=== PATIENT | female | born 1970 | race Caucasian/White ===

== ENCOUNTER 2020-02-27 13:07 | Outpatient (REF) | payer BC, SELFPAY | END 2020-02-27 13:08 | disposition home or self-care (01) | LOC: HO.HMGCLDS 13:07 | PROVIDERS: PCP Internal Medicine; Visit Provider Internal Medicine | DX: Z20.828 Contact with and (suspected) exposure to other viral communicable diseases (principal) | CPT/HCPCS: C9803; U0003 ==

== ENCOUNTER 2020-04-22 13:40 | Outpatient (REF) | payer BC, SELFPAY ==
--- NOTE | 2020-04-22 13:44 | MM_ITS ---
EXAMINATION: MM SCREENING DIGITAL BREAST TOMOSYNTHESIS, BILATERAL CLINICAL INFORMATION: Screening. Asymptomatic. The lifetime risk of breast cancer based on the Tyrer-Cuzick Model is 8%. COMPARISON: Mammography: 12/20/2018, 12/15/2018, 01/13/2017, 08/22/2015; targeted ultrasound left breast 12/20/2018 TECHNIQUE: Digital breast tomosynthesis is performed in both the craniocaudal and mediolateral oblique views along with computer-aided detection (CAD). Synthesized 2D images are generated from the tomosynthesis. FINDINGS: There are scattered areas of fibroglandular density (ACR BI-RADS breast composition Category b). Parenchymal pattern is similar to prior studies. There are scattered asymmetries similar to prior exams. There is no significant mass or architectural abnormality. No abnormal calcifications. The axilla are unremarkable. The skin contours are smooth. MM/MM tomosynthesis screening BI IMPRESSION: No significant changes from prior studies. ASSESSMENT: BI-RADS 1: Negative RECOMMENDATION: Routine annual mammography screening. This patient's information was entered into a reminder system with a target due date for their next mammogram.
== END 2020-04-22 13:41 | disposition home or self-care (01) ==
LOC: HO.MAMMO 13:40
PROVIDERS: PCP Internal Medicine; Visit Provider Internal Medicine
DX: Z12.31 Encounter for screening mammogram for malignant neoplasm of breast (principal)
CPT/HCPCS: 77063; 77067

== ENCOUNTER → 2020-06-18 08:41 | Outpatient (BNVA) | payer BC, SELFPAY | PROVIDERS: PCP Internal Medicine; Visit Provider Nurse Practitioner Gerontology | DX: E11.9 Type 2 diabetes mellitus without complications (principal); E66.9 Obesity, unspecified; I10 Essential (primary) hypertension; E78.00 Pure hypercholesterolemia, unspecified | CPT/HCPCS: 82947 ==

== ENCOUNTER 2021-12-13 08:58 | Outpatient (REF) | payer OTHER, SELFPAY ==
[2021-12-13 11:15] LABS: MANUAL DIFF FLAG NO
[2021-12-13 11:25] LABS: Basophils Absolute Auto 0.1 X10*3/uL (0.0-0.2); Basophils Percent Auto 0.8 % (0-2); Eosinophils Absolute Auto 0.1 X10*3/uL (0.0-0.4); Hematocrit 41.1 % (37.0-47.0); Hemoglobin 13.9 g/dl (12.0-16.0); Imm Gran Abs Auto 0.02 X10*3/uL (0.00-0.03); Imm Gran Pct Auto 0.3 % (0.0-0.4); Lymphocytes Absolute Auto 2.2 X10*3/uL (1.2-4.9); Mean Corpuscular HGB Conc 33.8 g/dl (31.0-35.0); Mean Corpuscular Volume 85.6 fL (80.0-98.0); Mean Platelet Volume 11.2 fL (9.4-12.3); Monocytes Absolute Auto 0.5 X10*3/uL (0.1-1.2); Monocytes Percent Auto 8.3 % (2-11); Neutrophils Absolute Auto 3.2 x10*3/uL (2.0-8.3); Neutrophils Percent Auto 52.6 % (45-73); Platelet Count 273 X10*3/uL (160-400); Red Cell Distribution Width 11.9 % (11.0-16.0)
[2021-12-13 11:35] LABS: Alanine Aminotransferase 19 U/L (0-31); Albumin Level 4.2 g/dL (3.5-5.0); Alkaline Phosphatase 64 U/L (39-117); Anion Gap 14 (12-20); Aspartate Amino Transferase 16 U/L (5-31); Bilirubin Total 0.4 mg/dL (0.0-1.0); Blood Urea Nitrogen 12 mg/dL (9-16); Calcium 9.3 mg/dL (8.4-10.2); Carbon Dioxide 27 mmol/L (22-29); Chloride 105 mmol/L (96-108); Cholesterol 205 mg/dL; Estimated Glomerular Filt Rate > 60; Glucose Random 103 mg/dL (60-115); HDL Cholesterol 50 mg/dL; LDL Cholesterol Calculated 138 mg/dl; Potassium 4.1 mmol/L (3.3-5.1); Sodium 142 mmol/L (135-145); Total Protein 7.1 g/dL (6.5-8.0); Triglycerides 88 mg/dL
[2021-12-13 11:48] LABS: Creatinine Urine 159.92 mg/dL; Microalbum/Creatinine Ratio Ur 9.3 ug/mg cr
[2021-12-13 12:01] LABS: Vitamin D 25-OH Total 37.7 ng/mL (>30)
[2021-12-13 12:08] LABS: Folate 16.6 ng/mL (> or = 4.0); Vitamin B12 1711 pg/mL (200-900)
== END 2021-12-13 08:59 | disposition home or self-care (01) ==
LOC: HO.HMGCLDS 08:58
PROVIDERS: PCP Internal Medicine; Visit Provider Internal Medicine
DX: K21.9 Gastro-esophageal reflux disease without esophagitis (principal); E78.00 Pure hypercholesterolemia, unspecified; E11.65 Type 2 diabetes mellitus with hyperglycemia
CPT/HCPCS: 36415; 80053; 80061; 82043; 82306; 82607; 82746; 84439; 84443; 85025

== ENCOUNTER 2022-10-13 14:44 | Outpatient (REF) | payer OTHER, SELFPAY ==
[2022-10-15 17:08] LABS: TS Negative Control Passed; TS Panel A 1; TS Panel B 0; TS Positive Control Passed; TSpotTB Negative (Negative)
== END 2022-10-13 14:45 | disposition home or self-care (01) ==
LOC: HO.LAB 14:44
PROVIDERS: PCP Internal Medicine; Visit Provider Internal Medicine
DX: Z11.1 Encounter for screening for respiratory tuberculosis (principal); I73.9 Peripheral vascular disease, unspecified
CPT/HCPCS: 36415; 86481

== ENCOUNTER 2022-11-18 14:09 | Outpatient (AMB) | payer OTHER, SELFPAY ==
[2022-11-18 14:14] VITALS: BP 126/82; PULSE 70; O2SAT 99; BMI 28.6
--- NOTE | 2022-11-18 14:14 | MHC.PC.OV ---
Vital Signs 11/18/22 14:14 Height 5 ft 6 in Weight 177 lb 6 oz BMI 28.6 BP 126/82 Blood Pressure Location Lt brachial Position Sitting Pulse 70 Pulse Source Pulse Oximeter Pulse Oximetry (%) 99 Oxygen Delivery Method Room Air Intake Visit Reasons: Ongoing back pain Intake Note: Pt is here for ongoing back pain since Wednesday. 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 Accompanied by: Self / Same As Patient Allergies morphine [MORPHINE] Allergy (Severe, Verified 11/18/22 14:32) REDNESS, RASH, ITCHING, rash Medication List - Last Reconciled 11/18/22 by Satnam Frost PA-C alprazolam 0.25 mg PO BEDTIME 90 days blood sugar diagnostic (FreeStyle Lite Strips) 1 strip miscellaneous DAILY 90 days compress.stocking,knee,reg,med As directed 20-30 mm HG hydrochlorothiazide 12.5 mg PO DAILY lisinopril 5 mg PO DAILY naproxen 500 mg PO BID omeprazole 20 mg PO DAILY sennosides-docusate sodium 8.6-50 mg (Senna Plus) 2 tab-caps (2 x 8.6-50 mg) PO BEDTIME sertraline 25 mg PO DAILY simvastatin 10 mg PO BEDTIME 30 days sitagliptin phosphate 100 mg PO DAILY zolpidem 5 mg PO BEDTIME 90 days Tobacco use date assessed: 07/08/22 Dental Screening Dental Screen Date: 11/18/22 Did you have a dental visit in the last 12 months?: Yes Did you have a dental problem in the last 6 months where you did not have access to dental care?: No Was dental information given to patient?: Patient has dentist HPI Ongoing back pain HPI Details Patient is a 52 year female here today for a problem visit. This is the 1st time I am meeting this 52-year-old female with a past medical history significant for type 2 diabetes, GERD, insomnia, hypertension hyperlipidemia. She reports a 1 week history of upper mid bilateral back pain. Has used muscle relaxers without much relief. Has seen her urgent care and did not get x-ray, was told her she was muscular. She does work at [employer] and physically demanding job where she has to turn her torso on a continual basis. [facility] Medical History (Updated 11/18/22 @ 14:34 by Satnam Frost PA-C) Bilateral hand pain COVID-19 virus infection Diabetes mellitus type 2, controlled, without complications GERD (gastroesophageal reflux disease) History of renal calculi Hypercholesterolemia Hypertension Insomnia Obesity (BMI 30-39.9) Right hip pain Tobacco abuse Type 2 diabetes mellitus with hyperglycemia Surgical History Diverticulitis History of kidney surgery History of tubal ligation Hx of abdominal surgery Family History Father Hypertension Mother Colon cancer Diabetes Sister Diabetes Family/Other Mental health disorder Social History Household Members: Spouse and Children Housing: House Alcohol intake: former Patient Tobacco Use Status: Former Tobacco user Tobacco use type: Cigarette Years Smoked: 2004 but vaping e-Cigarette/Vaping Use: Currently Using Second Hand Smoke Exposure: No service: No Current occupational status: employed Current occupational exposures/hazards: No Cognitive needs: No Hearing needs: No Vision needs: Yes Questionnaire Thrive Questionnaire Date Thrive assessed: 07/08/22 VICTORIA-7 AMB Questionnaire VICTORIA-7 Date VICTORIA - 7 assessed: 07/08/22 Source: Developed by Drs. Shorty Chin, Carmen Ramon, Zachary Schuster and colleagues, with an educational greg from [employer]. Physical exam (Primary Care) Vital Signs: Last Vital Signs Pulse 70 11/18/22 14:14 BP 126/82 11/18/22 14:14 Pulse Ox 99 11/18/22 14:14 Oxygen Delivery Method Room Air 11/18/22 14:14 BMI result Body Mass Index 28.6 Tobacco/Smoking Status: Tobacco use Status Tobacco use date assessed 07/08/22 11/18/22 14:19 Patient Tobacco Use Status Former Tobacco user 11/18/22 14:19 Tobacco use type Cigarette 11/18/22 14:19 e-Cigarette/Vaping Use Currently Using 11/18/22 14:19 Thrive Assessment: Date of Thrive Assessment Date Thrive assessed 07/08/22 11/18/22 14:19 Back/Spine/Pelvis Back/spine/pelvis image: 1. PAIN REPORTED IN THE AREA OUTLINED UPON MOVEMENT OF THE TORSO Assessment and Plan Assessment & Plan (1) Thoracic radiculitis: Code(s): M54.14 - Radiculopathy, thoracic region Plan: Patient's signs and symptoms most consistent with a Thoracics paraspinous muscular strain. She does work long hours doing physical work at [employer]. She has been using muscle relaxer though feels no improvement in her pain. Will supply patient with a 7 day prednisone taper and will send for thoracic spine x-rays and x-ray of the kidneys urinary bladder due to history of nephrolithiasis Orders: Orders PT Evaluation and Treatment 11/18/22 M54.14 - Radiculopathy, thoracic region XR KUB 11/18/22 Z87.442 - Personal history of urinary calculi XR thoracic spine 3V 11/18/22 M54.14 - Radiculopathy, thoracic region UA CC w/rflx Micro + Cult 11/18/22 R30.0 - Dysuria, Z87.442 - Personal history of urinary calculi Medications: New prednisone 10 mg PO DAILY 7 days 15 tabs 0RF M54.14 - Radiculopathy, thoracic region Coding Level of Care Code Est Pt Level 3 (89850) Diagnoses Thoracic radiculitis M54.14
== END 2022-11-18 14:55 | disposition home or self-care (01) ==
PROVIDERS: PCP Internal Medicine; Visit Provider Physician Assistant
DX: M54.14 Radiculopathy, thoracic region (principal)
CPT/HCPCS: 99213

== ENCOUNTER 2022-11-18 15:13 | Outpatient (REF) | payer OTHER, SELFPAY ==
--- NOTE | ~2022-11-18 | XR_ITS ---
EXAMINATION: XR ABDOMEN KUB CLINICAL INDICATION: Personal history of urinary calculi. COMPARISON: None available. TECHNIQUE: AP view of the abdomen. FINDINGS: The bowel gas pattern is normal. Fecal material obscures the left kidney. No definite radiopaque calculi are evident. Change sutures are noted in the pelvis as are phleboliths. XR/XR KUB IMPRESSION: No definite radiopaque calculi, though fecal material obscures the left kidney.
--- NOTE | ~2022-11-18 | XR_ITS ---
EXAMINATION: XR THORACIC SPINE CLINICAL INFORMATION: Radiculopathy. COMPARISON: None available. TECHNIQUE: 3 views of the thoracic spine were obtained. FINDINGS: There is no fracture or bone destruction seen and the vertebral alignment is normal. There is no disc space narrowing. There is no abnormality of the paraspinal soft tissues. Mild to moderate spondylotic changes are evident in the upper and mid thoracic spine. XR/XR thoracic spine 3V IMPRESSION: 1. Mild hypertrophic and spondylotic changes in the mid and upper thoracic spine.
[2022-11-18 16:02] LABS: Appearance Urine Clear; Color Urine Yellow; Glucose Urine UA Negative (Negative); Leukocyte Esterase Urine Negative (Negative); Nitrite Urine Negative (Negative); Specific Gravity - Urine <= 1.005 (1.005-1.025); Urine Blood Negative (Negative); Urine Ketones Negative (Negative); Urine Protein Negative (Neg-Trace)
== END 2022-11-18 15:14 | disposition home or self-care (01) ==
LOC: HO.LAB 15:13
PROVIDERS: PCP Internal Medicine; Visit Provider Physician Assistant
DX: M54.14 Radiculopathy, thoracic region (principal); R30.0 Dysuria; Z87.442 Personal history of urinary calculi
CPT/HCPCS: 72072; 74018; 81003

== ENCOUNTER 2022-12-14 17:25 | Outpatient (AMB) | payer OTHER, SELFPAY ==
[2022-12-14 17:28] VITALS: BP 110/76; PULSE 66; O2SAT 99; BMI 29.4
--- NOTE | 2022-12-14 17:28 | A.OFFPC_ITS ---
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 Accompanied by: Self / Same As Patient Allergies morphine [MORPHINE] Allergy (Severe, Verified 12/14/22 17:29) REDNESS, RASH, ITCHING, rash Medication List - Last Reconciled 12/14/22 by Jamal Oliva MD alprazolam 0.25 mg PO BEDTIME 90 days blood sugar diagnostic (FreeStyle Lite Strips) 1 strip miscellaneous DAILY 90 days compress.stocking,knee,reg,med As directed 20-30 mm HG hydrochlorothiazide 12.5 mg PO DAILY lisinopril 5 mg PO DAILY naproxen 500 mg PO BID omeprazole 20 mg PO DAILY sennosides-docusate sodium 8.6-50 mg (Senna Plus) 2 tab-caps (2 x 8.6-50 mg) PO BEDTIME simvastatin 10 mg PO BEDTIME 30 days zolpidem 5 mg PO BEDTIME 90 days Tobacco use date assessed: 07/08/22 Dental Screening Dental Screen Date: 12/14/22 Did you have a dental visit in the last 12 months?: Yes Did you have a dental problem in the last 6 months where you did not have access to dental care?: No Was dental information given to patient?: Patient has dentist HPI PHYSICAL HPI Details 52-year-old overweight female with contr olled diabetes mellitus hypertension hypercholesterolemia and generalized anxiety disorder last seen in June 2022 patient is here for physical exam. Mammogram is up-to-date, colonoscopy is up-to-date also August [address] Mohan(results patient end-to-end colocolonic anastomosis moderate stenosis, dilated) Pap smear last done in February 2019. Review of the notes patient was seen in October 2022 for ongoing back pain patient was sent for physical therapy. Patient comes in for physical exam. problem still with constipation [facility] Medical History (Updated 12/14/22 @ 17:34 by Jamal Oliva MD) Right hip pain Bilateral hand pain Diabetes mellitus type 2, controlled, without complications COVID-19 virus infection Type 2 diabetes mellitus with hyperglycemia History of renal calculi GERD (gastroesophageal reflux disease) Insomnia Obesity (BMI 30-39.9) Hypertension Hypercholesterolemia Tobacco abuse Surgical History Hx of abdominal surgery History of kidney surgery History of tubal ligation Diverticulitis Family History (Updated 12/14/22 @ 17:44 by Jamal Oliva MD) Father Hypertension Mother Colon cancer Diabetes Sister Diabetes Lymphoma Family/Other Mental health disorder Social History (Updated 12/14/22 @ 17:45 by Jamal Oliva MD) Household Members: Spouse and Children Housing: House Alcohol intake: current Patient Tobacco Use Status: Former Tobacco user Tobacco use type: Cigarette Years Smoked: 2004 but vaping e-Cigarette/Vaping Use: Currently Using Second Hand Smoke Exposure: No service: No Current occupational status: employed Current occupational exposures/hazards: No Cognitive needs: No Hearing needs: No Vision needs: Yes Questionnaire Thrive Questionnaire Date Thrive assessed: 07/08/22 VICTORIA-7 AMB Questionnaire VICTORIA-7 Date VICTORIA - 7 assessed: 07/08/22 Source: Developed by Drs. Shorty Chin, Carmen Ramon, Zachary Schuster and colleagues, with an educational greg from [employer]. Review of Systems Const Denies poor appetite and Denies weakness Eyes Denies no additional complaints ENT Reports Normal hearing present, Denies dizziness, Denies nasal congestion, Denies tinnitus and Denies sore throat Card Denies chest pain, Denies syncope, Denies rapid heart rate and Denies dyspnea Resp Denies cough and Denies dyspnea GI Denies change in stool character, Reports constipation, Denies diarrhea, Denies nausea and Denies vomiting Denies urinary frequency, Denies difficulty voiding and Denies dysuria Neuro Reports Normal hearing present, Denies confusion, Denies dizziness, Denies syncope and Denies weakness Psych Denies confusion Physical exam (Primary Care) BMI result Body Mass Index 29.4 Tobacco/Smoking Status: Tobacco use Status Tobacco use date assessed 07/08/22 11/18/22 14:19 Patient Tobacco Use Status Former Tobacco user 11/18/22 14:19 Tobacco use type Cigarette 11/18/22 14:19 e-Cigarette/Vaping Use Currently Using 11/18/22 14:19 Thrive Assessment: Date of Thrive Assessment Date Thrive assessed 07/08/22 11/18/22 14:19 Const General: No confusion Orientation/consciousness: No confusion HENMT Head: Yes normocephalic Ears: external ears normal and TM's normal bilaterally Face and sinus: Yes normal facial exam Mouth: moist mucous membranes Throat: Yes tonsils normal Eyes Conjunctivae: conjunctivae normal Pupils: Equal, round and reactive pupils present and Pupil accommodation reflex normal Direct Ophthalmoscopy: normal light reflex Neck Neck: No lymphadenopathy Thyroid: Thyroid normal Chest Chest palpation & inspection: normal inspection of the chest Resp Effort & Inspection: normal respiratory effort and no audible wheezes Auscultation: clear to auscultation bilaterally, no crackles, no wheezes and lung sounds not diminished Cardio Rate: regular rate Rhythm: regular rhythm Peripheral pulses: radial pulses present and dorsalis pedis present GI Palpation (GI): no masses Auscultation: normal bowel sounds and normoactive bowel sounds Rectal Exam - Female: deferred Skin General skin exam: no rashes or lesions noted Rashes: no rashes Neuro Other: pedal pulses good and pin prick good General: No confusion Cranial nerves: Yes Equal, round and reactive pupils present and Yes Normal hearing present Cognition (Neuro): normal cognition Gait exam (Neuro): Normal gait present Motor exam (neuro): 5/5 motor strength present throughout Deep tendon reflexes (DTR's): Right brachioradialis reflex intensity grade: 2+, Left brachioradialis reflex intensity grade: 2+, Right patellar reflex intensity grade: 2+ and Left patellar reflex intensity grade: 2+ Extrem General: No edema Results AMB Hemoglobin A1c AMB Hemoglobin A1c 6.2 % Last Edit by JHONNY Ayala on 12/14/22 17:4 5 Assessment and Plan Assessment & Plan (1) Annual physical exam: Code(s): Z00.00 - Encounter for general adult medical examination without abnormal findings (2) Type 2 diabetes mellitus with hyperglycemia: Comment: [facility] Code(s): E11.65 - Type 2 diabetes mellitus with hyperglycemia Qualifiers: Diabetes mellitus group home insulin use: without group home use Qualified Code(s): E11.65 - Type 2 diabetes mellitus with hyperglycemia (3) GERD (gastroesophageal reflux disease): Code(s): K21.9 - Gastro-esophageal reflux disease without esophagitis (4) Hypertension: Code(s): I10 - Essential (primary) hypertension Qualifiers: Hypertension type: essential hypertension Qualified Code(s): I10 - Essential (primary) hypertension (5) Hypercholesterolemia: Code(s): E78.00 - Pure hypercholesterolemia, unspecified (6) Overweight (BMI 25.0-29.9): Code(s): E66.3 - Overweight (7) Generalized anxiety disorder: Comment: Declined counseling June 2019 Code(s): F41.1 - Generalized anxiety disorder (8) Vaping nicotine dependence, non-tobacco product: Code(s): F17.200 - Nicotine dependence, unspecified, uncomplicated (9) Stenosis colon: Comment: August [address] Mohan Code(s): K56.699 - Other intestinal obstruction unspecified as to partial versus complete obstruction Plan: Patient just had colonoscopy done and dilation done. Colonoscopy p.r.n. Orders: Orders Comprehensive Met. Panel Today E11.65 - Type 2 diabetes mellitus with hyperglycemia Free T4 (Free Thyroxine) Today E11.65 - Type 2 diabetes mellitus with hyperglycemia Thyroid Stimulating Hormone Today E11.65 - Type 2 diabetes mellitus with hyperglycemia Vitamin B12 and Folate Today E11.65 - Type 2 diabetes mellitus with hyperglycemia Vitamin D 25-OH Total Today E11.65 - Type 2 diabetes mellitus with hyperglycemia Lipid Panel Today E11.65 - Type 2 diabetes mellitus with hyperglycemia, E78.00 - Pure hypercholesterolemia, unspecified Creatinine Urine Today E11.65 - Type 2 diabetes mellitus with hyperglycemia Complete Blood Count Auto Diff Today E11.65 - Type 2 diabetes mellitus with hyperglycemia Microalbumin, Random (w Creat) Today E11.65 - Type 2 diabetes mellitus with hyperglycemia AMB Hemoglobin A1c Today E11.65 - Type 2 diabetes mellitus with hyperglycemia Coding Level of Care Code Est Pt Prev Care 40-64y(82000) Diagnoses Annual physical exam Z00.00 Type 2 diabetes mellitus with hyperglycemia, without long-term current use of insulin E11.65 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
== END 2022-12-14 18:07 | disposition home or self-care (01) ==
PROVIDERS: PCP Internal Medicine; Visit Provider Internal Medicine
DX: Z23 Encounter for immunization (principal); Z00.00 Encounter for general adult medical examination without abnormal findings; E11.65 Type 2 diabetes mellitus with hyperglycemia; I10 Essential (primary) hypertension; F17.210 Nicotine dependence, cigarettes, uncomplicated
CPT/HCPCS: 83036; 90471; 90677; 99396

== ENCOUNTER 2023-02-09 10:16 | Outpatient (AMB) | payer OTHER, SELFPAY ==
[2023-02-09 11:21] VITALS: BP 124/72; PULSE 55; TEMP 35.8; O2SAT 96; BMI 29.9
--- NOTE | 2023-02-09 11:21 | AM.OFFWIN_ITS ---
Intake Vital Signs 02/09/23 11:21 Height 5 ft 6 in Weight 185 lb BMI 29.9 BP 124/72 Blood Pressure Location Rt brachial Position Sitting Pulse 55 Pulse Source Pulse Oximeter Temp 96.4 F L Temp Source Temporal Artery Scan Pulse Oximetry (%) 96 Oxygen Delivery Method Room Air Intake Visit Reasons: EP LT shoulder/neck pain Intake Note: Pt is here c/o left shoulder and left side neck pain. Pt states she sometimes feel a sharp pain when she moves her arm a certain way. Pt states she has been using otc medications, getting rest and using a heating pad at home. Pt states her shoulder gets worse at night. Pt states no falls or injuries. Pt states she does have arthritis in her spine. Patient Tobacco Use Status: Former Tobacco user Allergies morphine [MORPHINE] Allergy (Severe, Verified 04/09/23 18:14) REDNESS, RASH, ITCHING, rash Medication List - Last Reconciled 04/09/23 by Jeremy Carrion MD alprazolam 0.25 mg PO BEDTIME 90 days blood sugar diagnostic (FreeStyle Lite Strips) 1 strip miscellaneous DAILY 90 days compress.stocking,knee,reg,med As directed 20-30 mm HG cyclobenzaprine 10 mg PO BEDTIME hydrochlorothiazide 12.5 mg PO DAILY lisinopril 5 mg PO DAILY naproxen 500 mg PO BID omeprazole 20 mg PO DAILY sennosides-docusate sodium 8.6-50 mg (Senna Plus) 2 tab-caps (2 x 8.6-50 mg) PO BEDTIME simvastatin 10 mg PO BEDTIME 30 days zolpidem 5 mg PO BEDTIME 90 days HPI EP LT shoulder/neck pain HPI Details As above in the intake [facility] Medical History (Updated 12/14/22 @ 17:34 by Jamal Oliva MD) Right hip pain Bilateral hand pain Diabetes mellitus type 2, controlled, without complications COVID-19 virus infection Type 2 diabetes mellitus with hyperglycemia History of renal calculi GERD (gastroesophageal reflux disease) Insomnia Obesity (BMI 30-39.9) Hypertension Hypercholesterolemia Tobacco abuse Surgical History Hx of abdominal surgery History of kidney surgery History of tubal ligation Diverticulitis Family History (Updated 12/14/22 @ 17:44 by Jamal Oliva MD) Father Hypertension Mother Colon cancer Diabetes Sister Diabetes Lymphoma Family/Other Mental health disorder Social History (Updated 12/14/22 @ 17:45 by Jamal Oliva MD) Household Members: Spouse and Children Housing: House Alcohol intake: current Patient Tobacco Use Status: Former Tobacco user Tobacco use type: Cigarette Years Smoked: 2004 but vaping e-Cigarette/Vaping Use: Currently Using Second Hand Smoke Exposure: No service: No Current occupational status: employed Current occupational exposures/hazards: No Cognitive needs: No Hearing needs: No Vision needs: Yes Physical Exam Vital Signs: Last Vital Signs Temp 96.4 F L 02/09/23 11:21 Pulse 55 02/09/23 11:21 BP 124/72 02/09/23 11:21 Pulse Ox 96 02/09/23 11:21 Oxygen Delivery Method Room Air 02/09/23 11:21 BMI result Body Mass Index 29.9 Extrem Other: Limited range of motion at the shoulder joint. Assessment & Plan Assessment & Plan (1) Sprain of shoulder: Code(s): S43.409A - Unspecified sprain of unspecified shoulder joint, initial encounter Plan: Muscle relaxants ordered. Anti inflammatories to be continued. Medications: New cyclobenzaprine 10 mg PO BEDTIME 14 tabs 0RF Coding Level of Care Code Est Pt Level 3 (06105) Diagnoses Sprain of shoulder S43.409A
== END 2023-02-09 13:45 | disposition home or self-care (01) ==
PROVIDERS: PCP Internal Medicine; Visit Provider Internal Medicine
DX: S43.409A Unspecified sprain of unspecified shoulder joint, initial encounter (principal)
CPT/HCPCS: 99213

== ENCOUNTER 2023-03-10 09:30 | Outpatient (RCR) | payer OTHER, SELFPAY ==
--- NOTE | 2023-03-10 10:59 | MHC.PT.EP ---
[facility] [place] Office [place] Office [place] Office [address] Itzel Cerrato [address] [phone] F: [phone] F: [phone] F: [phone] F: [phone] Physical Therapy Plan of Care Date of Evaluation: 03/10/23 Date of Surgery: Diagnosis: Thoracic Radiculitis Assessment: Patient is a 53 year old R handed female who presents with s/s consistent with thoracic radiculitis, neck pain. She worked for [employer] but is currently unemployed. Patient past medical history includes many lumbar surgeries for kidney condition. Current impairments include pain, posture, ROM, strength, activity tolerance and functional mobility. Functional limitations include decreased ability to lift, sleep, stand, push, pull, carry, and work. Patient is motivated with good rehab potential. Skilled PT will address impairments and functional limitations in order to achieve goals. Frequency and Duration: The patient will be seen 2x/week for 5 weeks Short Term Goals: I with HEP - 2 weeks TTP absent - 3 weeks C-spine AROM 64 b/l - 3 weeks Custodial Officer Goals: min pec tightness - 5 weeks MT/LT 4/5 - 5 weeks Max pain with ADLs 2/10 - 5 weeks Treatment Plan: Modalities to reduce pain, spasms and effusion. Manual therapy to restore motion and function. Therapeutic exercise to improve strength and flexibility. Neuromuscular re-education for posture and balance. Therapeutic activities to return to functional activities of daily living. Electronically signed by: Koffi Ramirez, PT Please sign and return to therapist. Thank you for your referral.
--- NOTE | 2023-12-30 07:17 | MHC.PT.DC ---
[facility] [place] Office [place] Office [place] Office [address] Itzel Cerrato [address] [phone] F: [phone] F: [phone] F: [phone] F: [phone] Physical Therapy Discharge Report Diagnosis: Thoracic Radiculitis Date of Surgery: Date of Evaluation: 03/10/23 Date of Discharge: 05/04/23 Treatments to Date: 1 Cancellations to Date: No Shows to Date: Discharge Status: Patient Elected to Stop Discharge Summary: Patient is a 53 year old R handed female who presents with s/s consistent with thoracic radiculitis, neck pain. She worked for [employer] but is currently unemployed. Patient past medical history includes many lumbar surgeries for kidney condition. Current impairments include pain, posture, ROM, strength, activity tolerance and functional mobility. Functional limitations include decreased ability to lift, sleep, stand, push, pull, carry, and work. Patient is motivated with good rehab potential. Skilled PT will address impairments and functional limitations in order to achieve goals. Electronically signed by: Koffi Ramirez, PT Please sign and return to therapist. Thank you for your referral.
== END 2023-12-30 07:18 | disposition home or self-care (01) ==
LOC: HO.PTCHIC 09:30
PROVIDERS: PCP Internal Medicine; Visit Provider Physician Assistant
DX: M54.14 Radiculopathy, thoracic region (principal)
CPT/HCPCS: 97110; 97162

== ENCOUNTER 2023-05-24 13:15 | Outpatient (REF) | payer BC, SELFPAY ==
[2023-05-24 15:11] LABS: Estimated Average Glucose 143 mg/dL; Hemoglobin A1c % 6.6 % (<6.0)
[2023-05-24 15:36] LABS: Alanine Aminotransferase 23 U/L (0-31); Albumin Level 4.3 g/dL (3.5-5.0); Alkaline Phosphatase 93 U/L (39-117); Aspartate Amino Transferase 21 U/L (5-31); Bilirubin Direct 0.1 mg/dL (0.0-0.5); Bilirubin Total 0.3 mg/dL (0.0-1.0); Lipase 44 U/L (8-78); Total Protein 8.2 g/dL (6.5-8.0)
[2023-05-24 16:01] LABS: Folate 11.4 ng/mL (> or = 4.0); Vitamin B12 722 pg/mL (200-900)
[2023-05-28 17:23] LABS: Vitamin D 25-OH, D2 <4 ng/mL; Vitamin D 25-OH, D3 31 ng/mL; Vitamin D 25-OH, Total 31 ng/mL (30-100)
== END 2023-05-24 13:16 | disposition home or self-care (01) ==
LOC: HO.LAB 13:15
PROVIDERS: PCP Internal Medicine; Visit Provider Nurse Practitioner Family
DX: R10.9 Unspecified abdominal pain (principal); R74.01 Elevation of levels of liver transaminase levels; R19.7 Diarrhea, unspecified; E11.9 Type 2 diabetes mellitus without complications; E55.9 Vitamin D deficiency, unspecified
CPT/HCPCS: 36415; 80076; 82306; 82607; 82746; 83036; 83690

== ENCOUNTER 2023-05-24 13:15 | Outpatient (AMB) | payer BC, OTHER, SELFPAY ==
--- NOTE | 2023-05-24 13:25 | MHC.OFFVIS ---
Intake Vital Signs 05/24/23 13:26 Height 5 ft 6 in Weight 200 lb 2.876 oz BMI 32.3 BP 106/65 Blood Pressure Location Rt brachial Position Sitting Pulse 68 Intake Visit Reasons: intestinal obstruction unspecified Intake Note: New patient presents to in office visit today for constipation. CC: Patient with Hx of diverticulosis s/p partial colectomy c/o constipation, occasional bleeding hemorrhoids, and itching hemorrhoids. He states that she has to push to pass gas and feeling her rectum is always wet . Prepper Required: No Accompanied by: Self / Same As Patient Allergies morphine [MORPHINE] Allergy (Severe, Verified 05/24/23 13:33) REDNESS, RASH, ITCHING, rash HPI intestinal obstruction unspecified HPI Details 53-year-old female with past medical history of PVD, dysphagia, constipation, anxiety, diverticulosis, diverticulitis, GERD, insomnia, hypertension, hypercholesteremia, obesity, colon stenosis is here today for initial consultation. Patient was previously seen by GI at [facility], however patient unable to be seen due to her insurance. Patient has a history of partial colectomy for frequent diverticulitis. Patient has been having trouble moving her bowels. Reports to have abdominal cramping any time she has a bowel movement. Patient had last colonoscopy last year and reports that she had to have colonic dilation due to stenosis of her colon. Patient was using dicyclomine on as needed basis. Was given script for lactulose and senna with Colace. Patient states that she only takes it on the weekends as she has to work through the day. Patient did try MiraLax in the past. Reported it was helpful. Patient denies any melena, hematochezia, unintentional weight loss or ribbon like stools. Patient would like to be referred to general surgeon to see if she will require surgical intervention. [facility] Medical History (Updated 05/24/23 @ 17:29 by MINNA Maurer-) Right hip pain Bilateral hand pain Diabetes mellitus type 2, controlled, without complications COVID-19 virus infection Type 2 diabetes mellitus with hyperglycemia History of renal calculi GERD (gastroesophageal reflux disease) Insomnia Obesity (BMI 30-39.9) Hypertension Hypercholesterolemia Tobacco abuse Surgical History (Updated 05/24/23 @ 13:40 by Mihai Parrish [facility]) H/O colonoscopy Hx of abdominal surgery History of kidney surgery History of tubal ligation Diverticulitis Family History Father Hypertension Mother Colon cancer Diabetes Sister Diabetes Lymphoma Family/Other Mental health disorder Social History Household Members: Spouse and Children Housing: House Alcohol intake: current Patient Tobacco Use Status: Former Tobacco user Tobacco use type: Cigarette Years Smoked: 2004 but vaping e-Cigarette/Vaping Use: Currently Using Second Hand Smoke Exposure: No service: No Current occupational status: employed Current occupational exposures/hazards: No Cognitive needs: No Hearing needs: No Vision needs: Yes Review of Systems Const Denies weight gain and Denies weight loss ENT Reports no additional complaints, Denies dysphagia and Denies odynophagia Card Reports no additional complaints Resp Reports no additional complaints GI Denies abdominal pain, Denies belching, Denies melena, Reports bloating, Denies change in bowel habits, Reports constipation, Denies dysphagia, Denies excessive flatus, Denies dyspepsia, Denies heartburn, Denies diarrhea, Reports loose stools, Denies nausea, Denies odynophagia, Denies vomiting and Reports other (Rectal discomfort) Reports no additional complaints Musc Reports no additional complaints Neuro Reports no additional complaints Psych Reports no additional complaints Endo Reports no additional complaints Physical Exam Vital Signs: Last Vital Signs Pulse 68 05/24/23 13:26 BP 106/65 05/24/23 13:26 BMI result Body Mass Index 32.3 Const General: healthy appearing, no acute distress and well developed Nutritional Appearance: obese Orientation/consciousness: patient oriented x3 Resp Effort & Inspection: normal respiratory effort, able to speak in complete sentences, no tracheal deviation and symmetric chest movement Auscultation: clear to auscultation bilaterally Cardio Rate: regular rate GI Inspection: Yes normal to inspection, No distended and Yes obesity Palpation (GI): Soft to palpation, not firm, nontender and No hepatosplenomegaly present Auscultation: normal bowel sounds General: Yes no CVA tenderness Back/Spine/Pelvis Back: no CVA tenderness Skin General skin exam: elasticity normal, turgor normal and dry skin Neuro General: patient oriented x3 Psych Appearance: grossly normal Mental Status: mental status grossly normal Assessment & Plan Assessment & Plan (1) Stenosis colon: Comment: August [address] Mohan Code(s): K56.699 - Other intestinal obstruction unspecified as to partial versus complete obstruction (2) Constipation: Code(s): K59.00 - Constipation, unspecified Qualifiers: Constipation type: chronic idiopathic constipation Qualified Code(s): K59.04 - Chronic idiopathic constipation (3) GERD (gastroesophageal reflux disease): Code(s): K21.9 - Gastro-esophageal reflux disease without esophagitis Qualifiers: Esophagitis presence: esophagitis presence not specified Qualified Code(s): K21.9 - Gastro-esophageal reflux disease without esophagitis (4) IBS (irritable bowel syndrome): Code(s): K58.9 - Irritable bowel syndrome without diarrhea Qualifiers: Irritable bowel syndrome type: without diarrhea Qualified Code(s): K58.9 - Irritable bowel syndrome without diarrhea Plan Patient will stop lactulose and will start taking MiraLax twice a day. Patient can continue taking 2 senna/docusate sodium combination at night time. Patient was encouraged to take this every day so she empties her bowels better. Patient reports rectal itching and rectal pain occasional blood after bowel movement when wiping. Will check lipase, liver panel. Patient will be sent to see General surgery. Patient might need to go for colonoscopy for another dilation if she continues to have constipation. Patient however is not taking medications as she should. She was advised to try to take the medication for at least couple weeks to see if she can make her bowels more on a regular schedule. I will see patient in 2 months, sooner on as needed basis. Patient is agreeable to this plan and verbalizes understanding of instructions. She was given the opportunity to ask questions and all questions answered. Thank you for allowing me to participate in her care Orders: Orders Liver Panel Today R74.01 - Elevation of levels of liver transaminase levels Lipase Today R10.9 - Unspecified abdominal pain Hemoglobin A1c Today E11.9 - Type 2 diabetes mellitus without complications Vitamin B12 and Folate Today R19.7 - Diarrhea, unspecified Vitamin D 25-OH (D2 and D3) Today E55.9 - Vitamin D deficiency, unspecified Referrals General Surgery Referral K42.9 - Umbilical hernia without obstruction or gangrene Medications: New polyethylene glycol 3350 (Miralax) 17 grams PO DAILY 510 grams 2RF polyethylene glycol 3350 (Miralax) 17 grams PO BID 510 grams 2RF hydrocortisone 2.5% (Proctosol HC) 1 appl ID BID-QID PRN 30 grams 2RF hemorrhoids K64.9 - Unspecified hemorrhoids Coding Level of Care Code New Pt Level 4 (99311) Diagnoses Stenosis colon K56.699 Chronic idiopathic constipation K59.04 Constipation type: chronic idiopathic constipation Gastroesophageal reflux disease, unspecified whether esophagitis present K21.9 Esophagitis presence: esophagitis presence not specified Irritable bowel syndrome without diarrhea K58.9 Irritable bowel syndrome type: without diarrhea Time Spent (min) 45 Comment 30 minutes spent with patient and additional 15 minutes spent reviewing her records
[2023-05-24 13:26] VITALS: BP 106/65; PULSE 68; BMI 32.3
== END 2023-05-24 14:32 | disposition home or self-care (01) ==
PROVIDERS: PCP Internal Medicine; Visit Provider Nurse Practitioner Family
DX: K56.699 Other intestinal obstruction unspecified as to partial versus complete obstruction (principal); K59.04 Chronic idiopathic constipation; K21.9 Gastro-esophageal reflux disease without esophagitis; K58.9 Irritable bowel syndrome, unspecified
CPT/HCPCS: 99204

== ENCOUNTER 2023-05-31 13:42 | Outpatient (AMB) | payer BC, SELFPAY ==
--- NOTE | 2023-05-31 13:57 | MHC.OFFVIS ---
Intake Vital Signs 05/31/23 14:08 Height 5 ft 6 in Weight 200 lb BMI 32.3 BP 133/80 Blood Pressure Location Rt brachial Position Sitting Pulse 69 Intake Visit Reasons: Colectomy Intake Note: Patient referred by MAN Flores. Patient c/o chronic constipation, cramps. Patient feels like there is intestine inflammation. Reports hx of diverticulosis surgery in [facility]. Colonoscopy: August 2022. [employer] Supervisor Required: Yes Accompanied by: Self / Same As Patient Allergies morphine [MORPHINE] Allergy (Severe, Verified 05/31/23 14:11) REDNESS, RASH, ITCHING, rash HPI HPI Comments History of Present Illness Details Patient presents for what appears to be an anastomotic stricture. In 1999 at an outside facility and [place], patient states she had a sigmoid resection for diverticular disease and also had part of her transverse colon resected. Over the last few years, she has had difficulty passing stool and had a recent colonoscopy in August at [facility] where she describes what seems to have been an anastomotic stricture which was dilated. She still has persistence of her difficulty in passing stool. Caliber small, and she is having abdominal cramping. Current plan is to obtain the recent colonoscopy in old operative records if possible. Chart was reviewed and patient evaluated [facility] Medical History Right hip pain Bilateral hand pain Diabetes mellitus type 2, controlled, without complications COVID-19 virus infection Type 2 diabetes mellitus with hyperglycemia History of renal calculi GERD (gastroesophageal reflux disease) Insomnia Obesity (BMI 30-39.9) Hypertension Hypercholesterolemia Tobacco abuse Surgical History H/O colonoscopy Hx of abdominal surgery History of kidney surgery History of tubal ligation Diverticulitis Family History Father Hypertension Mother Colon cancer Diabetes Sister Diabetes Lymphoma Family/Other Mental health disorder Social History Household Members: Spouse and Children Housing: House Alcohol intake: current Patient Tobacco Use Status: Former Tobacco user Tobacco use type: Cigarette Years Smoked: 2004 but vaping e-Cigarette/Vaping Use: Currently Using Second Hand Smoke Exposure: No service: No Current occupational status: employed Current occupational exposures/hazards: No Cognitive needs: No Hearing needs: No Vision needs: Yes Physical Exam Vital Signs: Last Vital Signs Pulse 69 05/31/23 14:08 BP 133/80 05/31/23 14:08 BMI result Body Mass Index 32.3 GI Other: Mildly corpulent abdomen. Well-healed lower midline scar. Abdomen otherwise soft and benign. Assessment & Plan Assessment & Plan (1) Stenosis colon: Comment: August [address] Mohan Code(s): K56.699 - Other intestinal obstruction unspecified as to partial versus complete obstruction Plan I discussed the case with the GI PA last week. The current plan is to obtain a barium enema to outline the anatomy and also show the stricture and what colon is remaining after her surgeries. Patient has been instructed to take a Fleet's enema the night before and the morning of her barium enema. She will see me after the study. All questions answered. Coding Level of Care Code New Pt Level 4 (48564) Diagnoses Stenosis colon K56.699
[2023-05-31 14:08] VITALS: BP 133/80; PULSE 69; BMI 32.3
== END 2023-05-31 14:28 | disposition home or self-care (01) ==
PROVIDERS: PCP Internal Medicine; Referring Provider Nurse Practitioner Family; Visit Provider Surgery
DX: K56.699 Other intestinal obstruction unspecified as to partial versus complete obstruction (principal)
CPT/HCPCS: 99204

== ENCOUNTER → 2023-05-31 13:42 | Outpatient (BNVA) | payer BC, SELFPAY | PROVIDERS: PCP Internal Medicine; Referring Provider Nurse Practitioner Family; Visit Provider Surgery ==

== ENCOUNTER 2023-06-07 10:50 | Outpatient (REF) | payer BC, SELFPAY ==
--- NOTE | ~2023-06-07 | FL_ITS ---
EXAMINATION: FL BARIUM ENEMA CLINICAL INFORMATION: Status post sigmoidectomy for recurrent diverticulitis. Anastomotic stricture on prior colonoscopy. Constipation. COMPARISON: None available. Correlation made with CT abdomen and pelvis 11/17/2019. TECHNIQUE: Retrograde Gastrografin was inserted through a rectal tube. Multiple spot images were then performed. FINDINGS: Tailor Apprentice view demonstrates a normal bowel gas pattern. Anastomotic chain sutures are seen overlying the sacrum within the central pelvis. There are calcifications overlying the left renal shadow inferiorly measuring 1.0 cm in diameter. There is passage of Gastrografin from the rectum to the distal ileum. There is a moderate stricture at the rectosigmoid anastomosis (RF 1-6 106/164; RF 1-4, image 51/124)), however contrast passes through without difficulty. The remainder of the colon is normal in caliber and course. Filling defects in the lumen are consistent with mild to moderate retained stool. No masses or significant diverticula. No additional stricture identified. Contrast refluxes into the appendix. FLUOROSCOPY TIME: 4 minutes 43 seconds DOSE AREA PRODUCT: 1559 uGy-m2 (microgray-meter squared) FL/FL barium enema IMPRESSION: 1. 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 Gastrografin passes from the rectum to the distal ileum. 3. The colon is otherwise normal in course and caliber. 4. Left nephrolithiasis. This procedure was performed by Matt Howe PA-C, and supervised by Dr. Khan
== END 2023-06-07 10:51 | disposition home or self-care (01) ==
LOC: HO.XRAY 10:50
PROVIDERS: PCP Internal Medicine; Visit Provider Nurse Practitioner Family
DX: K56.699 Other intestinal obstruction unspecified as to partial versus complete obstruction (principal)
CPT/HCPCS: 74270

== ENCOUNTER → 2023-06-07 10:52 | Outpatient (BNV) | payer BC, SELFPAY | PROVIDERS: PCP Internal Medicine; Visit Provider Physician Assistant Surgical | DX: K56.699 Other intestinal obstruction unspecified as to partial versus complete obstruction (principal) | CPT/HCPCS: 74270 ==

== ENCOUNTER 2023-06-14 13:05 | Outpatient (AMB) | payer BC, SELFPAY ==
[2023-06-14 13:11] VITALS: BP 122/71; PULSE 67; BMI 32.8
--- NOTE | 2023-06-14 13:11 | MHC.OFFVIS ---
Intake Vital Signs 06/14/23 13:11 Height 5 ft 6 in Weight 203 lb BMI 32.8 BP 122/71 Blood Pressure Location Rt brachial Position Sitting Pulse 67 Intake Visit Reasons: Follow Up Barium enema Intake Note: Patient here to discuss results of barium enema on 06-07-23. Patient c/o: reports no concerns. Cnc Machine Setter Required: No Accompanied by: Self / Same As Patient Allergies morphine [MORPHINE] Allergy (Severe, Verified 06/14/23 13:12) REDNESS, RASH, ITCHING, rash HPI HPI Comments History of Present Illness Details Patient presents for follow-up status post barium enema for anastomotic stricture status post sigmoid surgery at [facility]. Patient has had balloon dilation once but a year ago at that facility. Enema confirms moderate stricture. I discussed her with Jenny, at the GI clinic that I would recommend attempting balloon dilatation 1st before embarking on surgical anastomotic revision. This was reviewed with the patient and she is willing to pursue this with Dr. Frank. Arrangements were made for this. [facility] Medical History Right hip pain Bilateral hand pain Diabetes mellitus type 2, controlled, without complications COVID-19 virus infection Type 2 diabetes mellitus with hyperglycemia History of renal calculi GERD (gastroesophageal reflux disease) Insomnia Obesity (BMI 30-39.9) Hypertension Hypercholesterolemia Tobacco abuse Surgical History H/O colonoscopy Hx of abdominal surgery History of kidney surgery History of tubal ligation Diverticulitis Family History Father Hypertension Mother Colon cancer Diabetes Sister Diabetes Lymphoma Family/Other Mental health disorder Social History Household Members: Spouse and Children Housing: House Alcohol intake: current Patient Tobacco Use Status: Former Tobacco user Tobacco use type: Cigarette Years Smoked: 2004 but vaping e-Cigarette/Vaping Use: Currently Using Second Hand Smoke Exposure: No service: No Current occupational status: employed Current occupational exposures/hazards: No Cognitive needs: No Hearing needs: No Vision needs: Yes Physical Exam Vital Signs: Last Vital Signs Pulse 67 06/14/23 13:11 BP 122/71 06/14/23 13:11 BMI result Body Mass Index 32.8 GI Other: Abdomen is soft, benign Assessment & Plan Assessment & Plan (1) Stenosis colon: Comment: August [address] Mohan Code(s): K56.699 - Other intestinal obstruction unspecified as to partial versus complete obstruction Plan Plan is as noted above, Dr. Frank/GI consult for anastomotic stricture dilation. May require several sessions. If this does not work, patient will then be considered for operative intervention. All questions answered. Coding Level of Care Code Est Pt Level 4 (72949) Diagnoses Stenosis colon K56.699
== END 2023-06-14 13:44 | disposition home or self-care (01) ==
PROVIDERS: PCP Internal Medicine; Referring Provider Nurse Practitioner Family; Visit Provider Surgery
DX: K56.699 Other intestinal obstruction unspecified as to partial versus complete obstruction (principal)
CPT/HCPCS: 99214

== ENCOUNTER → 2023-06-14 13:05 | Outpatient (BNVA) | payer BC, SELFPAY | PROVIDERS: PCP Internal Medicine; Referring Provider Nurse Practitioner Family; Visit Provider Surgery ==

== ENCOUNTER 2023-06-16 08:20 | Outpatient (AMB) | payer BC, SELFPAY ==
[2023-06-16 08:30] VITALS: BP 122/70; PULSE 75; O2SAT 100; BMI 32.6
--- NOTE | 2023-06-16 08:30 | A.OFFPC_ITS ---
Vital Signs 06/16/23 08:30 Height 5 ft 6 in Weight 202 lb BMI 32.6 BP 122/70 Blood Pressure Location Lt brachial Position Sitting Pulse 75 Pulse Source Pulse Oximeter Pulse Oximetry (%) 100 Oxygen Delivery Method Room Air Intake Visit Reasons: 6 month f/u Intake Note: Patient is here to follow up on 6 months Adjunct Professor Of English Required: No Allergies morphine [MORPHINE] Allergy (Severe, Verified 06/16/23 08:30) REDNESS, RASH, ITCHING, rash Tobacco use date assessed: 06/16/23 HPI 6 month f/u HPI Details 53-year-old obese female with diabetes m ellitus hypertension hypercholesterolemia generalized anxiety disorder GERD coming in for follow-up. Last seen in November 2022 mammogram is due in [facility] colonoscopy up-to-date with August 2022. Patient had a colon surgery January 2020(laparoscopic resection of rectosigmoid with colorectal anastomosis and laparoscopic mobilization of splenic flexure for diverticulitis at [facility] had balloon dilatation a year ago August [address] Mohan. Barium Enema May 2023: Moderate stricture at the rectosigmoid anastomosis 2. Gastrografin passes from the rectum t o the distal ileum. 3. The colon is otherwise normal in cour se and caliber. 4. Left nephrolithiasis. does confirm moderate stricture September, discussed with the patient regarding the need to have the blood work done. Patient is asking for the weight loss medication wegovy but discussed with the patient that with diabetes medication we can do the Ozempic prescription but question of being covered as the patient has not been on any other medication for diabetes. Advised patient that it would be better for her to fix the colon stenosis 1st before starting on the medication. With the patient insists on wanting to get the prescription for this medication. Also patient is vaping so much right now and is asking for the patches to help stop the vaping. PFSH Medical History Right hip pain Bilateral hand pain Diabetes mellitus type 2, controlled, without complications COVID-19 virus infection Type 2 diabetes mellitus with hyperglycemia History of renal calculi GERD (gastroesophageal reflux disease) Insomnia Obesity (BMI 30-39.9) Hypertension Hypercholesterolemia Tobacco abuse Surgical History H/O colonoscopy Hx of abdominal surgery History of kidney surgery History of tubal ligation Diverticulitis Family History Father Hypertension Mother Colon cancer Diabetes Sister Diabetes Lymphoma Family/Other Mental health disorder Social History Household Members: Spouse and Children Housing: House Alcohol intake: current Patient Tobacco Use Status: Former Tobacco user Tobacco use type: Cigarette Years Smoked: 2005 but vaping e-Cigarette/Vaping Use: Currently Using Second Hand Smoke Exposure: No service: No Current occupational status: employed Current occupational exposures/hazards: No Cognitive needs: No Hearing needs: No Vision needs: Yes Questionnaire Thrive Questionnaire Date Thrive assessed: 06/16/23 I am a: Patient What is your living situation today?: I have a steady place to live Within the past 12 months, did the food you bought not last and you didn't have the money to get more?: Never true Within the past 12 months, did you worry whether your food would run out before you got money to buy more?: Never true Do you have trouble paying for medicines?: No Do you have trouble getting transportation to medical appointments?: No Do you have trouble paying your heating and electricity bill?: No Do you have trouble taking care of your child, family member or friend?: No Do you have trouble with day-to-day activities such as bathing, preparing meals, shopping, managing finances, etc.?: No Are you currently unemployed and looking for a job?: No Are you interested in more education?: No Please select the resources that you would like help with: None THRIVE Score: 0 AUDIT C Alcohol Use Questionnaire (AUDIT-C) 1. How often do you have a drink containing alcohol?: Never 3. How often do you have six or more drinks on one occasion?: Never Total Score: 0 VICTORIA-7 AMB Questionnaire VICTORIA-7 Date VICTORIA - 7 assessed: 07/08/22 Source: Developed by Drs. Shorty Chin, Carmen Ramon, Zachary Schuster and colleagues, with an educational greg from [employer]. Physical exam (Primary Care) Vital Signs: Last Vital Signs Pulse 75 06/16/23 08:30 BP 122/70 06/16/23 08:30 Pulse Ox 100 06/16/23 08:30 Oxygen Delivery Method Room Air 06/16/23 08:30 BMI result Body Mass Index 32.6 Tobacco/Smoking Status: Tobacco use Status Tobacco use date assessed 06/16/23 06/16/23 08:31 Patient Tobacco Use Status Former Tobacco user 06/16/23 08:31 Tobacco use type Cigarette 06/16/23 08:31 e-Cigarette/Vaping Use Currently Using 06/16/23 08:31 Thrive Assessment: Date of Thrive Assessment Date Thrive assessed 06/16/23 06/16/23 08:31 Const General: alert; No acute distress Eyes Conjunctivae: conjunctivae normal Resp Auscultation: clear to auscultation bilaterally Cardio Rate: regular rate Rhythm: regular rhythm GI Inspection: Yes normal to inspection Extrem General: Yes normal to inspection and No edema Assessment and Plan Assessment & Plan (1) Type 2 diabetes mellitus with hyperglycemia: Comment: [facility] Code(s): E11.65 - Type 2 diabetes mellitus with hyperglycemia Qualifiers: Diabetes mellitus senior care insulin use: without lobsterman use Qualified Code(s): E11.65 - Type 2 diabetes mellitus with hyperglycemia Plan: Decrease the amount of carbohydrate intake, pasta, bread, rice and potatoes are all sugar and that is aside from all the sweet stuff, remember that fruits are good but they are Sweet also. Hemoglobin A1c goal of less than 6.5. Presently on diet control (2) Hypertension: Code(s): I10 - Essential (primary) hypertension Qualifiers: Hypertension type: essential hypertension Qualified Code(s): I10 - Essential (primary) hypertension Plan: Continue with blood pressure medication. Decrease salt intake and exercise on lisinopril 5 mg once a day hydrochlorothiazide 12.5 mg once a day (3) Hypercholesterolemia: Code(s): E78.00 - Pure hypercholesterolemia, unspecified Plan: Avoid fried foods, chicken skin, eggs, butter margarine, pastries and meat. Be it pork or beef they have a lot of cholesterol LDL goal of less than 100 and triglyceride of less than 150 last blood work was done 2020. On simvastatin 10 mg at bedtime (4) Obesity (BMI 30-39.9): Code(s): E66.9 - Obesity, unspecified Plan: Diet and exercise (5) GERD (gastroesophageal reflux disease): Code(s): K21.9 - Gastro-esophageal reflux disease without esophagitis Qualifiers: Esophagitis presence: esophagitis presence not specified Qualified Code(s): K21.9 - Gastro-esophageal reflux disease without esophagitis Plan: Avoid the foods that causes that usually spicy foods, tomato products, juices, coffee, soda and foods that your sensitive to. After eating do not lie down, allow 3-4 hours before in lie down. And keep the head of bed above 30 degrees to avoid the acid from going up. (6) History of renal calculi: Comment: Left 2 mm November 2019 Code(s): Z87.442 - Personal history of urinary calculi Plan: Keep well hydrated (7) Generalized anxiety disorder: Comment: Declined counseling June 2019 Code(s): F41.1 - Generalized anxiety disorder Plan: Continue with present medication as needed (8) Stenosis colon: Comment: August [address] Mohan Code(s): K56.699 - Other intestinal obstruction unspecified as to partial versus complete obstruction Plan: Patient is being followed up by the terrazzo worker helper and planned colonoscopy again. (9) Vaping nicotine dependence, non-tobacco product: Code(s): F17.200 - Nicotine dependence, unspecified, uncomplicated Medications: New nicotine 1 patch transdermal DAILY 28 ea 0RF F17.200 - Nicotine dependence, unspecified, uncomplicated semaglutide (Ozempic) for 4 weeks 0.25 mg (0.368 mL) subcut QWEEK 3 mL 0RF E11.65 - Type 2 diabetes mellitus with hyperglycemia Coding Level of Care Code Est Pt Level 4 (43039) Diagnoses Type 2 diabetes mellitus with hyperglycemia, without long-term current use of insulin E11.65 Diabetes mellitus senior care insulin use: without lobsterman use Essential hypertension I10 Hypertension type: essential hypertension Hypercholesterolemia E78.00 Obesity (BMI 30-39.9) E66.9 Gastroesophageal reflux disease, unspecified whether esophagitis present K21.9 Esophagitis presence: esophagitis presence not specified History of renal calculi Z87.442 Generalized anxiety disorder F41.1 Stenosis colon K56.699 Vaping nicotine dependence, non-tobacco product F17.200
== END 2023-06-16 09:10 | disposition home or self-care (01) ==
PROVIDERS: PCP Internal Medicine; Visit Provider Internal Medicine
DX: E11.65 Type 2 diabetes mellitus with hyperglycemia (principal); E66.9 Obesity, unspecified; K56.699 Other intestinal obstruction unspecified as to partial versus complete obstruction; Z68.32 Body mass index [BMI] 32.0-32.9, adult; I10 Essential (primary) hypertension; E78.00 Pure hypercholesterolemia, unspecified; K21.9 Gastro-esophageal reflux disease without esophagitis; Z87.442 Personal history of urinary calculi; F41.1 Generalized anxiety disorder; F17.210 Nicotine dependence, cigarettes, uncomplicated
CPT/HCPCS: 99214

== ENCOUNTER 2023-06-29 13:40 | Outpatient (AMB) | payer BC, SELFPAY ==
[2023-06-29 13:46] VITALS: BP 132/81; PULSE 77
--- NOTE | 2023-06-29 13:46 | A.OFFVIS_ITS ---
Intake Vital Signs 06/29/23 13:46 Height 5 ft 6 in Weight 20 lb BMI 3.2 BP 132/81 Blood Pressure Location Rt brachial Position Sitting Pulse 77 Intake Visit Reasons: Umbilical hernia Intake Note: Patient referred by Ayaka Flores for umbilical hernia. Denies pain or discomfort. Patient c/o: reports recent enema procedure was very difficult. 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 I spoke with Dr. Frank, gastroenterology about consideration for balloon dilation before proceeding 20 surgical resection. Lengthy discussion was had with patient regarding this and she agrees to at least meet with Dr. Frank and discuss balloon dilation procedure with him. [facility] Medical History Right hip pain Bilateral hand pain Diabetes mellitus type 2, controlled, without complications COVID-19 virus infection Type 2 diabetes mellitus with hyperglycemia History of renal calculi GERD (gastroesophageal reflux disease) Insomnia Obesity (BMI 30-39.9) Hypertension Hypercholesterolemia Tobacco abuse Surgical History H/O colonoscopy Hx of abdominal surgery History of kidney surgery History of tubal ligation Diverticulitis Family History Father Hypertension Mother Colon cancer Diabetes Sister Diabetes Lymphoma Family/Other Mental health disorder Social History Household Members: Spouse and Children Housing: House Alcohol intake: current Patient Tobacco Use Status: Former Tobacco user Tobacco use type: Cigarette Years Smoked: 2004 but vaping e-Cigarette/Vaping Use: Currently Using Second Hand Smoke Exposure: No service: No Current occupational status: employed Current occupational exposures/hazards: No Cognitive needs: No Hearing needs: No Vision needs: Yes Physical Exam Vital Signs: Last Vital Signs Pulse 77 06/29/23 13:46 BP 132/81 06/29/23 13:46 BMI result Body Mass Index 3.2 GI Other: Abdomen corpulent, soft, benign Assessment & Plan Assessment & Plan (1) Stenosis colon: Comment: August [address] Mohan Code(s): K56.699 - Other intestinal obstruction unspecified as to partial versus complete obstruction Plan Plan is as noted above for GI consultation and direct further interventions and studies based on GI input and intervention. All questions answered. Arrangements were made for follow-up with Dr. Jarvis. Coding Level of Care Code Est Pt Level 4 (95109) Diagnoses Stenosis colon K56.699
== END 2023-06-29 14:01 | disposition home or self-care (01) ==
PROVIDERS: PCP Internal Medicine; Referring Provider Nurse Practitioner Family; Visit Provider Surgery
DX: K56.699 Other intestinal obstruction unspecified as to partial versus complete obstruction (principal)
CPT/HCPCS: 99214

== ENCOUNTER → 2023-06-29 13:40 | Outpatient (BNVA) | payer BC, SELFPAY | PROVIDERS: PCP Internal Medicine; Referring Provider Nurse Practitioner Family; Visit Provider Surgery ==

== ENCOUNTER 2023-07-26 12:45 | Outpatient (AMB) | payer BC, SELFPAY ==
[2023-07-26 12:57] VITALS: BP 124/84; PULSE 68; BMI 32.0
--- NOTE | 2023-07-26 12:57 | MHC.OFFVIS ---
Vital Signs 07/26/23 12:57 Height 5 ft 6 in Weight 198 lb 6.656 oz BMI 32.0 BP 124/84 Blood Pressure Location Lt brachial Position Sitting Pulse 68 Intake Visit Reasons: 2 months follow up labs Intake Note: Yoli returns in 2 months follow up of constipation and labs. CC: Patient reports rectal bleeding yesterday but states that she is doing better from constipation with the Miralax. Also, she states abdominal pain sometimes especially when the weather is cold. Options Advisor Required: No Accompanied by: Self / Same As Patient Allergies morphine [MORPHINE] Allergy (Severe, Verified 07/26/23 13:03) REDNESS, RASH, ITCHING, rash HPI HPI 2 months follow up labs: Details: LAST VISIT Stenosis colon Constipation GERD (gastroesophageal reflux disease) IBS (irritable bowel syndrome) Plan Patient will stop lactulose and will start taking MiraLax twice a day. Patient can continue taking 2 senna/docusate sodium combination at night time. Patient was encouraged to take this every day so she empties her bowels better. Patient reports rectal itching and rectal pain occasional blood after bowel movement when wiping. Will check lipase, liver panel. Patient will be sent to see General surgery. Patient might need to go for colonoscopy for another dilation if she continues to have constipation. Patient however is not taking medications as she should. She was advised to try to take the medication for at least couple weeks to see if she can make her bowels more on a regular schedule. I will see patient in 2 months, sooner on as needed basis. Patient is agreeable to this plan and verbalizes understanding of instructions. She was given the opportunity to ask questions and all questions answered. ? Thank you for allowing me to participate in her care Orders Orders Liver Panel Today R74.01 Lipase Today R10.9 Hemoglobin A1c Today E11.9 Vitamin B12 and Folate Today R19.7 Vitamin D 25-OH (D2 and D3) Today E55.9 Referrals General Surgery Referral K42.9 Medications New polyethylene glycol 3350 (Miralax) 17 grams PO DAILY 510 grams 2RF polyethylene glycol 3350 (Miralax) 17 grams PO BID 510 grams 2RF hydrocortisone 2.5% (Proctosol HC) 1 appl MT BID-QID PRN 30 grams 2RF hemorrhoids K64.9 TODAY'S VISIT Patient is here today for follow-up and to discuss CT scan results. Moderate stricture of rectosigmoid anastomosis. Last dilation was in August of 2022. That was done at [facility]. Patient reports that she is moving her bowels better now. Denies melena, hematochezia, unintentional weight loss or ribbon like stools. Small amount of blood after bowel movement yesterday seen due to straining. Patient reports that she is drinking plenty fluids. Proctosol is helping her with hemorrhoids. Patient denies any abdominal pain or discomfort. Seen by Dr. Hyde on June 29 to evaluate umbilical hernia, normal exam. Patient does have scar tissue around her umbilical region and reports pain when it is cold. COUNTS INCLUDE 234 BEDS AT THE [facility] Medical History Right hip pain Bilateral hand pain Diabetes mellitus type 2, controlled, without complications COVID-19 virus infection Type 2 diabetes mellitus with hyperglycemia History of renal calculi GERD (gastroesophageal reflux disease) Insomnia Obesity (BMI 30-39.9) Hypertension Hypercholesterolemia Tobacco abuse Surgical History H/O colonoscopy Hx of abdominal surgery History of kidney surgery History of tubal ligation Diverticulitis Family History Father Hypertension Mother Colon cancer Diabetes Sister Diabetes Lymphoma Family/Other Mental health disorder Social History Household Members: Spouse and Children Housing: House Alcohol intake: current Patient Tobacco Use Status: Former Tobacco user Tobacco use type: Cigarette Years Smoked: 2004 but vaping e-Cigarette/Vaping Use: Currently Using Second Hand Smoke Exposure: No service: No Current occupational status: employed Current occupational exposures/hazards: No Cognitive needs: No Hearing needs: No Vision needs: Yes Physical Exam Vital Signs: BMI result Body Mass Index 32.0 Const General: healthy appearing, no acute distress and well developed Nutritional Appearance: obese Orientation/consciousness: patient oriented x3 Resp Effort & Inspection: normal respiratory effort, able to speak in complete sentences, no tracheal deviation and symmetric chest movement Auscultation: clear to auscultation bilaterally Cardio Rate: regular rate GI Other: Old surgical scars Inspection: No distended and Yes obesity Palpation (GI): Soft to palpation, not firm, nontender and No hepatosplenomegaly present Auscultation: normal bowel sounds General: Yes no CVA tenderness Back/Spine/Pelvis Back: no CVA tenderness Skin General skin exam: elasticity normal, turgor normal and dry skin Neuro General: patient oriented x3 Psych Appearance: grossly normal Mental Status: mental status grossly normal Results Reviewed Results Reviewed: ABD CT SCAN WITH RECTAL BARIUM FINDINGS: 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 Anastomotic chain sutures are seen overlying the sacrum within the central pelvis. There are calcifications overlying the left renal shadow inferiorly measuring 1.0 cm in diameter. There is passage of Gastrografin from the rectum to the distal ileum. There is a moderate stricture at the rectosigmoid anastomosis (RF 1-6 106/164; RF 1-4, image 51/124)), however contrast passes through without difficulty. The remainder of the colon is normal in caliber and course. Filling defects in the lumen are consistent with mild to moderate retained stool. No masses or significant diverticula. No additional stricture identified. Contrast refluxes into the appendix. FLUOROSCOPY TIME: 4 minutes 43 seconds DOSE AREA PRODUCT: 1559 uGy-m2 (microgray-meter squared) FL/FL barium enema IMPRESSION: 1. 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 Gastrografin passes from the rectum to the distal ileum. 3. The colon is otherwise normal in course and caliber. 4. Left nephrolithiasis. Assessment & Plan Assessment & Plan (1) Stenosis colon: Comment: August [address] Mohan Code(s): K56.699 - Other intestinal obstruction unspecified as to partial versus complete obstruction Category: Surgical (2) Constipation: Code(s): K59.00 - Constipation, unspecified Category: Medical Qualifiers: Constipation type: chronic idiopathic constipation Qualified Code(s): K59.04 - Chronic idiopathic constipation (3) GERD (gastroesophageal reflux disease): Code(s): K21.9 - Gastro-esophageal reflux disease without esophagitis Category: Medical Qualifiers: Esophagitis presence: esophagitis presence not specified Qualified Code(s): K21.9 - Gastro-esophageal reflux disease without esophagitis (4) IBS (irritable bowel syndrome): Code(s): K58.9 - Irritable bowel syndrome without diarrhea Qualifiers: Irritable bowel syndrome type: without diarrhea Qualified Code(s): K58.9 - Irritable bowel syndrome without diarrhea Plan Moderate stricture of rectosigmoid anastomosis seen. Patient is set up for sigmoidoscopy with Dr. Frank. This might be just scouting sigmoidoscopy as more detailed view will be needed. Patient will keep appointment with me after the procedure anyway. Continue current dose of MiraLax twice a day. Patient reports that she has been moving her bowels better now. Fleet enema day before procedure. Patient was encouraged also to do Sitz baths with Epsom salts and continue to use Proctosol as needed. Patient will call the office if she will have any GI concerning symptoms. She is agreeable to this plan and verbalizes understanding of instructions. She was given the opportunity to ask questions and all questions answered. Thank you for allowing me to participate in her care Medications: Refilled polyethylene glycol 3350 (Miralax) 17 grams PO BID 510 grams 2RF Discontinued sennosides-docusate sodium 8.6-50 mg (Senna Plus) Discontinued Reason: Patient no longer taking 2 tab-caps (2 x 8.6-50 mg) PO BEDTIME 60 tabs 2RF K59.00 - Constipation, unspecified polyethylene glycol 3350 (Miralax) As directed by gastroenterology department at [facility] Discontinued Reason: Doctor's Order 238 grams PO ONCE 238 grams 0RF Z12.11 - Encounter for screening for malignant neoplasm of colon bisacodyl (Dulcolax (bisacodyl)) take 4 tabs at noon the day before your colonoscopy Discontinued Reason: Doctor's Order 20 mg (4 x 5 mg) PO ONCE 1 day 2 tabs 0RF Z12.11 - Encounter for screening for malignant neoplasm of colon Coding Level of Care Code Est Pt Level 4 (96785) Diagnoses Stenosis colon K56.699 Chronic idiopathic constipation K59.04 Constipation type: chronic idiopathic constipation Gastroesophageal reflux disease, unspecified whether esophagitis present K21.9 Esophagitis presence: esophagitis presence not specified Irritable bowel syndrome without diarrhea K58.9 Irritable bowel syndrome type: without diarrhea Time Spent (min) 40 Comment 25 minutes spent with patient and additional 15 minutes spent reviewing her records
== END 2023-07-26 14:05 | disposition home or self-care (01) ==
PROVIDERS: PCP Internal Medicine; Visit Provider Nurse Practitioner Family
DX: K56.699 Other intestinal obstruction unspecified as to partial versus complete obstruction (principal); K59.04 Chronic idiopathic constipation; K21.9 Gastro-esophageal reflux disease without esophagitis; K58.9 Irritable bowel syndrome, unspecified
CPT/HCPCS: 99214

== ENCOUNTER → 2023-07-26 12:45 | Outpatient (BNVA) | payer BC, SELFPAY | PROVIDERS: PCP Internal Medicine; Visit Provider Nurse Practitioner Family ==

== ENCOUNTER 2023-08-05 12:08 | Day surgery (SDC) | payer BC, SELFPAY ==
--- NOTE | 2023-08-03 15:30 | HO.ANESPROP2 ---
Documented by User: Palmira Ronquillo NP 08/03/23 15:30 HPI - Anesthesia Eval Consult details Narrative: 53yo F for Sigmoidoscopy Flexible Anesthesia Pre-Procedure Meds Is the patient on any of the following meds?: GLP1/DPP4 PMFSH Active Problems Active Problems: All Active Problems Stenosis colon (Acute) Thoracic radiculitis (Acute) Muscle pain (Acute) Peripheral vascular disease (Acute) Dysphagia (Acute) Vaping nicotine dependence, non-tobacco product (Acute) Constipation (Acute) Breast cancer screening by mammogram (Acute) Overweight (BMI 25.0-29.9) (Acute) Generalized anxiety disorder (Acute) Annual physical exam (Acute) Diverticulitis (Acute) Type 2 diabetes mellitus with hyperglycemia (Acute) History of renal calculi (Acute) GERD (gastroesophageal reflux disease) (Acute) Insomnia (Acute) Hypertension (Acute) Hypercholesterolemia (Acute) Obesity (BMI 30-39.9) (Acute) Past Medical History Medical History Right hip pain Bilateral hand pain Diabetes mellitus type 2, controlled, without complications COVID-19 virus infection Type 2 diabetes mellitus with hyperglycemia History of renal calculi GERD (gastroesophageal reflux disease) Insomnia Obesity (BMI 30-39.9) Hypertension Hypercholesterolemia Tobacco abuse Family History Family History Father Hypertension Mother Colon cancer Diabetes Sister Diabetes Lymphoma Family/Other Mental health disorder Surgical History Surgical History H/O colonoscopy Hx of abdominal surgery History of kidney surgery History of tubal ligation Diverticulitis Social History Social History Household Members: Spouse and Children Housing: House Alcohol intake: current Patient Tobacco Use Status: Former Tobacco user Tobacco use type: Cigarette Years Smoked: 2004 but vaping e-Cigarette/Vaping Use: Currently Using Second Hand Smoke Exposure: No Advance Directives: No Advance Directives Information Provided: Yes service: No Current occupational status: employed Current occupational exposures/hazards: No Cognitive needs: No Hearing needs: No Vision needs: Yes Meds Allergies Allergy/AdvReac Type Severity Reaction Status Date / Time morphine [MORPHINE] Allergy Severe REDNESS, Verified 08/05/23 12:28 RASH, ITCHING, rash Assessment and Plan Assessment Anesthesia Assessment: Chart Reviewed Documented by User: Jori Lloyd MD 08/05/23 12:42 PMFSH Past Medical History Medical History Right hip pain Bilateral hand pain Diabetes mellitus type 2, controlled, without complications COVID-19 virus infection Type 2 diabetes mellitus with hyperglycemia History of renal calculi GERD (gastroesophageal reflux disease) Insomnia Obesity (BMI 30-39.9) Hypertension Hypercholesterolemia Tobacco abuse Family History Family History Father Hypertension Mother Colon cancer Diabetes Sister Diabetes Lymphoma Family/Other Mental health disorder Family history of problems with anesthesia: No Surgical History Surgical History H/O colonoscopy Hx of abdominal surgery History of kidney surgery History of tubal ligation Diverticulitis History of Problems with Anesthesia: No Social History Social History Household Members: Spouse and Children Housing: House Alcohol intake: current Patient Tobacco Use Status: Former Tobacco user Tobacco use type: Cigarette Years Smoked: 2004 but vaping e-Cigarette/Vaping Use: Currently Using Second Hand Smoke Exposure: No Advance Directives: No Advance Directives Information Provided: Yes service: No Current occupational status: employed Current occupational exposures/hazards: No Cognitive needs: No Hearing needs: No Vision needs: Yes Meds Allergies Allergy/AdvReac Type Severity Reaction Status Date / Time morphine [MORPHINE] Allergy Severe REDNESS, Verified 08/05/23 12:28 RASH, ITCHING, rash Exam Airway Mallampati Class: II TM Dist: >3cm Neck ROM: Full Loose/Missing/Broken Teeth: Yes (2,3 broken) Heart: rrr Lungs: cta Assessment and Plan Assessment Anesthesia Assessment: Anesthesia Plan Discussed Final Anesthetic Review Family History of Problems with Anesthesia: No History of Problems with Anesthesia: No NPO: Yes ASA Class: III Final Preanesthetic Review: No Changes in Pt Med Stat, Meds/Allgs Chart Reviewed, Consent Obtained/Reviewed and Anes Risks/Benef Reviewed Patient Risk: Intermediate Procedure Risk: Intermediate Anesthetic Plan Anesthetic Plan: MAC: Disposition: Standard PACU
[2023-08-04 07:09] VITALS: BMI 32.0
[2023-08-05 12:33] VITALS: BMI 31.1
[2023-08-05 12:42] VITALS: BP 111/78; PULSE 70; RESP 16; TEMP 36.7; O2SAT 99
--- NOTE | 2023-08-05 13:11 | MHC.SHP ---
Pre-Procedural Eval Section A - 24 Hr Update-Section A only Date of Service: 08/05/23 Section B - Complete if H&P > 30 days Chief Complaint: Partial intestinal obstruction, unspecified as to Relevant Family History (Specify if Yes): No Relevant Social History: Other (specify) (vaping) Present Medications: see Short Stay Collaborative assessment Medical History: Significant History ( Right hip pain Bilateral hand pain Diabetes mellitus type 2, controlled, without complications COVID-19 virus infection Type 2 diabetes mellitus with hyperglycemia History of renal calculi GERD (gastroesophageal reflux disease) Insomnia Obesity (BMI 30-39.9) Hypertension Hypercholesterolemia Tobacc) History of Previous Operations: Relevant previous surgery/procedure and date(s) (H/O colonoscopy Hx of abdominal surgery History of kidney surgery History of tubal ligation Diverticulitis) Allergies: Allergies Allergy/AdvReac Type Severity Reaction Status Date / Time morphine [MORPHINE] Allergy Severe REDNESS, Verified 08/05/23 12:28 RASH, ITCHING, rash Review of Systems Sugical H&P ROS: Negative: Constitution, Cardiovascular, Respiratory, Neurological, Psychiatric, Hem-Onc, Allergic/Immunologic, Gastrointestinal, Genitourinary, Musculoskeletal, Integumentary, Endocrine and Eyes/Ears/Nose/Throat Exam Surgical H&P Exam: Normal: HEENT, Normal: Heart, Normal: Lungs, Normal: Extremities, Normal: Abdomen, Normal: Skin and Normal: Neurological Plan Diagnosis/Plan: Unchanged I have reviewed the history and physical and performed a pertinent physical examination on my patient. No changes have occurred unless specified. Time Spent With Patient Time: Total time managing care of this patient today ____ minutes.
[2023-08-05 13:14] LABS: Glucose, Whole Blood 103 mg/dL (60-115)
[2023-08-05] MEDS: Lactated Ringers 1,000 ML 100 ML IVCONT (13:19)
--- NOTE | 2023-08-05 13:35 | W.PM.OPN ---
Operative Note Operative Note Date of Service: 08/05/23 Narrative: Procedure Description: sigmoidoscopy Indication: colonic stricture Anesthesia: MAC Sigmoidoscopy Instrument: pediatric colonoscope Colonoscopy Monitoring: Vital signs and clinical assessment, continuous EKG monitoring, Pulse oximetry, Carbon Dioxide monitoring and blood pressure monitoring were done throughout the procedure. Procedure: The patient was placed in the left lateral decubitis position and pre-procedure medications were administered. After a digital rectal examination of the ano-rectum, the video colonoscope was inserted into the rectum and advanced through the colon to the sigmoid colon The scope was slowly withdrawn in a retrograde panoramic fashion and the colon mucosa was carefully examined . Findings and interventions are described below. Procedure Difficulty: easy Findings: Descending colon: normal Sigmoid Colon: at about 10 cm from anal verge a circumferential stricture was noted at a colono colonic anastomosis- the scope passed easily. This was dilated in step khalil manner from 16 to 18 mm using wire guided balloon with heme noted, the stricture was then injected with 40 mg of Kenalog Rectum: Normal , retroflexion with small internal hemorrhoids Anorectum - normal Colon preparation: fair Impression and Post Procedure Diagnosis: colonic stricture s/p dilation using wire guided balloon and then injected with kenalog Plan: repeat dilation in 3-6 months Above findings were reviewed with the patient and relevant handouts were provided if indicated.
[2023-08-05 13:55] VITALS: BP 103/59; PULSE 72; RESP 16; TEMP 36.1; O2SAT 99
[2023-08-05 14:10] VITALS: BP 102/75; PULSE 66; RESP 18; TEMP 36.6; O2SAT 99
== END 2023-08-05 15:01 | disposition home or self-care (01) ==
PROVIDERS: PCP Internal Medicine; Visit Provider Internal Medicine Gastroenterology
PROC: 0DJD8ZZ Inspection of Lower Intestinal Tract, Via Natural or Artificial Opening Endoscopic (ICD-10-PCS; CPT 45330; principal; 2023-08-05 14:20)
DX: K91.89 Other postprocedural complications and disorders of digestive system (principal); K56.699 Other intestinal obstruction unspecified as to partial versus complete obstruction; Y83.2 Surgical operation with anastomosis, bypass or graft as the cause of abnormal reaction of the patient, or of later complication, without mention of misadventure at the time of the procedure; Y92.9 Unspecified place or not applicable; K64.8 Other hemorrhoids; E11.9 Type 2 diabetes mellitus without complications; I10 Essential (primary) hypertension; Z88.5 Allergy status to narcotic agent
CPT/HCPCS: 45340; 45335; 82947; C1726; J2704; J3301

== ENCOUNTER → 2023-08-05 12:08 | Outpatient (BNV) | payer BC, SELFPAY | PROVIDERS: PCP Internal Medicine; Visit Provider Internal Medicine Gastroenterology | DX: K56.699 Other intestinal obstruction unspecified as to partial versus complete obstruction (principal) | CPT/HCPCS: 45335; 45340 ==

== ENCOUNTER 2024-01-18 11:29 | Outpatient (AMB) | payer BC, SELFPAY ==
[2024-01-18 11:34] VITALS: BP 122/82; PULSE 64; O2SAT 99; BMI 30.2
--- NOTE | 2024-01-18 11:34 | A.OFFVIS_ITS ---
Vital Signs 01/18/24 11:34 Height 5 ft 6 in Weight 186 lb 15.232 oz BMI 30.2 BP 122/82 Blood Pressure Location Rt brachial Position Sitting Pulse 64 Pulse Source Pulse Oximeter Pulse Oximetry (%) 99 Oxygen Delivery Method Room Air Intake Visit Reasons: s/p sigmoid Intake Note: Relevant Flags or Indicators ? Requires Flight Control Manager? N Yoli presents in office today for a scheduled FUV, s/p sigmoid. Check in. CC; Since last visit; labs ordered ? none. Rx ordered ? no. Diagnostics/images ordered ? none. Relevant GI Sx as reported per pt? o?? Constipation ? Early satiety ? Bloating ? Abdominal distention Pt has difficulties with rectal pain related to possible hemorrhoids. Denies any visible bleeding at this time. ? Hx of any recent surgeries? Sigmoidoscopy as of 07/2023. 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 Patient will have sigmoidoscopy with Dr. Frank. This might be just scouting sigmoidoscopy as more detailed view will be needed. Patient will keep appointment with me after the procedure anyway. Continue current dose of MiraLax twice a day. Patient reports that she has been moving her bowels better now. Fleet enema day before procedure. Patient was encouraged also to do Sitz baths with Epsom salts and continue to use Proctosol as needed. Patient will call the office if she will have any GI concerning symptoms. She is agreeable to this plan and verbalizes understanding of instructions. She was given the opportunity to ask questions and all questions answered. ? Thank you for allowing me to participate in her care Medications Refilled polyethylene glycol 3350 (Miralax) 17 grams PO BID 510 grams 2RF Discontinued sennosides-docusate sodium 8.6-50 mg (Senna Plus) Discontinued Reason: Patient no longer taking 2 tab-caps (2 x 8.6-50 mg) PO BEDTIME 60 tabs 2RF K59.00 polyethylene glycol 3350 (Miralax) As directed by gastroenterology department at [facility] Discontinued Reason: Doctor's Order 238 grams PO ONCE 238 grams 0RF Z12.11 bisacodyl (Dulcolax (bisacodyl)) take 4 tabs at noon the day before your colonoscopy Discontinued Reason: Doctor's Order 20 mg (4 x 5 mg) PO ONCE 1 day 2 tabs 0RF Z12.11 SIGMOIDOSCOPY Findings: Descending colon: normal Sigmoid Colon: at about 10 cm from anal verge a circumferential stricture was noted at a colono colonic anastomosis- the scope passed easily. This was dilated in step khalil manner from 16 to 18 mm using wire guided balloon with heme noted, the stricture was then injected with 40 mg of Kenalog Rectum: Normal , retroflexion with small internal hemorrhoids Anorectum - normal Colon preparation: fair Impression and Post Procedure Diagnosis: colonic stricture s/p dilation using wire guided balloon and then injected with kenalog Plan: repeat dilation in 3-6 months TODAY'S VISIT Patient is here today for follow-up and to discuss sigmoidoscopy results. Patient reports that she continues to have trouble moving her bowels. Patient has to take magnesium powder or lactulose in order to have a bowel movement. Patient is taking MiraLax daily, however feels like it is not helping her. Occasional blood when having a bowel movement. Sigmoidoscopy procedure discussed with patient. Dilation from 16 to 18 mm at 10 cm from anal verge performed. Patient reports abdominal bloating if no bowel movement in 3-4 days. Patient denies any nausea or vomiting. Denies any abdominal pain or discomfort. [facility] Medical History Right hip pain Bilateral hand pain Diabetes mellitus type 2, controlled, without complications COVID-19 virus infection Type 2 diabetes mellitus with hyperglycemia History of renal calculi GERD (gastroesophageal reflux disease) Insomnia Obesity (BMI 30-39.9) Hypertension Hypercholesterolemia Tobacco abuse Surgical History H/O colonoscopy Hx of abdominal surgery History of kidney surgery History of tubal ligation Diverticulitis Family History Father Hypertension Mother Colon cancer Diabetes Sister Diabetes Lymphoma Family/Other Mental health disorder Social History Household Members: Spouse and Children Housing: House Alcohol intake: current Patient Tobacco Use Status: Current everyday Tobacco user Tobacco use type: Smokeless Tobacco Years Smoked: 2004 but vaping e-Cigarette/Vaping Use: Currently Using Second Hand Smoke Exposure: No service: No Current occupational status: employed Current occupational exposures/hazards: No Cognitive needs: No Hearing needs: No Vision needs: Yes Review of Systems Const Denies weight gain and Denies weight loss ENT Reports no additional complaints, Denies dysphagia and Denies odynophagia Card Reports no additional complaints Resp Reports no additional complaints GI Denies abdominal pain, Denies belching, Denies melena, Reports bloating, Reports hematochezia (Occasional), Denies change in bowel habits, Reports constipation, Denies dysphagia, Denies excessive flatus, Denies dyspepsia, Denies heartburn, Denies diarrhea, Denies loose stools, Denies nausea, Denies odynophagia and Denies vomiting Reports no additional complaints Musc Reports no additional complaints Neuro Reports no additional complaints Psych Reports no additional complaints Endo Reports no additional complaints Physical Exam Const General: healthy appearing and no acute distress Nutritional Appearance: obese Orientation/consciousness: patient oriented x3 Resp Effort & Inspection: normal respiratory effort, able to speak in complete sentences, no tracheal deviation and symmetric chest movement Auscultation: clear to auscultation bilaterally Cardio Rate: regular rate GI Other: Old surgical scars Inspection: No distended and Yes obesity Palpation (GI): Soft to palpation, not firm, nontender and No hepatosplenomegaly present Auscultation: normal bowel sounds General: Yes no CVA tenderness Back/Spine/Pelvis Back: no CVA tenderness Skin General skin exam: elasticity normal, turgor normal and dry skin Neuro General: patient oriented x3 Psych Appearance: grossly normal Mental Status: mental status grossly normal Assessment & Plan Assessment & Plan (1) Stenosis colon: Code(s): K56.699 - Other intestinal obstruction unspecified as to partial versus complete obstruction Category: Surgical (2) Constipation: Code(s): K59.00 - Constipation, unspecified Category: Medical Qualifiers: Constipation type: chronic idiopathic constipation Qualified Code(s): K59.04 - Chronic idiopathic constipation (3) GERD (gastroesophageal reflux disease): Code(s): K21.9 - Gastro-esophageal reflux disease without esophagitis Category: Medical Qualifiers: Esophagitis presence: esophagitis presence not specified Qualified Code(s): K21.9 - Gastro-esophageal reflux disease without esophagitis Plan Patient will be set up to go for another sigmoidoscopy for sigmoid colon stricture due to anastomosis. Take lactulose daily to help with bowel movements. Patient can also take fiber with probiotic daily. Increase fluid intake and activity to promote better bowel motility. Patient will follow-up after the procedure, sooner on on as needed basis. She is agreeable to this plan and verbalizes understanding of instructions. She was given the opportunity to ask questions and all questions answered. Thank you for allowing me to participate in her care Medications: New bisacodyl (Dulcolax (bisacodyl)) take 4 tabs at noon the day before your colonoscopy 20 mg (4 x 5 mg) PO ONCE 1 day 4 tabs 0RF constipation Z12.11 - Encounter for screening for malignant neoplasm of colon polyethylene glycol 3350 (Miralax) As directed by gastroenterology department at [facility] 238 grams PO ONCE 238 grams 0RF Z12.11 - Encounter for screening for malignant neoplasm of colon Discontinued polyethylene glycol 3350 (Miralax) Discontinued Reason: Doctor's Order 17 grams PO BID 510 grams 2RF Coding Level of Care Code Est Pt Level 3 (42549) Diagnoses Stenosis colon K56.699 Chronic idiopathic constipation K59.04 Constipation type: chronic idiopathic constipation Gastroesophageal reflux disease, unspecified whether esophagitis present K21.9 Esophagitis presence: esophagitis presence not specified Time Spent (min) 30 Comment 20 minutes spent with patient and additional 15 minutes spent reviewing her records
== END 2024-01-18 12:08 | disposition home or self-care (01) ==
PROVIDERS: PCP Internal Medicine; Visit Provider Nurse Practitioner Family
DX: K56.699 Other intestinal obstruction unspecified as to partial versus complete obstruction (principal); K59.04 Chronic idiopathic constipation; K21.9 Gastro-esophageal reflux disease without esophagitis
CPT/HCPCS: 99213

== ENCOUNTER → 2024-01-18 11:29 | Outpatient (BNVA) | payer BC, SELFPAY | PROVIDERS: PCP Internal Medicine; Visit Provider Nurse Practitioner Family ==

== ENCOUNTER 2024-01-21 10:48 | Outpatient (REF) | payer BC, SELFPAY ==
[2024-01-24 18:03] LABS: TS Negative Control Passed; TS Panel A 0; TS Panel B 0; TS Positive Control Passed; TSpotTB Negative (Negative)
== END 2024-01-21 10:49 | disposition home or self-care (01) ==
LOC: HO.LAB 10:48
PROVIDERS: PCP Internal Medicine; Visit Provider Internal Medicine
DX: Z00.00 Encounter for general adult medical examination without abnormal findings (principal)
CPT/HCPCS: 36415; 86481

== ENCOUNTER 2024-02-08 13:43 | Outpatient (AMB) | payer BC, SELFPAY ==
[2024-02-08 13:43] VITALS: BP 114/88; PULSE 78; O2SAT 98; BMI 29.9
--- NOTE | 2024-02-08 13:43 | A.OFFPC_ITS ---
Vital Signs 02/08/24 13:43 Height 5 ft 6 in Weight 185 lb BMI 29.9 BP 114/88 Blood Pressure Location Lt brachial Position Sitting Pulse 78 Pulse Source Pulse Oximeter Pulse Oximetry (%) 98 Oxygen Delivery Method Room Air Intake Visit Reasons: PE Intake Note: Patient is here today for a physical. Music Mixer Required: No Allergies morphine [MORPHINE] Allergy (Severe, Verified 02/08/24 14:04) REDNESS, RASH, ITCHING, rash Medication List - Last Reconciled 02/08/24 by Magdalene William PA-C alprazolam 0.25 mg PO BEDTIME 90 days bisacodyl (Dulcolax (bisacodyl)) 20 mg (4 x 5 mg) PO ONCE 1 day blood sugar diagnostic (FreeStyle Lite Strips) 1 strip miscellaneous DAILY 90 days compress.stocking,knee,reg,med As directed 20-30 mm HG hydrochlorothiazide 12.5 mg PO DAILY hydrocortisone 2.5% (Proctosol HC) 1 appl MD BID-QID PRN lisinopril 5 mg PO DAILY nicotine 1 patch transdermal DAILY omeprazole 20 mg PO DAILY polyethylene glycol 3350 (Miralax) 238 grams PO ONCE semaglutide (Ozempic) 0.5 mg (0.736 mL) subcut QWEEK 30 days simvastatin 10 mg PO BEDTIME zolpidem 5 mg PO BEDTIME 90 days Tobacco use date assessed: 06/16/23 Dental Screening Dental Screen Date: 02/08/24 Did you have a dental visit in the last 12 months?: Yes Did you have a dental problem in the last 6 months where you did not have access to dental care?: No Was dental information given to patient?: Patient has dentist HPI PE HPI Details [age] old female with diabetes mellitus, hypertension, hypercholesterolemia, generalized anxiety disorder, GERD last seen by Dr. Oliva coming in for annual exam. In review of the notes, patient was seen [place] [facility] [place] [facility] [place] advised repeat sigmoidoscopy, lactulose daily and increase fluid intake. Patient states she is feeling generally well. She does have a concern of a rash on her eyelids that has been present for several months. She also mentions last month she did have vaginal bleeding and does not had her menses in several years. She also mentions several months ago having a choking episode in the middle of the night while sleeping and does have a history of snoring as well. [facility] Medical History Right hip pain Bilateral hand pain Diabetes mellitus type 2, controlled, without complications COVID-19 virus infection Type 2 diabetes mellitus with hyperglycemia History of renal calculi GERD (gastroesophageal reflux disease) Insomnia Obesity (BMI 30-39.9) Hypertension Hypercholesterolemia Tobacco abuse Surgical History H/O colonoscopy Hx of abdominal surgery History of kidney surgery History of tubal ligation Diverticulitis Family History Father Hypertension Mother Colon cancer Diabetes Sister Diabetes Lymphoma Family/Other Mental health disorder Social History Household Members: Spouse and Children Housing: House Alcohol intake: current Patient Tobacco Use Status: Current everyday Tobacco user Tobacco use type: Smokeless Tobacco Years Smoked: 2004 but vaping e-Cigarette/Vaping Use: Currently Using Second Hand Smoke Exposure: No service: No Current occupational status: employed Current occupational exposures/hazards: No Cognitive needs: No Hearing needs: No Vision needs: Yes Questionnaire PHQ-9 Over the last 2 weeks, how often have you been bothered by any of the following problems? 1. Little interest or pleasure in doing things: not at all 2. Feeling down, depressed, or hopeless: not at all 3. Trouble falling or staying asleep, or sleeping too much: not at all 4. Feeling tired or having little energy: not at all 5. Poor appetite or overeating: not at all 6. Feeling bad about yourself - or that you are a failure or have let yourself or your family down: not at all 7. Trouble concentrating on things, such as reading the newspaper or watching television: not at all 8. Moving or speaking so slowly that other people could have noticed. Or the opposite - being so fidgety or restless that you have been moving around a lot more than usual: not at all 9. Thoughts that you would be better off or of hurting yourself in some way: not at all Total score: 0 Depression Screening Interpretation: Negative Depression Screening Done: Yes 29546 - PHQ-9 Billing: Yes Source: Developed by Drs. Shorty Chin, Zachary Lou and colleagues, with an educational greg from [employer]. Thrive Questionnaire Date Thrive assessed: 06/16/23 I am a: Patient What is your living situation today?: I have a steady place to live Within the past 12 months, did the food you bought not last and you didn't have the money to get more?: Never true Within the past 12 months, did you worry whether your food would run out before you got money to buy more?: Never true Do you have trouble paying for medicines?: No Do you have trouble getting transportation to medical appointments?: No Do you have trouble paying your heating and electricity bill?: No Do you have trouble taking care of your child, family member or friend?: No Do you have trouble with day-to-day activities such as bathing, preparing meals, shopping, managing finances, etc.?: No Are you currently unemployed and looking for a job?: No Are you interested in more education?: No Please select the resources that you would like help with: None Currently or been in a relationship where the following occur: No concerns reported THRIVE Score: 0 AUDIT C Alcohol Use Questionnaire (AUDIT-C) 1. How often do you have a drink containing alcohol?: Never 3. How often do you have six or more drinks on one occasion?: Never Total Score: 0 VICTORIA-7 AMB Questionnaire VICTORIA-7 Date VICTORIA - 7 assessed: 02/08/24 Feeling nervous, anxious, or on edge: 3 = Nearly every day Not being able to stop or control worryin = Nearly every day Worrying too much about different things: 1 = Several days Trouble relaxin = Several days Being so restless that it is hard to sit still: 1 = Several days Becoming easily annoyed or irritable: 1 = Several days Feeling afraid as if something awful might happen: 1 = Several days Total VICTORIA-7 score (0-4 normal; 5-9 mild; 10-14 moderate; 15-21 severe): 11 Source: Developed by Carmen Joyner Kurt Kroenke and colleagues, with an educational greg from [employer]. VICTORIA-7 Assessment Billing VICTORIA-7 Assessment Tool: VICTORIA-7 Assessment 52195 Review of Systems Const Denies body aches, Reports fatigue, Denies fever(s), Denies frequent falls, Denies headache(s), Reports snoring, Reports stops breathing during sleep and Denies weakness Eyes Reports no additional complaints and Denies change in vision ENT Denies dysphagia, Denies dizziness, Denies facial pain, Denies headache(s), Denies nasal congestion and Denies odynophagia Card Denies chest pain, Denies syncope, Denies irregular heart rhythm, Denies leg edema, Denies lightheadedness and Denies dyspnea Resp Denies cough, Denies dyspnea and Reports snoring GI Denies abdominal pain, Reports constipation, Denies dysphagia, Denies dyspepsia, Denies diarrhea, Denies nausea, Denies odynophagia and Denies vomiting Denies urinary frequency, Denies dysuria, Denies urinary hesitancy and Denies urinary urgency Musc Denies back pain and Denies myalgias Skin/Breast Reports system reviewed and no additional complaints, except as documented Neuro Denies dizziness, Denies syncope, Denies frequent falls, Denies headache(s) and Denies weakness Psych Reports no additional complaints and Reports anxiety Endo Reports fatigue Physical exam (Primary Care) Vital Signs: Last Vital Signs Pulse 78 02/08/24 13:43 BP 114/88 02/08/24 13:43 Pulse Ox 98 02/08/24 13:43 Oxygen Delivery Method Room Air 02/08/24 13:43 BMI result Body Mass Index 29.9 Tobacco/Smoking Status: Tobacco use Status Tobacco use date assessed 06/16/23 02/08/24 13:45 Patient Tobacco Use Status Current everyday Tobacco 02/08/24 13:45 Tobacco use type Smokeless Tobacco 02/08/24 13:45 e-Cigarette/Vaping Use Currently Using 02/08/24 13:45 Tobacco cessation counseling provided: Yes Items discussed: Nicotine replacement Relapse Prevention: weight gain after smoking is common and discussed dietary, exercise and/or lifestyle changes Number of minutes spent counselin CPT code: 02932 - 4-10 Minutes PHQ-9: PHQ-9 Score PHQ-9: Total score 0 02/08/24 14:12 Depression Screening Interpretation: Negative Thrive Assessment: Date of Thrive Assessment Date Thrive assessed 06/16/23 02/08/24 13:45 Currently or been in a relationship where the following occur: No concerns reported Const General: cooperative, healthy appearing, comfortable and no acute distress Orientation/consciousness: patient oriented x3 HENMT Head: Yes normocephalic Ears: hearing grossly normal bilaterally, external ears normal, TM's normal bilaterally and EAC's normal General nose exam: Normal external nose present Face and sinus: Yes normal facial exam and Yes sinuses nontender Mouth: Normal oral and palatal mucosa present and tongue normal Throat: Yes posterior oropharynx normal Eyes General: appearance normal, both eyes and all related structures Conjunctivae: conjunctivae normal Pupils: Equal, round and reactive pupils present EOM: EOMs intact bilaterally and No Nystagmus present Neck Neck: Yes normal visual inspection, Yes full ROM and Yes no lymphadenopathy Chest Chest palpation & inspection: normal inspection of the chest Resp Effort & Inspection: normal respiratory effort Auscultation: clear to auscultation bilaterally, no crackles, no rales, no rhonchi, no wheezes and breath sounds present Cardio Rate: regular rate Rhythm: regular rhythm Peripheral pulses: radial pulses present and dorsalis pedis present GI Inspection: Yes normal to inspection and No Abdominal wall edema Palpation (GI): Soft to palpation, not firm and nontender Auscultation: normal bowel sounds Rectal Exam - Female: deferred General: Yes no CVA tenderness Back/Spine/Pelvis Back: no CVA tenderness Skin Other: Area of dry, red and flaky skin on bilateral eyelids no eye involvement Neuro General: patient oriented x3 Cranial nerves: Yes Equal, round and reactive pupils present, Yes Midline tongue present, Yes Ability to bilaterally elevate shoulders present and No Nystagmus present Gait exam (Neuro): Normal gait present Extrem General: Yes normal to inspection, Yes full ROM, No no pedal edema and No edema Psych Speech and movement: Normal speech and movement present Affect: normal affect Insight: Good insight present (Psych) Judgement: Good judgement present (Psych) Results AMB Hemoglobin A1c AMB Hemoglobin A1c 5.9 % Last Edit by JHONNY Velasquez on 02/08/24 14:11 Results Reviewed Results Reviewed: Laboratory Last Values Hgb A1c (Clinic) 5.9 % (4.0-6.0) 11/12/24 09:52 Coding Level of Care Code Est Pt Prev Care 40-64y(36312) Diagnoses Peripheral vascular disease I73.9 Overweight (BMI 25.0-29.9) E66.3 Generalized anxiety disorder F41.1 Annual physical exam Z00.00 Type 2 diabetes mellitus with hyperglycemia, without long-term current use of insulin E11.65 Diabetes mellitus halfway insulin use: without boiler fireman use Gastroesophageal reflux disease, unspecified whether esophagitis present K21.9 Esophagitis presence: esophagitis presence not specified Insomnia G47.00 Essential hypertension I10 Hypertension type: essential hypertension Hypercholesterolemia E78.00 Hypersomnolence G47.10 Eczema L30.9 Abnormal uterine and vaginal bleeding, unspecified N93.9 Additional Codes VICTORIA-7 Assessment Billing - VICTORIA-7 Assessment Tool: VICTORIA-7 Assessment 95884 ([id number]) PHQ-9 - 19194 - PHQ-9 Billing: Yes ([id number]) Vital Signs *Quality* - CPT code: 89944 - 4-10 Minutes ([id number]) Assessment & Plan Assessment & Plan (1) Peripheral vascular disease: Code(s): I73.9 - Peripheral vascular disease, unspecified Category: Medical Plan: Advised good control of blood pressure, cholesterol and blood sugars. (2) Overweight (BMI 25.0-29.9): Code(s): E66.3 - Overweight Category: Medical Plan: Healthy diet and regular exercise is encouraged. (3) Generalized anxiety disorder: Comment: Declined counseling June 2019 Code(s): F41.1 - Generalized anxiety disorder Category: Medical Plan: Referral placed to outpatient psych clinic for management of anxiety. Declines counselor at this time. (4) Annual physical exam: Code(s): Z00.00 - Encounter for general adult medical examination without abnormal findings Category: Medical Plan: Patient is up-to-date on all recommended routine screenings and vaccinations for her age. Reminded patient about blood work. (5) Type 2 diabetes mellitus with hyperglycemia: Comment: [facility] Code(s): E11.65 - Type 2 diabetes mellitus with hyperglycemia Category: Medical Qualifiers: Diabetes mellitus boiler fireman insulin use: without halfway use Qualified Code(s): E11.65 - Type 2 diabetes mellitus with hyperglycemia Plan: Decrease the amount of carbohydrates such as pasta, bread, rice, and potatoes and limit the amount of sweets. Although fruits are generally healthy they should be eaten in moderation as they are still high in sugar. Hemoglobin A1c goal of less than 7%. (6) GERD (gastroesophageal reflux disease): Code(s): K21.9 - Gastro-esophageal reflux disease without esophagitis Category: Medical Qualifiers: Esophagitis presence: esophagitis presence not specified Qualified Code(s): K21.9 - Gastro-esophageal reflux disease without esophagitis Plan: Avoid trigger foods such as citrus, tomato products, soda, caffeine, spicy foods and other foods that may be irritating to your stomach. Avoid laying flat 3-4 hours after eating and elevate the head of the bed 30 degrees to prevent acid from moving into the esophagus. (7) Insomnia: Code(s): G47.00 - Insomnia, unspecified Category: Medical Plan: Continue on current medication. (8) Hypertension: Code(s): I10 - Essential (primary) hypertension Category: Medical Qualifiers: Hypertension type: essential hypertension Qualified Code(s): I10 - Essential (primary) hypertension Plan: Continue on current blood pressure medication. Avoid salt intake and encourage h ealthy diet and regular exercise. (9) Hypercholesterolemia: Code(s): E78.00 - Pure hypercholesterolemia, unspecified Category: Medical Plan: Avoid foods that are high in cholesterol such as red meat, fried foods, eggs and baked goods. Triglyceride goal of less than 150 and LDL goal of less than 100. Reminded patient of blood work (10) Hypersomnolence: Code(s): G47.10 - Hypersomnia, unspecified Category: Medical Plan: Patient complaining of excessive fatigue, snoring and occasional choking episodes at night. Ordered for home sleep study. (11) Eczema: Code(s): L30.9 - Dermatitis, unspecified Category: Medical Plan: We will trial low-dose steroid. Advised patient not to use this medication for longer than 2 weeks and avoid contact with the eyes. (12) Abnormal uterine and vaginal bleeding, unspecified: Code(s): N93.9 - Abnormal uterine and vaginal bleeding, unspecified Category: Medical Plan: Referral placed for gynecology for further workup. Plan This note was constructed using voice recognition software. While every effort has been made to ensure accuracy and barrel builder, still areas may have been included sometimes these areas may affect the content or meeting of the given symptoms. Total time spent caring for the patient today was 30 minutes. This includes time spent before the visit reviewing the chart, time spent during the visit, and time spent after the visit and documentation. Orders: Orders MM tomosynthesis screening BI 02/08/24 Z12.31 - Encounter for screening mammogram for malignant neoplasm of breast Referrals [facility] Referral N93.9 - Abnormal uterine and vaginal bleeding, unspecified Psychiatry Outpatient Consultation Service F41.1 - Generalized anxiety disorder Medications: New alclometasone 0.05% apply to eyelid once daily. avoid contact with the eye. 1 appl topical BID 15 grams 0RF alclometasone 0.05% apply to eyelid twice daily. avoid contact with the eye. 1 appl topical BID 15 grams 0RF
== END 2024-02-08 14:36 | disposition home or self-care (01) ==
PROVIDERS: PCP Internal Medicine
DX: I73.9 Peripheral vascular disease, unspecified (principal); E66.3 Overweight; F41.1 Generalized anxiety disorder; Z00.00 Encounter for general adult medical examination without abnormal findings; E11.65 Type 2 diabetes mellitus with hyperglycemia; K21.9 Gastro-esophageal reflux disease without esophagitis; G47.00 Insomnia, unspecified; I10 Essential (primary) hypertension; E78.00 Pure hypercholesterolemia, unspecified; G47.10 Hypersomnia, unspecified; L30.9 Dermatitis, unspecified; N93.9 Abnormal uterine and vaginal bleeding, unspecified

== ENCOUNTER → 2024-02-08 13:43 | Outpatient (BNVA) | payer BC, SELFPAY | PROVIDERS: PCP Internal Medicine | DX: Z00.00 Encounter for general adult medical examination without abnormal findings (principal); I73.9 Peripheral vascular disease, unspecified; E66.3 Overweight; F41.1 Generalized anxiety disorder; E11.65 Type 2 diabetes mellitus with hyperglycemia; K21.9 Gastro-esophageal reflux disease without esophagitis; G47.00 Insomnia, unspecified; I10 Essential (primary) hypertension; E78.00 Pure hypercholesterolemia, unspecified; G47.10 Hypersomnia, unspecified; L30.9 Dermatitis, unspecified; N93.9 Abnormal uterine and vaginal bleeding, unspecified | CPT/HCPCS: 83036; 96127 ==

== ENCOUNTER 2024-04-03 12:36 | Outpatient (REF) | payer BC, SELFPAY ==
--- NOTE | ~2024-04-03 | MM_ITS ---
EXAMINATION: MM SCREENING DIGITAL BREAST TOMOSYNTHESIS, BILATERAL CLINICAL INFORMATION: Screening. Asymptomatic. COMPARISON: Mammography: Comparison is made with available priors TECHNIQUE: Digital breast mammography with tomosynthesis is performed in both the craniocaudal and mediolateral oblique views along with computer-aided detection (CAD). FINDINGS: The breasts are heterogeneously dense, which may obscure small masses (ACR BI-RADS breast composition Category c). There are no significant masses, abnormal calcifications, or other abnormalities. MM/MM tomosynthesis screening BI IMPRESSION: No mammographic evidence of malignancy. ASSESSMENT: BI-RADS BI-RADS 1 - Negative RECOMMENDATION: Routine annual mammography screening. 1 year F/U This examination should not preclude the clinical evaluation of a suspicious palpable abnormality. This patient's information was entered into a reminder system with a target due date for their next mammogram. Electronically signed by: Lala Mathew DO 04/10/2024 11:59 AM BRIAN
== END 2024-04-03 12:37 | disposition home or self-care (01) ==
LOC: HO.MAMMO 12:36
PROVIDERS: PCP Internal Medicine
DX: Z12.31 Encounter for screening mammogram for malignant neoplasm of breast (principal)
CPT/HCPCS: 77063; 77067

== ENCOUNTER → 2024-04-03 12:45 | Outpatient (BNV) | payer BC, SELFPAY | PROVIDERS: PCP Internal Medicine; Visit Provider Internal Medicine | DX: Z12.31 Encounter for screening mammogram for malignant neoplasm of breast (principal) | CPT/HCPCS: 77063; 77067 ==

== ENCOUNTER → 2024-05-04 15:21 | Outpatient (BNVA) | payer BC, SELFPAY | PROVIDERS: PCP Internal Medicine; Visit Provider Clinical Nurse Specialist Psychiatric/Mental Health | DX: F41.1 Generalized anxiety disorder (principal); F41.0 Panic disorder [episodic paroxysmal anxiety]; R45.1 Restlessness and agitation; Z71.89 Other specified counseling | CPT/HCPCS: 90792 ==

== ENCOUNTER 2024-05-10 13:12 | Outpatient (AMB) | payer BC, SELFPAY ==
[2024-05-10 14:03] VITALS: BP 122/80; PULSE 74; TEMP 36.7; O2SAT 98
--- NOTE | 2024-05-10 14:03 | MHC.OFFWIV ---
Intake Vital Signs 05/10/24 14:03 Weight 180 lb BP 122/80 Blood Pressure Location Rt brachial Pulse 74 Pulse Source Pulse Oximeter Temp 98.0 F Temp Source Oral Pulse Oximetry (%) 98 Oxygen Delivery Method Room Air Intake Visit Reasons: EP chills, pain on middle back Intake Note: Patient here for chills and pain in middle of back. and would like to get tested Patient Tobacco Use Status: Current everyday Tobacco user Allergies morphine [MORPHINE] Allergy (Severe, Verified 05/10/24 14:09) REDNESS, RASH, ITCHING, rash Do you need a note to return to daycare/school/sports/work: No HPI HPI Comments History of Present Illness Details History - The patient is a 54-year-old female presenting with an episode of chills yesterday and back pain prior to surgery. - Recent chills and mid-back pain episode occurred overnight and subsided before the visit. - No fever or respiratory symptoms were reported. - History of gastrointestinal surgeries for a colon issue, previously corrected twice, with another attempt scheduled to alleviate bowel obstruction tomorrow morning, with colon prep to be done tonight at home. - Patient vapes with a history of approximately four to five years of use, expressing difficulty in cessation. - No asthma or COPD history reported. Physical Exam General: Cooperative, healthy appearing, comfortable and no acute distress Orientation/consciousness: Patient oriented x3 Limitations: No limitations Head: Normal to inspection Ears: Hearing grossly normal bilaterally, external ears normal and TM's normal bilaterally Nose: Normal external nose present, Normal nares present and No nasal discharge present Face and sinus: Normal facial exam and Yes sinuses nontender Mouth: Normal oral and palatal mucosa present and moist mucous membranes Throat: Yes tonsils normal, Yes uvula midline. Posterior oropharynx erythema Eyes: Appearance normal, both eyes and all related structures Neck: Normal visual inspection Respiratory: Clear to auscultation bilaterally. Normal respiratory effort, able to speak in complete sentences, No cough, no respiratory distress, not tachypneic, no tripod positioning and no use of accessory muscles Cardiovascular: Regular rate and rhythm. Normal S1 and S2 Skin: No rashes or lesions noted Neuro: Patient oriented x3 Extremities: Normal to inspection and Yes no clubbing, cyanosis or edema [facility] Medical History (Updated 05/10/24 @ 14:34 by Mandi Ryder PA-C) Right hip pain Bilateral hand pain Diabetes mellitus type 2, controlled, without complications Type 2 diabetes mellitus with hyperglycemia History of renal calculi GERD (gastroesophageal reflux disease) Insomnia Obesity (BMI 30-39.9) Hypertension Hypercholesterolemia Tobacco abuse Surgical History H/O colonoscopy Hx of abdominal surgery History of kidney surgery History of tubal ligation Diverticulitis Family History Father Hypertension Mother Colon cancer Diabetes Sister Diabetes Lymphoma Family/Other Mental health disorder Social History Household Members: Spouse and Children Housing: House Alcohol intake: current Patient Tobacco Use Status: Current everyday Tobacco user Tobacco use type: Smokeless Tobacco Years Smoked: 2004 but vaping e-Cigarette/Vaping Use: Currently Using Second Hand Smoke Exposure: No service: No Current occupational status: employed Current occupational exposures/hazards: No Cognitive needs: No Hearing needs: No Vision needs: Yes Review of Systems Const All systems reviewed & are unremarkable except as noted in HPI and below Physical Exam Vital Signs: Last Vital Signs Temp 98.0 F 05/10/24 14:03 Pulse 74 05/10/24 14:03 BP 122/80 05/10/24 14:03 Pulse Ox 98 05/10/24 14:03 Oxygen Delivery Method Room Air 05/10/24 14:03 Assessment & Plan Assessment & Plan (1) URI, acute: Code(s): J06.9 - Acute upper respiratory infection, unspecified Plan: VSS, pt well appearing and PE unremarkable. Sent, Flu, Covid and RSV testing. Set up pt's portal with her so she could see her results [place] and will know whether she should start her colon prep for her surgery. LM with pre-op testing to advise. The recent episode of chills and back pain, occurring in the context of the patient's upcoming gastrointestinal surgery, appears less likely to be related to an infectious process given the absence of fever or respiratory symptoms. Further investigation into the patient's symptoms may be required if they recur or worsen prior to her procedure. It is crucial to proceed with readiness for the planned GI procedure, which aims to address a constricted colon causing bowel function issues. The patient should continue to follow the required preoperative instructions and complete necessary tests for surgical preparation, unless she tests positive for Covid, Flu or RSV. Additionally, addressing the patient's nicotine addiction through vaping with proper cessation strategies is recommended as part of her postoperative health management. Patient was informed and verbally consented to the use of an ambient scribe for clinic note documentation during this visit Orders: Orders SARS-CoV2/FLU/RSV Today R09.89 - Other specified symptoms and signs involving the circulatory and respiratory systems Coding Level of Care Code Est Pt Level 4 (82278) Diagnoses URI, acute J06.9
--- OUTSIDE RECORDS SUMMARY | 2024-05-10 14:33 | XMS_ITS | Clinical Summary ---
Author Organization [employer] [facility] Address [address] [place] [address] Care Team Providers Care Telecom Engineer Name Role Phone Jamal Oliva MD Primary Care Provider [phone] Surgical History Surgery Date Site/Laterality Comments TUBAL LIGATION PROCEDURE: HISTORICAL TUBAL LIGATION OTHER SURGICAL HISTORY PROCEDURE: [place] COLONOSCOPY FLX W/ENDOSCOPIC MUCOSAL RESECTION COLONOSCOPY 11/20/2020 PROCEDURE: HISTORICAL COLONOSCOPY; COMMENT: anastomotic stricture and tiny polyp Medical History Medical History Date Comments Diverticulosis DX:Diverticulosi s Seasonal allergies DX:Seasonal a llergies Hypertension DX:Hypertension Anxiety DX:Anxiety Hypercholesteremia DX:Hyperchole steremia Tobacco use DX:Tobacco use; COMMENT: former smoker- stopped 3 yrs ago Diverticulitis 09/05/2019 DX:Diverticuliti s; COMMENT: 2018 Kidney stone 09/05/2019 DX:Kidney stone; COMMENT: left Abnormal large bowel motility DX :Abnormal large bowel motility Straining with stools DX:Straini ng with stools Abdominal cramping DX:Abdominal cramping Family history of colon cancer in mother DX:Family history of colon cancer in mother Rectal bleeding DX:Rectal bleedi ng Abdominal pain DX:Abdominal regan n Constipation DX:Constipation Pain with bowel movements DX:Regan n with bowel movements Constipation DX:Constipation Family History Medical History Relation Name Comments No Known Problems Brother pt has 9 b rothers Hypertension Father Colon cancer Mother age 50, di abetes No Known Problems Sister pt has 4 s isters Relation Name Status Comments Brother Alive Father Alive Mother Sister Alive Social History Tobacco Use Types Packs/Day Years Used Date Smoking Tobacco: Former Smokeless Tobacco: Never Alcohol Use Standard Drinks/Week Comments No 0 (1 standard drink = 0.6 oz pur e alcohol) Comments Unknown Sex and Gender Information Value Date Recorded Sex Assigned at Not on file Legal Sex Female 8:45 PM EST Gender Identity Not on file Sexual Orientation Not on file Obstetrics History Last Filed Vital Signs Vital Sign Reading Time Taken Comments Blood Pressure 110/72 06/29/2022 8:41 AM EDT Pulse 45 06/29/2022 8:41 AM EDT Temperature - - Respiratory Rate - - Oxygen Saturation - - Inhaled Oxygen Concentration - - Weight 83 kg (183 lb) 06/29/2022 8:41 AM EDT Height 168.9 cm (5' 6.5 ) 06/29/2022 8:41 AM EDT Body Mass Index 29.09 06/29/2022 8:41 AM EDT Plan of Treatment Health Maintenance Due Date Last Done Comments Breast Cancer Screening 1971 DTaP,Tdap,and Td Vaccines (1 - Tdap) 1990 Hepatitis B Vaccines (1 of 3 - 19+ 3-dose series) 1990 Cervical Cancer Screening: P ap Smear 01/25/1992 Zoster Vaccines (1 of 2) 2021 Cholesterol Screening (Lipid Panel) 02/28/2022 Colorectal Cancer Screening: Colonoscopy 02/28/2022 Depression Screening 02/28/2022 HIV Screening 02/28/2022 Hepatitis C Screening 02/28/2022 Social Influencers of Health Screening 02/28/2022 Hypertension/CHF/CAD Annual BMP Blood Test 03/14/2022 COVID-19 Vaccine ( - 2023-2 5 season) 2023 Influenza Vaccine (#1) 2023 HIB Vaccines Aged Out No longer eligi ble based on patient's age to complete this topic HPV Vaccines Aged Out No longer eligi ble based on patient's age to complete this topic Hepatitis A Vaccines Aged Out No long er eligible based on patient's age to complete this topic IPV Vaccines Aged Out No longer eligi ble based on patient's age to complete this topic MMR Vaccines Aged Out No longer eligi ble based on patient's age to complete this topic Meningococcal ACWY Vaccine Aged Out N o longer eligible based on patient's age to complete this topic Pneumococcal Vaccine: Pediat rics (0 to 5 Years) and At-Risk Patients (6 to 64 Years) Aged Out No longer eligible b ased on patient's age to complete this topic RSV Immunization Patients Un iva 20 months Aged Out No longer eligible b ased on patient's age to complete this topic Varicella Vaccines Aged Out No longer eligible based on patient's age to complete this topic Care Teams Telecom Engineer Relationship Specialty Start Date End Date Jamal Oliva MD [address] [place] [address] [address] [facility] [place] [address] PCP - General Internal Medicine 03/01/19
== END 2024-05-10 14:52 | disposition home or self-care (01) ==
PROVIDERS: PCP Internal Medicine; Visit Provider Physician Assistant
DX: J06.9 Acute upper respiratory infection, unspecified (principal)

== ENCOUNTER 2024-05-10 14:15 | Outpatient (REF) | payer BC, SELFPAY ==
--- OUTSIDE RECORDS SUMMARY | 2024-05-10 15:35 | XMS_ITS | Clinical Summary ---
Author Organization [email or web address] [facility] Address [address] [place] [address] Care Team Providers Care Supervisor Transcribing Operators Name Role Phone Jamal Oliva MD Primary Care Provider [phone] Surgical History Surgery Date Site/Laterality Comments TUBAL LIGATION PROCEDURE: HISTORICAL TUBAL LIGATION OTHER SURGICAL HISTORY PROCEDURE: [place] COLONOSCOPY FLX W/ENDOSCOPIC MUCOSAL RESECTION COLONOSCOPY 11/20/2020 [...] age to complete this topic Care Teams Supervisor Transcribing Operators Relationship Specialty Start Date End Date Jamal Oliva MD [address] [place] [address] [address] [facility] [place] [id number] PCP - General Internal Medicine 03/01/19
[2024-05-10 18:00] LABS: Influenza A PCR NEGATIVE (Negative); Influenza B PCR NEGATIVE (Negative); Resp Syncy Virus RNA Qual PCR NEGATIVE (Negative); SARS COV2 PCR INHOUSE POSITIVE (Negative)
== END 2024-05-10 14:16 | disposition home or self-care (01) ==
LOC: HO.LNP 14:15
PROVIDERS: Visit Provider Physician Assistant
DX: R09.89 Other specified symptoms and signs involving the circulatory and respiratory systems (principal); J06.9 Acute upper respiratory infection, unspecified
CPT/HCPCS: 0241U

== ENCOUNTER 2024-08-14 12:28 | Outpatient (REF) | payer OTHER, SELFPAY ==
--- OUTSIDE RECORDS SUMMARY | 2024-08-14 13:12 | XMS_ITS | Encounter Summary ---
Author Organization [facility] Address [address] [place] [address] Care Team Providers Care Hydraulic Press Tender Name Role Phone Jamal Oliva MD Primary Care Provider Unavailabl e Reason for Visit * Reason Onset Date Comments Medication 11/14/2020 Encounter Details Date Type Department Care Team Description 11/14/2020 Refill Gastroenterology - [address] [place] [phone] Yael Boo MD Medication Social History Tobacco Use Types Packs/Day Years Used Date Smoking Tobacco: Former Smokeless Tobacco: Never Alcohol Use Standard Drinks/Week Comments No 0 (1 standard drink = 0.6 oz pur e alcohol) Alcohol Habits Answer Date Recorded How often do you have a drink containing alcohol ? Never 03/16/2019 How many drinks containing a lcohol do you have on a typical day when you are drinking? Not asked How often do you have six or more drinks on one occasion? Not asked Sex Assigned at Date Recorded Not on file COVID-19 Exposure Response Date Recorded In the last month, have you been in contact with someone who was confirmed or suspected to have Coronavirus / COVID-19? No / Unsure 10/21/2020 8:52 AM EDT documented as of this encounter Plan of Treatment Not on file documented as of this encounter Visit Diagnoses Not on filedocumented in this encounter Care Teams Hydraulic Press Tender Relationship Specialty Start Date End Date Jamal Oliva MD PCP - General Internal Medicine 03/01/19 documented as of this encounter
--- OUTSIDE RECORDS SUMMARY | 2024-08-14 13:12 | XMS_ITS | Encounter Summary ---
Author Organization [facility] Address [address] [place] [address] Care Team Providers Care Straightening Machine Feeder Name Role Phone Jamal Oliva MD Primary Care Provider Unavailabl e Encounter Details Date Type Department Care Team Description 11/25/2020 Orders Only Medical Records [address] [place] [address] Yael Boo MD Social History Tobacco Use Types Packs/Day Years [...] Assigned at Date Recorded Not on file documented as of this encounter Progress Notes * Yael Boo MD - 11/25/2020 7:17 PM EDT Recommend repeat colonoscopy in 5 years. Letter sent to patient. documented in this encounter Plan of Treatment Not on file documented as of this encounter Procedures Procedure Name Priority Date/Time Associated Diagnosis Comments OUTSIDE PATHOLOGY Routine 11/20/2020 documented in this encounter Results * OUTSIDE PATHOLOGY (11/20/2020) Yael Boo MD OUTSIDE LAB documented in this encounter Visit Diagnoses Not on filedocumented in this encounter Care Teams Straightening Machine Feeder Relationship Specialty Start Date End Date Jamal Oliva MD PCP - General Internal Medicine 03/01/19 documented as of this encounter
--- OUTSIDE RECORDS SUMMARY | 2024-08-14 13:12 | XMS_ITS | Encounter Summary ---
Author Organization [facility] Address [address] [place] [address] Care Team Providers Care Bistro Server Name Role Phone Jamal Oliva MD Primary Care Provider Unavailabl e Reason for Visit * Reason Onset Date Comments Provider Call Back 10/02/2020 Encounter Details Date Type Department Care Team Description 10/02/2020 Telephone Gastroenterology - [place] [address] [address] Rakan Tse PA-C [address] [address] Provider Call Back Social History Tobacco Use Types Packs/Day Years [...] have Coronavirus / COVID-19? No / Unsure 10/03/2020 1:49 PM EDT documented as of this encounter Miscellaneous Notes * Telephone Encounter - Rakan Tse PA-C - 10/21/2020 8:48 AM EDT Dropped off stool studies to the lab and will put orders in for fecal occult study. * Telephone Encounter - Zeny Méndez - 10/03/2020 8:46 AM EDT I have left the fecal stool study test kit in pt picker machine operator at the front office assistant. * Telephone Encounter - Rakan Tse PA-C - 10/02/2020 2:42 PM EDT Patient is having mucus as well as dark brown appearing blood with her stool. Patient is to performlabs as well as fecal occult studies and depending on those results, a colonoscopy may be needed. Lab orders and fecal stool orders entered * Telephone Encounter - Zeny Méndez - 10/02/2020 2:29 PM EDT Spoke to the patient and she would like the labs and stool study order sent. Thanks. * Telephone Encounter - Zeny Méndez - 10/02/2020 11:10 AM EDT Left 2 voicemails for the patient. One on each phone number on file. Waiting for a call back. * Telephone Encounter - Rakan Tse PA-C - 10/02/2020 10:54 AM EDT Not quite sure about seeing brown blood as if there is old blood in the colon and it would be more darker in color. Patient does have a history of diverticulosis and has undergone a colon resection last January. If she is still concerned about the blood in her stool, we can certainly order labs aswell as stool studies to see if there is occult blood and if there is, then a colonoscopy could be scheduled. Please let me know if the patient wants to perform labs and stool studies and I will enter the orders * Telephone Encounter - Zeny Méndez - 10/02/2020 10:46 AM EDT Patient called back stating that she has been having the brown blood when she wipes along with the mucus. She's not worried so much about the mucus, since I did tell her it's normal to have that withthe stool as this is how the colon lubricates the stool to pass along. But she is worried about thebrown (looks like old menstrual) blood coming from her behind. Please advise, thanks. * Telephone Encounter - Zeny Méndez - 10/02/2020 10:05 AM EDT Left a vm for the patient to call our office back. * Telephone Encounter - Rakan Tse PA-C - 10/02/2020 9:50 AM EDT Please let patient know that mucus along with stool is normal as mucus is a lubricant for the coloncould move the stool along. Occasional mucus is okay but please have her let us know if it turns entirely to mucus discharge and/or if there is rectal bleeding. * Telephone Encounter - Zeny Méndez - 10/02/2020 9:20 AM EDT Please advise, thank you. * Telephone Encounter - Ye Avendano - 10/02/2020 9:16 AM EDT Pt calling in states she has been having mucus after wiping with brown blood and is not sure why orwhat is causing this and doesn't know what to do Please advise Call pt at [phone] Thanks documented in this encounter Plan of Treatment Scheduled Orders Name Type Priority Associated Diagnoses Orde r Schedule FECES SCREENING FOR OCCULT BLOOD Lab Routine Blood in stool 1 Occurrences starting 10/02/2020 until 10/02/2021 documented as of this encounter Results * IRON/TIBC (10/03/2020 1:49 PM EDT) TOTAL IRON BINDING CAPACITY 363 250 - 450 ug/dL 10/03/2020 6:43 PM EDT [facility] IRON (FE) 64 40 - 150 ug/dL 10/03/2020 6:43 PM EDT [facility] % FE SATURATION 18 15 - 50 % 6:43 PM EDT [facility] 10/03/2020 1:49 PM EDT 10/03/2020 1:51 PM EDT [facility] 10/03/2020 6:43 PM EDT Release to patient->Immediate Rakan Carmencita MARCUS-C LAB Performing Organization Address [facility]/ZIP Co de Phone Number [facility] * FERRITIN ASSAY (10/03/2020 1:49 PM EDT) FERRITIN 41 8 - 252 ng/mL 10/03/2020 6:43 PM EDT [facility] 10/03/2020 1:49 PM EDT 10/03/2020 1:51 PM EDT Narrative [facility] - 10/03/2020 6:43 PM EDT Release to patient->Immediate Rakan Tse PA-C LAB [facility] * COMPREHENSIVE METABOLIC PANEL (10/03/2020 1:49 PM EDT) GLUCOSE 82 70 - 100 mg/dL 10/03/2020 6:43 PM EDT [facility] Comment:Reference range appl icable to fasting specimens only Blood Urea Nitrogen 16 5 - 25 mg/dL 10/03/2020 6:43 PM EDT [facility] CREAT 0.77 0.5 - 1.1 mg/dL 10/03/2020 6:43 PM EDT [facility] GLOMERULAR FILTRATION RATE > 60 10/03/2020 6:43 PM EDT [facility] Comment: If patient is -J[place]ican, multiply result by 1.21 Chronic Kidney Disease: < 60 ml/min/1.73 square meters Kidney Failure: < 15 ml/min/1.73 square meters NA 139 135 - 145 mEq/L 10/03/2020 6:43 PM EDT [facility] K 3.9 3.5 - 5.5 mmol/L 10/03/2020 6:43 PM EDT [facility] CL 103 96 - 110 mmol/L 10/03/2020 6:43 PM EDT [facility] CARBON DIOXIDE (CO2) 28 21 - 32 mmol/L 10/03/2020 6:43 PM EDT [facility] ANION GAP 8 3 - 11 10/03/2020 6:43 PM EDT [facility] CALCIUM 9.1 8.5 - 10.5 mg/dL 10/03/2020 6:43 PM EDT [facility] TOTAL PROTEIN (TP) 7.4 6.0 - 8.0 G/dL 10/03/2020 6:43 PM EDT [facility] Albumin 3.8 3.2 - 5.0 G/dL 10/03/2020 6:43 PM EDT [facility] BILIRUBIN TOTAL 0.4 0.0 - 1.4 mg/dL 10/03/2020 6:43 PM EDT [facility] SGOT 16 10 - 42 U/L 10/03/2020 6:43 PM EDT [facility] SGPT 27 10 - 60 U/L 10/03/2020 6:43 PM EDT [facility] ALK PHOS 75 42 - 121 U/L 10/03/2020 6:43 PM EDT [facility] 10/03/2020 1:49 PM EDT 10/03/2020 1:51 PM EDT Narrative [facility] - 10/03/2020 6:43 PM EDT Release to patient->Immediate Rakan Seguraki HALL [facility] * (ABNORMAL) CBC (AUTO DIFF PLATELET) (10/03/2020 1:49 PM EDT) Pathologist [facility] WHITE BLOOD COUNT 9.5 4.8 - 10.8 x10-3/uL 10/03/2020 6:31 PM EDT [facility] RED BLOOD COUNT 4.9(H) 3.8 - 4.8 x10-6/uL 10/03/2020 6:31 PM EDT [facility] Hemoglobin 13.9 11.5 - 16.0 g/dL 10/03/2020 6:31 PM EDT [facility] Hematocrit 43.6 35 - 47 % 10/03/2020 6:31 PM EDT [facility] MEAN CORPUSCULAR VOLUME 88.6 79 - 98 fL 10/03/2020 6:31 PM EDT [facility] MEAN CORPUSCULAR HEMOGLOBIN 28.3 27 - 32 pg 10/03/2020 6:31 PM EDT [facility] MEAN CORPUSCULAR HGB CONC 31.9(L) 32 - 37 g/dL 10/03/2020 6:31 PM EDT [facility] RED CELL DISTRIBUTION WIDTH 12.7 11 - 15 % 10/03/2020 6:31 PM EDT [facility] PLT COUNT 290 130 - 400 x10-3/uL 10/03/2020 6:31 PM EDT [facility] MEAN PLATELET VOLUME 11.0 7 - 11 fL 10/03/2020 6:31 PM EDT [facility] NRBC % AUTO 0.0 <1 % 10/03/2020 6:31 PM EDT [facility] NEUTROPHILS % 58.9 % 10/03/2020 6:31 PM EDT [facility] LYMPH % 32.4 % 10/03/2020 6:31 PM EDT [facility] MONO % 6.7 % 10/03/2020 6:31 PM EDT [facility] EOS % 1.1 % 10/03/2020 6:31 PM EDT [facility] BASO % 0.6 % 10/03/2020 6:31 PM EDT [facility] IMMATURE GRANULOCYTES % 0.3 % 10/03/2020 6:31 PM EDT [facility] NRBC # AUTO 0.00 <0.1 x10-3/uL 10/03/2020 6:31 PM EDT [facility] NEUT # 5.57 1.5 - 7.0 x10-3/uL 10/03/2020 6:31 PM EDT [facility] LYMPH # 3.06 1 - 5.0 x10-3/uL 10/03/2020 6:31 PM EDT [facility] MONO # 0.63 0.2 - 1.0 x10-3/uL 10/03/2020 6:31 PM EDT [facility] EOS # 0.10 0 - 0.5 x10-3/uL 10/03/2020 6:31 PM EDT [facility] BASO # 0.06 0 - 0.2 x10-3/uL 10/03/2020 6:31 PM EDT [facility] IMMATURE GRANULOCYTES # 0.03 0 - 0.03 x10-3/uL 10/03/2020 6:31 PM EDT [facility] 10/03/2020 1:49 PM EDT 10/03/2020 1:51 PM EDT Narrative [facility] - 10/03/2020 6:31 PM EDT Release to patient->Immediate Rakan Tse PA-C LAB [facility] documented in this encounter Visit Diagnoses Diagnosis Blood in stool- Primary Blood in stool documented in this encounter Care Teams Bistro Server Relationship Specialty Start Date End Date Jamal Oliva MD PCP - General Internal Medicine 03/01/19 documented as of this encounter
--- OUTSIDE RECORDS SUMMARY | 2024-08-14 13:12 | XMS_ITS | Encounter Summary ---
Author Organization [facility] Address [facility] [place] [address] Care Team Providers Care Sales Service Executive Name Role Phone Jamal Oliva MD Primary Care Provider Unavailabl e Encounter Details Date Type Department Care Team Description 03/20/2019 Release of Information Medical Records [address] [place] [id number] Abstract, Provider Social History Tobacco Use Types Packs/Day Years [...] on file documented as of this encounter Plan of Treatment Not on file documented as of this encounter Visit Diagnoses Not on filedocumented in this encounter Care Teams Sales Service Executive Relationship Specialty Start Date End Date Jamal Oliva MD PCP - General Internal Medicine 03/01/19 documented as of this encounter
--- OUTSIDE RECORDS SUMMARY | 2024-08-14 13:12 | XMS_ITS | Clinical Summary ---
Author Organization [facility] Address [address] [place] [address] Care Team Providers Care Clinical Lab Scientist Name Role Phone Jamal Oliva MD Primary Care Provider [phone] Surgical History Surgery Date Site/Laterality Comments TUBAL LIGATION PROCEDURE: HISTORICAL TUBAL LIGATION OTHER SURGICAL HISTORY PROCEDURE: [place] COLONOSCOPY FLX W/ENDOSCOPIC MUCOSAL RESECTION COLONOSCOPY 11/20/2020 [...] Cervical Cancer Screening: P ap Smear 01/25/1992 Pneumococcal Vaccine: 50+ Ye ars (1 of 1 - PCV) 2021 Zoster Vaccines (1 of 2) 2021 Cholesterol Screening (Lipid Panel) 02/28/2022 Colorectal Cancer Screening: Colonoscopy 02/28/2022 Depression Screening 02/28/2022 HIV Screening 02/28/2022 Hepatitis C Screening 02/28/2022 Social Influencers of Health Screening 02/28/2022 Hypertension/CHF/CAD Annual BMP Blood Test 03/14/2022 COVID-19 Vaccine ( - 2023-2 5 season) 2023 Influenza Vaccine (Season Ended) 2024 HIB Vaccines Aged Out No longer eligi [...] patient's age to complete this topic Meningococcal B Vaccine Aged Out No l onger eligible based on patient's age to complete [...] age to complete this topic Care Teams Clinical Lab Scientist Relationship Specialty Start Date End Date Jamal Oliva MD [address] [place] [address] [address] [facility] [place] [address] PCP - General Internal Medicine 03/01/19
--- OUTSIDE RECORDS SUMMARY | 2024-08-14 13:12 | XMS_ITS | Encounter Summary ---
Author Organization [facility] Address [facility] [place] [address] Care Team Providers Care Manager Planning Name Role Phone Jamal Oliva MD Primary Care Provider Unavailabl e Encounter Details Date Type Department Care Team Description 01/25/2020 Physics Professor Report Medical Records [address] [place] [address] Kenneth Madrid MD Social History Tobacco Use Types Packs/Day [...] have Coronavirus / COVID-19? No / Unsure 01/03/2020 8:39 AM EDT documented as of this encounter Plan of Treatment Not on file documented as of this encounter Visit Diagnoses Not on filedocumented in this encounter Care Teams Manager Planning Relationship Specialty Start Date End Date Jamal Oliva MD PCP - General Internal Medicine 03/01/19 documented as of this encounter
--- OUTSIDE RECORDS SUMMARY | 2024-08-14 13:12 | XMS_ITS | Encounter Summary ---
Author Organization [facility] Address [facility] [place] [address] Care Team Providers Care Inflated Ball Molder Name Role Phone Jamal Oliva MD Primary Care Provider Unavailabl e Encounter Details Date Type Department Care Team Description 02/07/2020 Crown Assembly Machine Operator Report Medical Records [address] [place] [address] Kenneth Madrid MD Social History Tobacco Use [...] have Coronavirus / COVID-19? No / Unsure 02/09/2020 9:27 AM EST documented as of this encounter Plan of Treatment Not on file documented as of this encounter Visit Diagnoses Not on filedocumented in this encounter Care Teams Inflated Ball Molder Relationship Specialty Start Date End Date Jamal Oliva MD PCP - General Internal Medicine 03/01/19 documented as of this encounter
--- OUTSIDE RECORDS SUMMARY | 2024-08-14 13:12 | XMS_ITS | Encounter Summary ---
Author Organization [facility] Address [address] [place] [address] Care Team Providers Care Battery Container Finishing Hand Name Role Phone Jamal Oliva MD Primary Care Provider Unavailabl e Encounter Details Date Type Department Care Team Description 02/01/2020 Orders Only Medical Records [address] [place] [address] Matt Acuña MD [address] [place] [phone] Social History Tobacco Use Types Packs/Day Years [...] Date/Time Associated Diagnosis Comments OUTSIDE PATHOLOGY Routine 01/29/2020 documented in this encounter Results * OUTSIDE PATHOLOGY (01/29/2020) Matt Acuña MD OUTSIDE LAB documented in this encounter Visit Diagnoses Not on filedocumented in this encounter Care Teams Battery Container Finishing Hand Relationship Specialty Start Date End Date Jamal Oliva MD PCP - General Internal Medicine 03/01/19 documented as of this encounter
--- OUTSIDE RECORDS SUMMARY | 2024-08-14 13:12 | XMS_ITS | Encounter Summary ---
Author Organization [facility] Address [address] [place] [address] Care Team Providers Care Supervisory Clerk Name Role Phone Jamal Oliva MD Primary Care Provider Unavailabl e Reason for Visit * Reason Onset Date Comments Medication 08/12/2022 Encounter Details Date Type Department Care Team Description 08/12/2022 Refill Gastroenterology - [address] [place] [id number] Mariama Mohan MD [address] [place] [address] Medication Social History Tobacco Use Types Packs/Day [...] on filedocumented in this encounter Care Teams Supervisory Clerk Relationship Specialty Start Date End Date Jamal Oliva MD PCP - General Internal Medicine 03/01/19 documented as of this encounter
--- OUTSIDE RECORDS SUMMARY | 2024-08-14 13:12 | XMS_ITS | Encounter Summary ---
Author Organization [facility] Address [address] [place] [address] Care Team Providers Care Glazier Stained Glass Name Role Phone Jamal Oliva MD Primary Care Provider Unavailabl e Reason for Visit * Reason Onset Date Comments Diverticulitis 12/11/2019 Encounter Details Date Type Department Care Team Description 12/11/2019 Telephone Gastroenterology - [place] [address] [phone] Rakan Tse PA-C [address] [address] Diverticulitis Social History Tobacco Use Types Packs/Day Years [...] have Coronavirus / COVID-19? No / Unsure 12/12/2019 9:43 AM EDT documented as of this encounter Miscellaneous Notes * Telephone Encounter - Alicia Lopezregard - 12/11/2019 10:00 AM EDT Symptoms patient is presenting: abdominal pain, cramps For ALL patients calling to schedule any appointment (routine, sick visit, follow up, consult, etc.) in the outpatient setting please ask the following questions: ?? Do you have fever of higher than 101, sore throat with difficulty swallowing or severe shortnessof breath? NO If YES to any of these above symptoms, send a message to triage and do not book. Red dot. If no, an audio or video visit should be booked. ?? Have you had close contact with someone with Coronavirus in the last 14 days? NO ?? Have you traveled abroad? NO ?? Have you traveled recently to another state outside of [place], [place], [place], [place], [place], [place], [place]? NO o If yes, did you quarantine for 14 days or have a negative covid test? NO If yes to any of the above, patient is not to be scheduled in office until after 14 day quarantine or negative covid test. If pain or injury related was it due to an accident at work or from a motor vehicle accident? NO If yes, gather 3rd republican insurance information Date of accident/Injury: n/a How long has patient had these symptoms?: 24 hours PCP: Jamal Oliva MD Payor: CATIA/LAEX POS / Plan: PPO $25 [place] [id number] / Product Type: PPO [id number] documented in this encounter Plan of Treatment Not on file documented as of this encounter Visit Diagnoses Not on filedocumented in this encounter Care Teams Glazier Stained Glass Relationship Specialty Start Date End Date Jamal Oliva MD PCP - General Internal Medicine 03/01/19 documented as of this encounter
[2024-08-14 14:23] LABS: Iron 65 mcg/dL (30-160); Percent Iron Saturation 19 % (15-50); Total Iron Binding Capacity 345 mcg/dL (228-428); Unsaturated Iron Binding 280 ug/dL
[2024-08-16 23:33] LABS: TS Negative Control Passed; TS Panel A 0; TS Panel B 0; TS Positive Control Passed; TSpotTB Negative (Negative)
== END 2024-08-14 12:29 | disposition home or self-care (01) ==
LOC: HO.LAB 12:28
PROVIDERS: Clinical Nurse Specialist Psychiatric/Mental Health; PCP Internal Medicine; Visit Provider Internal Medicine
DX: Z13.9 Encounter for screening, unspecified (principal); R45.1 Restlessness and agitation; F41.1 Generalized anxiety disorder; Z11.1 Encounter for screening for respiratory tuberculosis
CPT/HCPCS: 36415; 83540; 84443; 86481

== ENCOUNTER 2024-08-18 13:17 | Outpatient (AMB) | payer OTHER, SELFPAY ==
--- OUTSIDE RECORDS SUMMARY | 2024-08-18 13:21 | XMS_ITS | Clinical Summary ---
Author Organization [facility] Address [address] [place] [address] Care Team Providers Care Wildlife Conservation Professor Name Role Phone Jamal Oliva MD Primary Care Provider [phone] Surgical History Surgery Date Site/Laterality Comments TUBAL LIGATION PROCEDURE: HISTORICAL TUBAL LIGATION OTHER SURGICAL HISTORY PROCEDURE: [place] COLONOSCOPY FLX W/ENDOSCOPIC MUCOSAL RESECTION COLONOSCOPY 11/20/2020 [...] age to complete this topic Care Teams Wildlife Conservation Professor Relationship Specialty Start Date End Date Jamal Oliva MD [address] [place] [address] [address] [facility] [place] [address] PCP - General Internal Medicine 03/01/19
[2024-08-18 13:28] VITALS: BP 112/70; PULSE 82; TEMP 36.2; O2SAT 97; BMI 28.3
--- NOTE | 2024-08-18 13:28 | MHC.PC.OV ---
Vital Signs 08/18/24 13:28 Height 5 ft 6 in Weight 175 lb 8 oz BMI 28.3 BP 112/70 Blood Pressure Location Lt brachial Position Sitting Pulse 82 Pulse Source Pulse Oximeter Temp 97.1 F Temp Source Temporal Artery Scan Pulse Oximetry (%) 97 Oxygen Delivery Method Room Air Intake Visit Reasons: DM, Discuss medication issues Newspaper Reporter Required: No Accompanied by: Self / Same As Patient Allergies morphine [MORPHINE] Allergy (Severe, Verified 08/18/24 13:34) REDNESS, RASH, ITCHING, rash metformin Adverse Reaction (Intermediate, Unverified 08/18/24 13:47) constipation Medication List - Last Reconciled 08/18/24 by Jamal Oliva MD alprazolam (Xanax) 0.5 mg PO BID PRN compress.stocking,knee,reg,med As directed 20-30 mm HG desonide 0.05% 1 appl topical DAILY hydrochlorothiazide 12.5 mg PO DAILY hydrocortisone 2.5% (Proctosol HC) 1 appl VA BID-QID PRN lisinopril 5 mg PO DAILY nicotine 1 patch transdermal DAILY omeprazole 20 mg PO DAILY semaglutide (Ozempic) 0.5 mg (0.736 mL) subcut QWEEK 30 days simvastatin 10 mg PO BEDTIME topiramate 25 mg PO BEDTIME zolpidem 5 mg PO BEDTIME 90 days Tobacco use date assessed: 08/18/24 Dental Screening Dental Screen Date: 08/18/24 Did you have a dental visit in the last 12 months?: No Did you have a dental problem in the last 6 months where you did not have access to dental care?: No Was dental information given to patient?: Patient has dentist [facility] Medical History (Updated 05/10/24 @ 14:34 by Mandi Ryder PA-C) Right hip pain Bilateral hand pain Diabetes mellitus type 2, controlled, without complications Type 2 diabetes mellitus with hyperglycemia History of renal calculi GERD (gastroesophageal reflux disease) Insomnia Obesity (BMI 30-39.9) Hypertension Hypercholesterolemia Tobacco abuse Surgical History H/O colonoscopy Hx of abdominal surgery History of kidney surgery History of tubal ligation Diverticulitis Family History Father Hypertension Mother Colon cancer Diabetes Sister Diabetes Lymphoma Family/Other Mental health disorder Social History Household Members: Spouse and Children Housing: House Alcohol intake: current Patient Tobacco Use Status: Current everyday Tobacco user Tobacco use type: Smokeless Tobacco Years Smoked: 2004 but vaping e-Cigarette/Vaping Use: Currently Using Second Hand Smoke Exposure: No service: No Current occupational status: employed Current occupational exposures/hazards: No Cognitive needs: No Hearing needs: No Vision needs: Yes Questionnaire PHQ-9 Over the last 2 weeks, how often have you been bothered by any of the following problems? 1. Little interest or pleasure in doing things: not at all 2. Feeling down, depressed, or hopeless: not at all 3. Trouble falling or staying asleep, or sleeping too much: not at all 4. Feeling tired or having little energy: not at all 5. Poor appetite or overeating: not at all 6. Feeling bad about yourself - or that you are a failure or have let yourself or your family down: not at all 7. Trouble concentrating on things, such as reading the newspaper or watching television: nearly every day 8. Moving or speaking so slowly that other people could have noticed. Or the opposite - being so fidgety or restless that you have been moving around a lot more than usual: not at all 9. Thoughts that you would be better off or of hurting yourself in some way: not at all Total score: 3 Depression Screening Interpretation: Negative Depression Screening Done: Yes 95938 - PHQ-9 Billing: Yes Source: Developed by Drs. Shorty Chin, Carmen Ramon, Zachary Schuster and colleagues, with an educational greg from [employer]. Thrive Questionnaire Date Thrive assessed: 08/18/24 I am a: Patient What is your living situation today?: I have a steady place to live Within the past 12 months, did the food you bought not last and you didn't have the money to get more?: I choose not to answer this question Within the past 12 months, did you worry whether your food would run out before you got money to buy more?: Often true Do you have trouble paying for medicines?: I choose not to answer this question Do you have trouble getting transportation to medical appointments?: I choose not to answer this question Do you have trouble paying your heating and electricity bill?: Yes Do you have trouble taking care of your child, family member or friend?: No Do you have trouble with day-to-day activities such as bathing, preparing meals, shopping, managing finances, etc.?: No Are you currently unemployed and looking for a job?: No Are you interested in more education?: No Please select the resources that you would like help with: None Currently or been in a relationship where the following occur: I choose not to answer THRIVE Score: 2 AUDIT C Alcohol Use Questionnaire (AUDIT-C) 1. How often do you have a drink containing alcohol?: Never 3. How often do you have six or more drinks on one occasion?: Never Total Score: 0 VICTORIA-7 AMB Questionnaire VICTORIA-7 Date VICTORIA - 7 assessed: 08/18/24 Feeling nervous, anxious, or on edge: 3 = Nearly every day Not being able to stop or control worryin = Several days Worrying too much about different things: 1 = Several days Trouble relaxin = Nearly every day Being so restless that it is hard to sit still: 3 = Nearly every day Becoming easily annoyed or irritable: 1 = Several days Feeling afraid as if something awful might happen: 0 = Not at all Total VICTORIA-7 score (0-4 normal; 5-9 mild; 10-14 moderate; 15-21 severe): 12 Source: Developed by Drs. Shorty Chin, Carmen Ramon, Zachary Schuster and colleagues, with an educational greg from [employer]. VICTORIA-7 Assessment Billing VICTORIA-7 Assessment Tool: VICTORIA-7 Assessment 45193 Physical exam (Primary Care) Vital Signs: Last Vital Signs Temp 97.1 F 08/18/24 13:28 Pulse 82 08/18/24 13:28 BP 112/70 08/18/24 13:28 Pulse Ox 97 08/18/24 13:28 Oxygen Delivery Method Room Air 08/18/24 13:28 BMI result Body Mass Index 28.3 Tobacco/Smoking Status: Tobacco use Status Tobacco use date assessed 08/18/24 08/18/24 13:37 Patient Tobacco Use Status Current everyday Tobacco 08/18/24 13:32 Tobacco use type Smokeless Tobacco 08/18/24 13:32 e-Cigarette/Vaping Use Currently Using 08/18/24 13:32 PHQ-9: PHQ-9 Score PHQ-9: Total score 3 08/18/24 13:38 Depression Screening Interpretation: Negative Thrive Assessment: Date of Thrive Assessment Date Thrive assessed 08/18/24 08/18/24 13:37 Currently or been in a relationship where the following occur: I choose not to answer Const General: alert; No acute distress Eyes Conjunctivae: conjunctivae normal Resp Auscultation: clear to auscultation bilaterally Cardio Rate: regular rate Rhythm: regular rhythm GI Inspection: Yes normal to inspection Extrem General: Yes normal to inspection and No edema Results AMB Hemoglobin A1c AMB Hemoglobin A1c 5.5 % Last Edit by ELAN Sellers on 08/18/24 13:38 Results Reviewed Results Reviewed: Laboratory Last Values Hgb A1c (Clinic) 5.5 % (4.0-6.0) 08/18/24 13:21 Coding Level of Care Code Est Pt Level 4 (06483) Complex EM visit Add On G2211 Diagnoses Type 2 diabetes mellitus with hyperglycemia, without long-term current use of insulin E11.65 Diabetes mellitus mcfp insulin use: without predatory animal exterminator use Hypercholesterolemia E78.00 Essential hypertension I10 Hypertension type: essential hypertension Gastroesophageal reflux disease, unspecified whether esophagitis present K21.9 Esophagitis presence: esophagitis presence not specified Generalized anxiety disorder with panic attacks F41.1; F41.0 Additional Codes VICTORIA-7 Assessment Billing - VICTORIA-7 Assessment Tool: VICTORIA-7 Assessment 84977 ([id number]) PHQ-9 - 54689 - PHQ-9 Billing: Yes ([id number]) Assessment & Plan Assessment & Plan (1) Type 2 diabetes mellitus with hyperglycemia: Code(s): E11.65 - Type 2 diabetes mellitus with hyperglycemia Category: Medical Qualifiers: Diabetes mellitus predatory animal exterminator insulin use: without predatory animal exterminator use Qualified Code(s): E11.65 - Type 2 diabetes mellitus with hyperglycemia Plan: Decrease the amount of carbohydrate intake, pasta, bread, rice and potatoes are all sugar and that is aside from all the sweet stuff, remember that fruits are good but they are Sweet also. Hemoglobin A1c goal of less than 6.5 patient on Ozempic once a week (2) Hypercholesterolemia: Code(s): E78.00 - Pure hypercholesterolemia, unspecified Category: Medical Plan: Avoid fried foods, chicken skin, eggs, butter margarine, pastries and meat. Be it pork or beef they have a lot of cholesterol LDL goal of less than 100 and triglyceride of less than 150. Patient on simvastatin needs to have blood work (3) Hypertension: Code(s): I10 - Essential (primary) hypertension Category: Medical Qualifiers: Hypertension type: essential hypertension Qualified Code(s): I10 - Essential (primary) hypertension Plan: Continue with blood pressure medication. Decrease salt intake and exercise patient has lisinopril 5 mg once a day (4) GERD (gastroesophageal reflux disease): Code(s): K21.9 - Gastro-esophageal reflux disease without esophagitis Category: Medical Qualifiers: Esophagitis presence: esophagitis presence not specified Qualified Code(s): K21.9 - Gastro-esophageal reflux disease without esophagitis Plan: Avoid the foods that causes that usually spicy foods, tomato products, juices, coffee, soda and foods that your sensitive to. After eating do not lie down, allow 3-4 hours before in lie down. And keep the head of bed above 30 degrees to avoid the acid from going up. (5) Generalized anxiety disorder with panic attacks: Code(s): F41.1 - Generalized anxiety disorder; F41.0 - Panic disorder [episodic paroxysmal anxiety] Category: Medical Plan: Patient has seen psychiatric nurse and has been treating with alprazolam and Topamax Plan History of Present Illness The patient is a 54-year-old female presenting with a follow-up for current chronic illnesses and wellness management. She has essential hypertension managed with lisinopril, hypercholesterolemia treated with simvastatin, and type 2 diabetes controlled with Ozempic. Earlier this year, she was treated for an upper respiratory tract infection at an urgent care facility. The patient's anxiety is managed by a psychiatric nurse with alprazolam and topamax. She was scheduled for surgery to address an intestinal blockage but postponed due to COVID-19. Her health maintenance includes a mammogram in March 2024 and a planned colonoscopy. There is also an assessment of her vaccination status, highlighting tetanus. Health Maintenance - Vaccinations up-to-date except tetanus, which is recommended after a potential exposure. - Mammogram completed in March 2024. - Colonoscopy recommended in the following year after sigmoidoscopy in 2023. - Blood work for cholesterol scheduled since last done in November 2021. - Regular follow-up with psychiatric services. Social History - Discussed potential plans for surgery and family support during recovery. - Vaccination status updated with awareness of future recommendations. - Issues related to anxiety and stress management with psychiatric intervention. Review of Systems - Cardiovascular: Reports hypertension. - Endocrine: Reports diabetes mellitus. - Gastrointestinal: Reports GERD and history of nephrolithiasis. - Neurological/Psychiatric: Reports generalized anxiety disorder. - Respiratory: Denies current respiratory symptoms following prior upper respiratory tract infection. - Musculoskeletal: Reports obesity. Physical Exam Results - Labs: Last complete blood work performed in November 2021 to check cholesterol levels. - Tests: Mammogram done in March 2024; sigmoidoscopy performed in 2023. Plan 1. 5%. For hypercholesterolemia, simvastatin aims for an LDL under 100 and triglycerides below 150, with upcoming lab work to assess progress. Anxiety control is under the psychiatric nurse's guidance. We have scheduled a colonoscopy next year. Surgical plans for addressing an intestinal blockage await post-COVID resolution. The patient will ensure up-to-date vaccines, especially tetanus.: Patient was informed and verbally consented to the use of an ambient scribe for clinic note documentation during this visit. Discussion Notes We discussed strategies for managing hypertension, hypercholesterolemia, and diabetes, emphasizing the importance of regular medication and consistent monitoring. The rationale for ongoing psychiatric support was outlined, focusing on current anxiety management. I explained the delay in surgical intervention due to COVID-19 and the importance of rescheduling soon. We reviewed vaccination status, indicating that a tetanus booster is advisable. Consideration of upcoming procedures, namely the planned colonoscopy, and preparation was advised. Follow-up will be essential for assessing these chronic conditions and ensuring optimal healthcare decisions. Patient Instructions - Continue taking lisinopril, simvastatin, and Ozempic as prescribed. - Schedule a colonoscopy next year. - Reschedule postponed intestinal surgery if symptoms persist. - Get a tetanus booster shot following COVID-19 recovery. - Continue to see the psychiatric nurse for anxiety management. - Return for blood work to monitor cholesterol and diabetes control. - Follow lifestyle recommendations to support weight and stress management. Orders: Orders Microalbumin, Random (w Creat) Today E11.65 - Type 2 diabetes mellitus with hyperglycemia Thyroid Stimulating Hormone Today E11.65 - Type 2 diabetes mellitus with hyperglycemia Vitamin D 25-OH Total Today E11.65 - Type 2 diabetes mellitus with hyperglycemia Hemoglobin A1c Today E11.65 - Type 2 diabetes mellitus with hyperglycemia AMB Hemoglobin A1c Today E11. - Type 2 diabetes mellitus with hyperglycemia Complete Blood Count Auto Diff Today E11. - Type 2 diabetes mellitus with hyperglycemia Comprehensive Met. Panel Today E11. - Type 2 diabetes mellitus with hyperglycemia Creatinine Urine Today E11.65 - Type 2 diabetes mellitus with hyperglycemia Vitamin B12 and Folate Today E11. - Type 2 diabetes mellitus with hyperglycemia Free T4 (Free Thyroxine) Today E11. - Type 2 diabetes mellitus with hyperglycemia Lipid Panel Today E11.65 - Type 2 diabetes mellitus with hyperglycemia, E78.00 - Pure hypercholesterolemia, unspecified Medications: Changed From semaglutide (Ozempic) for 4 weeks 0.5 mg (0.736 mL) subcut QWEEK 30 days 3.68 mL 0RF E11. - Type 2 diabetes mellitus with hyperglycemia To semaglutide for 4 weeks 1 mg (0.75 mL) subcut QWEEK 3.75 mL 2RF 30 days E11.65 - Type 2 diabetes mellitus with hyperglycemia Refilled alprazolam (Xanax) 0.5 mg PO BID PRN 60 tabs 1RF severe anxiety or panic E11.65 - Type 2 diabetes mellitus with hyperglycemia topiramate 25 mg PO BEDTIME 30 tabs 1RF E11.65 - Type 2 diabetes mellitus with hyperglycemia zolpidem 5 mg PO BEDTIME 90 tabs 1RF 90 days E11.65 - Type 2 diabetes mellitus with hyperglycemia
== END 2024-08-18 13:57 | disposition home or self-care (01) ==
PROVIDERS: PCP Internal Medicine; Visit Provider Internal Medicine
DX: E11.65 Type 2 diabetes mellitus with hyperglycemia (principal); E78.00 Pure hypercholesterolemia, unspecified; I10 Essential (primary) hypertension; K21.9 Gastro-esophageal reflux disease without esophagitis; F41.1 Generalized anxiety disorder; F41.0 Panic disorder [episodic paroxysmal anxiety]

== ENCOUNTER → 2024-08-18 13:17 | Outpatient (BNVA) | payer OTHER, SELFPAY | PROVIDERS: PCP Internal Medicine; Visit Provider Internal Medicine | DX: E11.65 Type 2 diabetes mellitus with hyperglycemia (principal); E78.00 Pure hypercholesterolemia, unspecified; I10 Essential (primary) hypertension; K21.9 Gastro-esophageal reflux disease without esophagitis; F41.1 Generalized anxiety disorder; F41.0 Panic disorder [episodic paroxysmal anxiety]; Z79.85 Long-term (current) use of injectable non-insulin antidiabetic drugs; Z79.899 Other long term (current) drug therapy; Z13.30 Encounter for screening examination for mental health and behavioral disorders, unspecified | CPT/HCPCS: 83036; 96127; 99212 ==

== ENCOUNTER 2024-08-28 07:10 | Outpatient (REF) | payer OTHER, SELFPAY ==
[2024-08-28 07:37] LABS: MANUAL DIFF FLAG NO
[2024-08-28 08:13] LABS: Basophils Absolute Auto 0.1 X10*3/uL (0.0-0.2); Basophils Percent Auto 0.9 % (0-2); Eosinophils Absolute Auto 0.2 X10*3/uL (0.0-0.4); Eosinophils Percent Auto 2.1 % (0-4); Hematocrit 39.6 % (37.0-47.0); Hemoglobin 13.3 g/dl (12.0-16.0); Imm Gran Abs Auto 0.03 X10*3/uL (0.00-0.03); Imm Gran Pct Auto 0.4 % (0.0-0.4); Lymphocytes Absolute Auto 2.4 X10*3/uL (1.2-4.9); Lymphocytes Percent Auto 31.2 % (20-40); Mean Corpuscular HGB Conc 33.6 g/dl (31.0-35.0); Mean Corpuscular Hemoglobin 29.1 pg (27.0-33.0); Mean Corpuscular Volume 86.7 fL (80.0-98.0); Mean Platelet Volume 10.7 fL (9.4-12.3); Monocytes Absolute Auto 0.6 X10*3/uL (0.1-1.2); Monocytes Percent Auto 7.2 % (2-11); Neutrophils Absolute Auto 4.5 x10*3/uL (2.0-8.3); Neutrophils Percent Auto 58.2 % (45-73); Platelet Count 282 X10*3/uL (160-400); Red Blood Count 4.57 X10*6/uL (4.20-5.50); Red Cell Distribution Width 12.7 % (11.0-16.0); White Blood Count 7.8 X10*3/uL (4.8-10.8)
[2024-08-28 08:32] LABS: Estimated Average Glucose 117 mg/dL; Hemoglobin A1C 134.0579 umol/L; Hemoglobin A1c % 5.7 % (<6.0); Total Hemoglobin (HGBA1C) 3439.0999 umol/L
[2024-08-28 08:51] LABS: Creatinine Urine 70.73 mg/dL
[2024-08-28 09:01] LABS: Alanine Aminotransferase 31 U/L (0-31); Albumin Level 3.8 g/dL (3.5-5.0); Alkaline Phosphatase 76 U/L (39-117); Anion Gap 10 (12-20); Aspartate Amino Transferase 22 U/L (5-31); Bilirubin Total 0.3 mg/dL (0.0-1.0); Blood Urea Nitrogen 20 mg/dL (9-16); Calcium 9.1 mg/dL (8.4-10.2); Carbon Dioxide 27 mmol/L (22-29); Chloride 110 mmol/L (96-108); Cholesterol 178 mg/dL (<200); Estimated Glomerular Filt Rate > 60; Free T4 (Free Thyroxine) 0.96 ng/dL (0.71-1.85); Glucose Random 138 mg/dL (60-115); HDL Cholesterol 47 mg/dL (>40); LDL Cholesterol Calculated 114 mg/dL (<100); Potassium 4.5 mmol/L (3.3-5.1); Sodium 142 mmol/L (135-145); Thyroid Stimulating Hormone 3.64 uIU/mL (0.32-4.0); Total Protein 6.8 g/dL (6.5-8.0); Triglycerides 86 mg/dL (<150); Vitamin D 25-OH Total 32.2 ng/mL (>30)
[2024-08-28 09:15] LABS: Folate 6.7 ng/mL (> or = 4.0); Vitamin B12 435 pg/mL (200-900)
== END 2024-08-28 07:11 | disposition home or self-care (01) ==
LOC: HO.LAB 07:10
PROVIDERS: PCP Internal Medicine; Visit Provider Internal Medicine
DX: E11.65 Type 2 diabetes mellitus with hyperglycemia (principal); E78.00 Pure hypercholesterolemia, unspecified
CPT/HCPCS: 36415; 80053; 80061; 82043; 82306; 82570; 82607; 82746; 83036; 84439; 84443; 85025

== ENCOUNTER 2024-10-18 08:39 | Day surgery (SDC) | payer OTHER, SELFPAY ==
--- OUTSIDE RECORDS SUMMARY | 2024-09-11 15:18 | XMS_ITS | Encounter Summary ---
Author Organization [facility] Address [address] [place] [address] Care Team Providers Care Ict Support Engineer Name Role Phone Jamal Oliva MD Primary Care Provider Unavailabl e Reason for Visit * Reason Onset Date Comments Diverticulitis 12/11/2019 Encounter Details Date Type Department Care Team Description 12/11/2019 Telephone Gastroenterology - [place] [address] [phone] Rakan Tse PA-C [address] [address] Diverticulitis Social History Tobacco Use Types Packs/Day [...] traveled recently to another state outside of [place], [place], [place], [place], [place], [place], [place]? NO o If yes, did you quarantine [...] vehicle accident? NO If yes, gather 3rd alliance party insurance information Date of accident/Injury: n/a How long has patient had these symptoms?: 24 hours PCP: Jamal Oliva MD Payor: CATIA/ALEX POS / Plan: PPO $25 [place] [id number] / Product Type: PPO [id number] documented in this encounter Plan of Treatment Not on file documented as of this encounter Visit Diagnoses Not on filedocumented in this encounter Care Teams Ict Support Engineer Relationship Specialty Start Date End Date Jamal Oliva MD PCP - General Internal Medicine 03/01/19 documented as of this encounter
--- NOTE | 2024-10-17 09:46 | HO.ANESPROP2 ---
Documented by User: Vicky Adams NP 10/17/24 09:48 HPI - Anesthesia Eval Consult details Narrative: 54 yr old female for Sigmoidoscopy Flexible with possible dilation. s/p sigmoidoscopy with TIVA 2023 DM type 2: A1C 5.5% Anesthesia Pre-Procedure Meds Is the patient on any of the following meds?: GLP1/DPP4 PMFSH Active Problems Active Problems: All Active Problems URI, acute (Acute) Generalized anxiety disorder with panic attacks (Acute) Restlessness and agitation (Acute) Eczema (Acute) Hypersomnolence (Acute) Abnormal uterine and vaginal bleeding, unspecified (Acute) Stenosis colon (Acute) Thoracic radiculitis (Acute) Muscle pain (Acute) Peripheral vascular disease (Acute) Dysphagia (Acute) Vaping nicotine dependence, non-tobacco product (Acute) Constipation (Acute) Breast cancer screening by mammogram (Acute) Overweight (BMI 25.0-29.9) (Acute) Generalized anxiety disorder (Acute) Annual physical exam (Acute) Diverticulitis (Acute) Type 2 diabetes mellitus with hyperglycemia (Acute) History of renal calculi (Acute) GERD (gastroesophageal reflux disease) (Acute) Insomnia (Acute) Hypertension (Acute) Hypercholesterolemia (Acute) Obesity (BMI 30-39.9) (Acute) Past Medical History Medical History Right hip pain Bilateral hand pain Diabetes mellitus type 2, controlled, without complications Type 2 diabetes mellitus with hyperglycemia History of renal calculi GERD (gastroesophageal reflux disease) Insomnia Obesity (BMI 30-39.9) Hypertension Hypercholesterolemia Tobacco abuse Family History Family History Father Hypertension Mother Colon cancer Diabetes Sister Diabetes Lymphoma Family/Other Mental health disorder Family history of problems with anesthesia: No Surgical History Surgical History H/O colonoscopy Hx of abdominal surgery History of kidney surgery History of tubal ligation Diverticulitis History of Problems with Anesthesia: No Social History Social History Household Members: Spouse and Children Housing: House Are you a primary hospice home care coordinator to a significant other at home: No Do you presently have visiting nurse or other home services: No Alcohol intake: current Alcohol intake frequency: holidays/special occasions only Patient Tobacco Use Status: Current everyday Tobacco user Tobacco use type: Smokeless Tobacco Years Smoked: 2004 but vaping e-Cigarette/Vaping Use: Currently Using Second Hand Smoke Exposure: No Use of substances other than those prescribed or required for medical reasons: No Have you been hit, kicked, punched, or otherwise hurt by someone within the past year? If so, by whom?: No Are you DNR?: No Advance Directives: No Advance Directives Information Provided: Yes Patient : No : No Poor oral hygiene: No service: No Current occupational status: employed Current occupational exposures/hazards: No Cognitive needs: No Hearing needs: No Vision needs: Yes Meds Allergies Allergy/AdvReac Type Severity Reaction Status Date / Time morphine (MORPHINE) Allergy Severe REDNESS, Verified 10/18/24 08:50 RASH, ITCHING, rash metformin AdvReac Intermediate constipatio Verified 10/18/24 08:50 n Home Medications ?Medication ?Instructions ?Recorded ?Confirmed ?Last Taken ?Type lactobacillus combination no.4 3 1 10/18/24 10/18/24 History billion cell capsule (Probiotic) Exam Pertinent Lab Results Pertinent Lab Results: Laboratory Tests 08/28/24 07:36 WBC 7.8 RBC 4.57 Hgb 13.3 Hct 39.6 Plt Count 282 Sodium 142 Potassium 4.5 Chloride 110 H BUN 20 H Creatinine 0.82 Assessment and Plan Final Anesthetic Review Family History of Problems with Anesthesia: No History of Problems with Anesthesia: No Documented by User: Negrita Baca MD 10/18/24 09:12 [facility] Past Medical History Medical History Right hip pain Bilateral hand pain Diabetes mellitus type 2, controlled, without complications Type 2 diabetes mellitus with hyperglycemia History of renal calculi GERD (gastroesophageal reflux disease) Insomnia Obesity (BMI 30-39.9) Hypertension Hypercholesterolemia Tobacco abuse Family History Family History Father Hypertension Mother Colon cancer Diabetes Sister Diabetes Lymphoma Family/Other Mental health disorder Surgical History Surgical History H/O colonoscopy Hx of abdominal surgery History of kidney surgery History of tubal ligation Diverticulitis Social History Social History Household Members: Spouse and Children Housing: House Are you a primary hospice home care coordinator to a significant other at home: No Do you presently have visiting nurse or other home services: No Alcohol intake: current Alcohol intake frequency: holidays/special occasions only Patient Tobacco Use Status: Current everyday Tobacco user Tobacco use type: Smokeless Tobacco Years Smoked: 2004 but vaping e-Cigarette/Vaping Use: Currently Using Second Hand Smoke Exposure: No Use of substances other than those prescribed or required for medical reasons: No Have you been hit, kicked, punched, or otherwise hurt by someone within the past year? If so, by whom?: No Are you DNR?: No Advance Directives: No Advance Directives Information Provided: Yes Patient : No : No Poor oral hygiene: No service: No Current occupational status: employed Current occupational exposures/hazards: No Cognitive needs: No Hearing needs: No Vision needs: Yes Meds Allergies Allergy/AdvReac Type Severity Reaction Status Date / Time morphine (MORPHINE) Allergy Severe REDNESS, Verified 10/18/24 08:50 RASH, ITCHING, rash metformin AdvReac Intermediate constipatio Verified 10/18/24 08:50 n Home Medications ?Medication ?Instructions ?Recorded ?Confirmed ?Last Taken ?Type lactobacillus combination no.4 3 1 10/18/24 10/18/24 History billion cell capsule (Probiotic) Exam Airway Mallampati Class: II TM Dist: >3cm Neck ROM: Full Heart: rrr Lungs: cta Assessment and Plan Assessment Anesthesia Assessment: Anesthesia Plan Discussed and Chart Reviewed Final Anesthetic Review NPO: Yes ASA Class: II Final Preanesthetic Review: No Changes in Pt Med Stat, Meds/Allgs Chart Reviewed and Consent Obtained/Reviewed Patient Risk: Low Procedure Risk: Low Anesthetic Plan Anesthetic Plan: MAC: Disposition: Standard PACU
[2024-10-18 08:57] VITALS: BP 112/76; PULSE 64; RESP 12; TEMP 36.6; O2SAT 99; BMI 28.8
--- NOTE | 2024-10-18 09:11 | MHC.SHP ---
Pre-Procedural Eval Section A - 24 Hr Update-Section A only Date of Service: 10/18/24 Section B - Complete if H&P > 30 days Chief Complaint: Other partial intestinal obstruction Relevant Family History (Specify if Yes): Yes Relevant Social History: Tobacco Use Present Medications: see Short Stay Collaborative assessment Medical History: Significant History (Right hip pain Bilateral hand pain Diabetes mellitus type 2, controlled, without complications COVID-19 virus infection Type 2 diabetes mellitus with hyperglycemia History of renal calculi GERD (gastroesophageal reflux disease) Insomnia Obesity (BMI 30-39.9) Hypertension Hypercholesterolemia Tobacco) History of Previous Operations: Relevant previous surgery/procedure and date(s) ( H/O colonoscopy Hx of abdominal surgery History of kidney surgery History of tubal ligation Diverticulitis) Allergies: Allergies Allergy/AdvReac Type Severity Reaction Status Date / Time morphine (MORPHINE) Allergy Severe REDNESS, Verified 10/18/24 08:50 RASH, ITCHING, rash metformin AdvReac Intermediate constipatio Verified 10/18/24 08:50 n Review of Systems Sugical H&P ROS: Negative: Constitution, Cardiovascular, Respiratory, Neurological, Psychiatric, Hem-Onc, Allergic/Immunologic, Gastrointestinal, Genitourinary, Musculoskeletal, Integumentary, Endocrine and Eyes/Ears/Nose/Throat Exam Surgical H&P Exam: Normal: HEENT, Normal: Heart, Normal: Lungs, Normal: Extremities, Normal: Abdomen, Normal: Skin and Normal: Neurological Plan Diagnosis/Plan: Unchanged I have reviewed the history and physical and performed a pertinent physical examination on my patient. No changes have occurred unless specified. Time Spent With Patient Time: Total time managing care of this patient today ____ minutes.
[2024-10-18] MEDS: Lactated Ringers 1,000 ML 100 ML IVCONT (09:13)
[2024-10-18 09:14] LABS: Glucose, Whole Blood 95 mg/dL (60-115)
--- NOTE | 2024-10-18 10:25 | W.PM.OPN ---
Operative Note Operative Note Date of Service: 10/18/24 Narrative: Procedure Description: sigmoidoscopy Indication: stricture Anesthesia: MAC Sigmoidoscopy Instrument: pediatric colonoscope Colonoscopy Monitoring: Vital signs and clinical assessment, continuous EKG monitoring, Pulse oximetry, Carbon Dioxide monitoring and blood pressure monitoring were done throughout the procedure. Procedure: The patient was placed in the left lateral decubitis position and pre-procedure medications were administered. After a digital rectal examination of the ano-rectum, the video colonoscope was inserted into the rectum and advanced through the colon to the transverse colon The scope was slowly withdrawn in a retrograde panoramic fashion and the colon mucosa was carefully examined . Findings and interventions are described below. Procedure Difficulty: easy Findings: Transverse Colon: normal Sigmoid Colon: normal Rectum: circumferential stricture noted at about 10-12 cm from anal verge, dilated using wire guided balloon from 18- 20 mm in step khalil progression. Heme noted around edges then injected with 40 mg kenalog around the stricture, retroflexion with small internal hemorrhoids Anorectum - normal Colon preparation: good Impression and Post Procedure Diagnosis: stricture Plan: high fiber diet, stool softener and miralax dilation prn, if ongoing issues might consider stent Above findings were reviewed with the patient and relevant handouts were provided if indicated.
[2024-10-18 10:26] VITALS: BP 91/57; PULSE 64; RESP 16; TEMP 36.1; O2SAT 97
[2024-10-18 10:40] VITALS: BP 103/67; PULSE 58; RESP 16; TEMP 36.1; O2SAT 98
== END 2024-10-18 11:21 | disposition home or self-care (01) ==
PROVIDERS: PCP Internal Medicine; Visit Provider Internal Medicine Gastroenterology
PROC: 0DJD8ZZ Inspection of Lower Intestinal Tract, Via Natural or Artificial Opening Endoscopic (ICD-10-PCS; CPT 45330; principal; 2024-10-18 10:20)
DX: K62.4 Stenosis of anus and rectum (principal); Z98.0 Intestinal bypass and anastomosis status; K64.8 Other hemorrhoids; K59.04 Chronic idiopathic constipation; K58.9 Irritable bowel syndrome, unspecified; K21.9 Gastro-esophageal reflux disease without esophagitis; I10 Essential (primary) hypertension; E78.00 Pure hypercholesterolemia, unspecified; E11.65 Type 2 diabetes mellitus with hyperglycemia; E66.9 Obesity, unspecified; Z68.30 Body mass index [BMI] 30.0-30.9, adult; Z79.899 Other long term (current) drug therapy; Z87.442 Personal history of urinary calculi; Z88.5 Allergy status to narcotic agent; Z88.8 Allergy status to other drugs, medicaments and biological substances; Z98.890 Other specified postprocedural states; Z72.0 Tobacco use
CPT/HCPCS: 45340; 45335; 82947; C1726; J2003; J2704; J3301

== ENCOUNTER → 2024-10-18 08:39 | Outpatient (BNV) | payer OTHER, SELFPAY | PROVIDERS: PCP Internal Medicine; Visit Provider Internal Medicine Gastroenterology | DX: K56.600 Partial intestinal obstruction, unspecified as to cause (principal) | CPT/HCPCS: 45340 ==

== ENCOUNTER 2024-10-27 12:54 | Outpatient (AMB) | payer OTHER, SELFPAY ==
--- OUTSIDE RECORDS SUMMARY | 2024-10-27 12:58 | XMS_ITS | Clinical Summary ---
Author Organization [facility] Address [address] [place] [address] Care Team Providers Care Suppository Molding Machine Operator Name Role Phone Jamal Oliva MD Primary Care Provider [phone] Surgical History Surgery Date Site/Laterality Comments TUBAL LIGATION PROCEDURE: HISTORICAL TUBAL LIGATION OTHER SURGICAL HISTORY PROCEDURE: [place] COLONOSCOPY FLX W/ENDOSCOPIC MUCOSAL RESECTION COLONOSCOPY 11/20/2020 [...] Panel) 02/28/2022 Colorectal Cancer Screening: Colonoscopy 02/28/2022 HIV Screening 02/28/2022 Hepatitis C Screening 02/28/2022 Social Influencers of Health Screening 02/28/2022 Hypertension/CHF/CAD Annual BMP Blood Test 03/14/2022 COVID-19 Vaccine ( - 2023-2 5 season) 2023 Depression Screening 03/29/2024 Influenza Vaccine (#1) 2024 HIB Vaccines Aged Out No longer [...] age to complete this topic Care Teams Suppository Molding Machine Operator Relationship Specialty Start Date End Date Jamal Oliva MD [address] [place] [address] [address] [facility] [place] [address] PCP - General Internal Medicine 03/01/19
--- OUTSIDE RECORDS SUMMARY | 2024-10-27 12:58 | XMS_ITS | Encounter Summary ---
Author Organization [facility] Address [address] [place] [address] Care Team Providers Care Assistant Boiler Operator Name Role Phone Jamal Oliva MD Primary Care Provider Unavailabl e Reason for Visit * Reason Onset Date Comments Diverticulitis 12/11/2019 Encounter Details Date Type Department Care Team Description 12/11/2019 Telephone Gastroenterology - [address] [place] [id number] Rakan Tse PA-C Diverticulitis Social History Tobacco Use Types Packs/Day [...] Miscellaneous Notes * Telephone Encounter - Alicia Arriaga - 12/11/2019 10:00 AM EDT Symptoms patient [...] traveled recently to another state outside of [place], [place], [place], [place], [place], [place], [place]? NO o If yes, did you quarantine [...] vehicle accident? NO If yes, gather 3rd democrat insurance information Date of accident/Injury: n/a How long has patient had these symptoms?: 24 hours PCP: Jamal Oliva MD Payor: [employer] / Plan: PPO $25 [place] [id number] / Product Type: PPO [id number] documented in this encounter Plan of Treatment Not on file documented as of this encounter Visit Diagnoses Not on filedocumented in this encounter Care Teams Assistant Boiler Operator Relationship Specialty Start Date End Date Jamal Oliva MD PCP - General Internal Medicine 03/01/19 documented as of this encounter
[2024-10-27 13:16] VITALS: BP 110/76; PULSE 79; O2SAT 98; BMI 28.4
--- NOTE | 2024-10-27 13:16 | MHC.PC.OV ---
Vital Signs 10/27/24 13:16 Height 5 ft 7 in Weight 181 lb 2 oz BMI 28.4 BP 110/76 Blood Pressure Location Lt brachial Position Sitting Pulse 79 Pulse Source Pulse Oximeter Pulse Oximetry (%) 98 Oxygen Delivery Method Room Air Intake Visit Reasons: discuss bone pain Innovation Manager Required: No Accompanied by: Self / Same As Patient Allergies morphine (MORPHINE) Allergy (Severe, Verified 10/27/24 13:16) REDNESS, RASH, ITCHING, rash metformin Adverse Reaction (Intermediate, Verified 10/27/24 13:16) constipation Tobacco use date assessed: 10/27/24 Dental Screening Dental Screen Date: 10/27/24 Did you have a dental visit in the last 12 months?: No Did you have a dental problem in the last 6 months where you did not have access to dental care?: No Was dental information given to patient?: Patient has dentist [facility] Medical History (Updated 10/27/24 @ 13:57 by Jamal Oliva MD) Right hip pain Bilateral hand pain Diabetes mellitus type 2, controlled, without complications Type 2 diabetes mellitus with hyperglycemia History of renal calculi GERD (gastroesophageal reflux disease) Insomnia Obesity (BMI 30-39.9) Hypertension Hypercholesterolemia Tobacco abuse Surgical History H/O colonoscopy Hx of abdominal surgery History of kidney surgery History of tubal ligation Diverticulitis Family History Father Hypertension Mother Colon cancer Diabetes Sister Diabetes Lymphoma Family/Other Mental health disorder Social History Household Members: Spouse and Children Housing: House Are you a primary vocational childcare teacher to a significant other at home: No Do you presently have visiting nurse or other home services: No Alcohol intake: current Alcohol intake frequency: holidays/special occasions only Patient Tobacco Use Status: Current everyday Tobacco user Tobacco use type: Smokeless Tobacco Years Smoked: 2004 but vaping e-Cigarette/Vaping Use: Currently Using Second Hand Smoke Exposure: No service: No Current occupational status: employed Current occupational exposures/hazards: No Cognitive needs: No Hearing needs: No Vision needs: Yes Questionnaire PHQ-9 Over the last 2 weeks, how often have you been bothered by any of the following problems? 1. Little interest or pleasure in doing things: not at all 2. Feeling down, depressed, or hopeless: not at all 3. Trouble falling or staying asleep, or sleeping too much: not at all 4. Feeling tired or having little energy: not at all 5. Poor appetite or overeating: not at all 6. Feeling bad about yourself - or that you are a failure or have let yourself or your family down: not at all 7. Trouble concentrating on things, such as reading the newspaper or watching television: nearly every day 8. Moving or speaking so slowly that other people could have noticed. Or the opposite - being so fidgety or restless that you have been moving around a lot more than usual: not at all 9. Thoughts that you would be better off or of hurting yourself in some way: not at all Total score: 3 Depression Screening Interpretation: Negative Depression Screening Done: Yes 14483 - PHQ-9 Billing: Yes Source: Developed by Drs. Shorty Chin, Carmen Ramon, Zachary Schuster and colleagues, with an educational greg from [employer]. Thrive Questionnaire Date Thrive assessed: 10/27/24 I am a: Patient What is your living situation today?: I have a steady place to live Within the past 12 months, did the food you bought not last and you didn't have the money to get more?: I choose not to answer this question Within the past 12 months, did you worry whether your food would run out before you got money to buy more?: Often true Do you have trouble paying for medicines?: I choose not to answer this question Do you have trouble getting transportation to medical appointments?: I choose not to answer this question Do you have trouble paying your heating and electricity bill?: Yes Do you have trouble taking care of your child, family member or friend?: No Do you have trouble with day-to-day activities such as bathing, preparing meals, shopping, managing finances, etc.?: No Are you currently unemployed and looking for a job?: No Are you interested in more education?: No Please select the resources that you would like help with: None Currently or been in a relationship where the following occur: I choose not to answer THRIVE Score: 2 AUDIT C Alcohol Use Questionnaire (AUDIT-C) 1. How often do you have a drink containing alcohol?: Never 3. How often do you have six or more drinks on one occasion?: Never Total Score: 0 VICTORIA-7 AMB Questionnaire VICTORIA-7 Date VICTORIA - 7 assessed: 10/27/24 Feeling nervous, anxious, or on edge: 3 = Nearly every day Not being able to stop or control worryin = Several days Worrying too much about different things: 1 = Several days Trouble relaxin = Nearly every day Being so restless that it is hard to sit still: 3 = Nearly every day Becoming easily annoyed or irritable: 1 = Several days Feeling afraid as if something awful might happen: 0 = Not at all Total VICTORIA-7 score (0-4 normal; 5-9 mild; 10-14 moderate; 15-21 severe): 12 Source: Developed by Drs. Shorty Chin, Carmen Ramon, Zachary Schuster and colleagues, with an educational greg from [employer]. VICTORIA-7 Assessment Billing VICTORIA-7 Assessment Tool: VICTORIA-7 Assessment 67241 Physical exam (Primary Care) Vital Signs: Last Vital Signs Pulse 79 10/27/24 13:16 BP 110/76 10/27/24 13:16 Pulse Ox 98 10/27/24 13:16 Oxygen Delivery Method Room Air 10/27/24 13:16 BMI result Body Mass Index 28.4 Tobacco/Smoking Status: Tobacco use Status Tobacco use date assessed 10/27/24 10/27/24 13:27 Patient Tobacco Use Status Current everyday Tobacco 10/27/24 13:27 Tobacco use type Smokeless Tobacco 10/27/24 13:27 e-Cigarette/Vaping Use Currently Using 10/27/24 13:27 PHQ-9: PHQ-9 Score PHQ-9: Total score 3 10/27/24 18:01 Depression Screening Interpretation: Negative Thrive Assessment: Date of Thrive Assessment Date Thrive assessed 10/27/24 10/27/24 13:27 Currently or been in a relationship where the following occur: I choose not to answer Const General: alert; No acute distress Eyes Conjunctivae: conjunctivae normal Resp Auscultation: clear to auscultation bilaterally Cardio Rate: regular rate Rhythm: regular rhythm GI Inspection: Yes normal to inspection Extrem General: Yes normal to inspection and No edema Coding Level of Care Code Est Pt Level 4 (26597) Complex EM visit Add On G2211 Diagnoses Type 2 diabetes mellitus with hyperglycemia, without long-term current use of insulin E11.65 Diabetes mellitus food and beverage operations manager insulin use: without food and beverage operations manager use Hypercholesterolemia E78.00 Essential hypertension I10 Hypertension type: essential hypertension Leg pain, bilateral M79.604; M79.605 Additional Codes VICTORIA-7 Assessment Billing - VICTORIA-7 Assessment Tool: VICTORIA-7 Assessment 67494 ([id number]) PHQ-9 - 74677 - PHQ-9 Billing: Yes ([id number]) Assessment & Plan Assessment & Plan (1) Type 2 diabetes mellitus with hyperglycemia: Code(s): E11.65 - Type 2 diabetes mellitus with hyperglycemia Category: Medical Qualifiers: Diabetes mellitus food and beverage operations manager insulin use: without care home use Qualified Code(s): E11.65 - Type 2 diabetes mellitus with hyperglycemia Plan: Decrease the amount of carbohydrate intake, pasta, bread, rice and potatoes are all sugar and that is aside from all the sweet stuff, remember that fruits are good but they are Sweet also. Controlled. Present presently on Mounjaro (2) Hypercholesterolemia: Code(s): E78.00 - Pure hypercholesterolemia, unspecified Category: Medical Plan: Avoid fried foods, chicken skin, eggs, butter margarine, pastries and meat. Be it pork or beef they have a lot of cholesterol LDL goal of less than 100 and triglyceride of less than 150 on simvastatin 10 mg at bedtime (3) Hypertension: Code(s): I10 - Essential (primary) hypertension Category: Medical Qualifiers: Hypertension type: essential hypertension Qualified Code(s): I10 - Essential (primary) hypertension Plan: Continue with blood pressure medication. Decrease salt intake and exercise patient takes lisinopril 5 mg once a day (4) Leg pain, bilateral: Code(s): M79.604 - Pain in right leg; M79.605 - Pain in left leg Category: Medical Plan History of Present Illness The patient is a 54-year-old female presenting for an acute problem. The patient has a history of diabetes mellitus, which is currently controlled with medication, including Mounjaro. Her hemoglobin A1c was 5.7, indicating good control, although her fasting blood sugar was noted to be 138 mg/dL. She was previously on Ozempic but is now on Mounjaro, which she finds more effective. The patient also has hypercholesterolemia, with an LDL level of 114 mg/dL, which is above the target of less than 100 mg/dL. She is currently on simvastatin 10 mg at bedtime, and there is a plan to increase the dose to 20 mg to better manage her cholesterol levels. The patient has hypertension, managed with lisinopril 5 mg daily. She also has a history of gastroesophageal reflux disease (GERD) and nephrolithiasis, though specific management details were not discussed. The patient reports experiencing muscle cramps, particularly at night, which she associates with the use of air conditioning. She is on hydrochlorothiazide, which may contribute to the cramps due to its diuretic effect, potentially causing electrolyte imbalances. The patient denies any recent changes in physical activity that could explain the cramps. The patient has generalized anxiety disorder and has been prescribed medication by her psychiatrist, though she reports no significant improvement in symptoms. She is advised to follow up with her psychiatrist for further management. Health Maintenance - Mammogram conducted in March 2024 - Colonoscopy conducted in August 2022 Social History - Employment: Works part-time in daycare Review of Systems - Musculoskeletal: Reports muscle cramps, particularly at night, denies recent changes in physical activity - Neurological: Denies headaches, dizziness, or balance issues Physical Exam Results - Labs: Hemoglobin A1c 5.7, fasting blood sugar 138 mg/dL, LDL 114 mg/dL - Tests: Mammogram March 2024, Colonoscopy August 2022 Plan The patient's diabetes mellitus is currently well-controlled with Mounjaro, and her hemoglobin A1c is at a desirable level. However, her fasting blood sugar is slightly elevated, and continued monitoring is advised. For hypercholesterolemia, the patient's LDL level remains above the target, and the simvastatin dose will be increased to 20 mg to achieve better control. The patient should continue her current regimen and follow up for lipid panel re-evaluation. Hypertension management includes lisinopril 5 mg daily, and the patient should continue this medication. The patient is advised to monitor her blood pressure regularly. The patient reports muscle cramps, which may be related to her use of hydrochlorothiazide. She is advised to ensure adequate hydration and may consider discussing alternative medications with her healthcare provider if symptoms persist. For generalized anxiety disorder, the patient is encouraged to follow up with her psychiatrist to reassess her current treatment plan. Patient was informed and verbally consented to the use of an ambient scribe for clinic note documentation during this visit. Discussion Notes During the visit, I discussed with the patient the importance of maintaining her current diabetes management plan, as her hemoglobin A1c is well-controlled. We also reviewed her cholesterol levels and agreed to increase her simvastatin dosage to better manage her LDL levels. I advised her to continue monitoring her blood pressure and to ensure adequate hydration to help alleviate her muscle cramps. Additionally, I recommended that she follow up with her psychiatrist to evaluate her anxiety treatment plan. Patient Instructions - Continue taking Mounjaro as prescribed for diabetes management. - Increase simvastatin dose to 20 mg at bedtime for cholesterol management. - Monitor blood pressure regularly and continue lisinopril 5 mg daily. - Ensure adequate hydration to help prevent muscle cramps. - Follow up with psychiatrist for anxiety management. Orders: Orders Creatine Kinase Total Today M79.604 - Pain in right leg, M79.605 - Pain in left leg XR femur LT 2V Today M79.604 - Pain in right leg, M79.605 - Pain in left leg XR tibia fibula RT 2V Today M79.604 - Pain in right leg, M79.605 - Pain in left leg Hemoglobin A1c 3 Months E11.65 - Type 2 diabetes mellitus with hyperglycemia XR DEXA axial skeleton Today E11.65 - Type 2 diabetes mellitus with hyperglycemia, M81.0 - Age-related osteoporosis without current pathological fracture Erythrocyte Sedimentation Rate Today M79.604 - Pain in right leg, M79.605 - Pain in left leg Comprehensive Met. Panel 3 Months .65 - Type 2 diabetes mellitus with hyperglycemia Lipid Panel 3 Months E11.65 - Type 2 diabetes mellitus with hyperglycemia, E78.00 - Pure hypercholesterolemia, unspecified Medications: Changed From simvastatin 10 mg PO BEDTIME 90 tabs 1RF E78.00 - Pure hypercholesterolemia, unspecified To simvastatin change dose to 20 mg 09/2024 20 mg PO BEDTIME 30 tabs 1RF E78.00 - Pure hypercholesterolemia, unspecified From tirzepatide (Mounjaro) for 4 weeks 2.5 mg (0.5 mL) subcut QWEEK 2 mL 0RF E66.3 - Overweight To tirzepatide for 4 weeks 5 mg (0.5 mL) subcut QWEEK 2 mL 2RF E66.3 - Overweight
== END 2024-10-27 14:07 | disposition home or self-care (01) ==
LOC: HO.HMCH 12:55
PROVIDERS: PCP Internal Medicine; Visit Provider Internal Medicine
DX: E11.65 Type 2 diabetes mellitus with hyperglycemia (principal); E78.00 Pure hypercholesterolemia, unspecified; I10 Essential (primary) hypertension; M79.604 Pain in right leg; M79.605 Pain in left leg

== ENCOUNTER → 2024-10-27 12:54 | Outpatient (BNVA) | payer OTHER, SELFPAY | PROVIDERS: PCP Internal Medicine; Visit Provider Internal Medicine | DX: E11.65 Type 2 diabetes mellitus with hyperglycemia (principal); E78.00 Pure hypercholesterolemia, unspecified; I10 Essential (primary) hypertension; M79.604 Pain in right leg; M79.605 Pain in left leg; Z79.85 Long-term (current) use of injectable non-insulin antidiabetic drugs; Z79.899 Other long term (current) drug therapy; Z13.31 Encounter for screening for depression; Z13.39 Encounter for screening examination for other mental health and behavioral disorders | CPT/HCPCS: 96127; 99212 ==

== ENCOUNTER 2024-11-03 14:26 | Outpatient (REF) | payer OTHER, SELFPAY ==
--- NOTE | ~2024-11-03 | XR_ITS ---
EXAMINATION: XR TIBIA AND FIBULA, RIGHT CLINICAL INFORMATION: M79.604 - Pain in right leg COMPARISON: None available. TECHNIQUE: AP and lateral views of the right tibia and fibula were obtained. FINDINGS: No acute cortical disruption. No lytic or blastic lesions. Joint space narrowing involving medial to a lesser extent lateral compartments of the left knee. XR/XR tibia fibula RT 2V IMPRESSION: No acute fracture. Bicompartmental osteoarthrosis, left knee. Electronically signed by: Chapito Naranjo MD 11/03/2024 03:23 PM EDT
--- NOTE | ~2024-11-03 | XR_ITS ---
EXAMINATION: XR FEMUR, LEFT CLINICAL INFORMATION: M79.604 - Pain in left leg COMPARISON: None available. TECHNIQUE: AP and lateral views of the left femur were obtained. FINDINGS: No acute cortical disruption. No lytic or blastic lesions. Joint space narrowing involving the medial and to a lesser extent lateral compartment of the left knee. XR/XR femur LT 2V IMPRESSION: No acute fracture. Bicompartmental osteoarthrosis, left knee. Electronically signed by: Chapito Naranjo MD 11/03/2024 03:22 PM EDT
--- OUTSIDE RECORDS SUMMARY | 2024-11-03 14:28 | XMS_ITS | Clinical Summary ---
Author Organization [facility] Address [address] [place] [address] Care Team Providers Care Housekeeping Laundry Worker Name Role Phone Jamal Oliva MD Primary Care Provider [phone] Surgical History Surgery Date Site/Laterality Comments TUBAL LIGATION PROCEDURE: HISTORICAL TUBAL LIGATION OTHER SURGICAL HISTORY PROCEDURE: [place] COLONOSCOPY FLX W/ENDOSCOPIC MUCOSAL RESECTION COLONOSCOPY 11/20/2020 [...] age to complete this topic Care Teams Housekeeping Laundry Worker Relationship Specialty Start Date End Date Jamal Oliva MD [address] [place] [address] [address] [facility] [place] [address] PCP - General Internal Medicine 03/01/19
== END 2024-11-03 14:27 | disposition home or self-care (01) ==
LOC: HO.XRAY 14:26
PROVIDERS: PCP Internal Medicine; Visit Provider Internal Medicine
DX: M79.604 Pain in right leg (principal); M79.605 Pain in left leg
CPT/HCPCS: 73552; 73590

== ENCOUNTER → 2024-11-03 14:33 | Outpatient (BNV) | payer OTHER, SELFPAY | PROVIDERS: PCP Internal Medicine; Visit Provider Radiology Diagnostic Radiology | DX: M17.12 Unilateral primary osteoarthritis, left knee (principal); M79.604 Pain in right leg | CPT/HCPCS: 73552; 73590 ==

== ENCOUNTER 2024-12-18 13:25 | Outpatient (AMB) | payer OTHER, SELFPAY ==
--- NOTE | 2024-12-18 13:40 | A.OFFPC_ITS ---
Vital Signs 12/18/24 13:41 Height 5 ft 7 in Weight 172 lb 6 oz BMI 27.0 BP 118/70 Blood Pressure Location Lt brachial Position Sitting Pulse 74 Pulse Source Pulse Oximeter Temp 97.3 F Temp Source Temporal Artery Scan Pulse Oximetry (%) 99 Oxygen Delivery Method Room Air Intake Visit Reasons: DM Allergies morphine (MORPHINE) Allergy (Severe, Verified 12/18/24 13:44) REDNESS, RASH, ITCHING, rash metformin Adverse Reaction (Intermediate, Verified 12/18/24 13:44) constipation Medication List - Last Reconciled 12/18/24 by Jamal Oliva MD alprazolam (Xanax) 0.5 mg PO BID PRN compress.stocking,knee,reg,med As directed 20-30 mm HG desonide 0.05% 1 appl topical DAILY hydrochlorothiazide 12.5 mg PO DAILY hydrocortisone 2.5% (Proctosol HC) 1 appl ME BID-QID PRN lactobacillus combination no.4 (Probiotic) 1 lisinopril 5 mg PO DAILY nicotine (polacrilex) 4 mg buccal Q2H omeprazole 20 mg PO DAILY simvastatin 20 mg PO BEDTIME topiramate 25 mg PO BEDTIME zolpidem 5 mg PO BEDTIME 90 days Tobacco use date assessed: 12/18/24 Dental Screening Dental Screen Date: 12/18/24 Did you have a dental visit in the last 12 months?: Yes Did you have a dental problem in the last 6 months where you did not have access to dental care?: No Was dental information given to patient?: Patient has dentist [facility] Medical History Right hip pain Bilateral hand pain Diabetes mellitus type 2, controlled, without complications Type 2 diabetes mellitus with hyperglycemia History of renal calculi GERD (gastroesophageal reflux disease) Insomnia Obesity (BMI 30-39.9) Hypertension Hypercholesterolemia Tobacco abuse Surgical History H/O colonoscopy Hx of abdominal surgery History of kidney surgery History of tubal ligation Diverticulitis Family History Father Hypertension Mother Colon cancer Diabetes Sister Diabetes Lymphoma Family/Other Mental health disorder Social History Household Members: Spouse and Children Housing: House Are you a primary acute care physician to a significant other at home: No Do you presently have visiting nurse or other home services: No Alcohol intake: current Alcohol intake frequency: holidays/special occasions only Patient Tobacco Use Status: Never used Tobacco Tobacco use type: Smokeless Tobacco Years Smoked: 2004 but vaping e-Cigarette/Vaping Use: Currently Using Second Hand Smoke Exposure: No service: No Current occupational status: employed Current occupational exposures/hazards: No Cognitive needs: No Hearing needs: No Vision needs: Yes Questionnaire PHQ-9 Over the last 2 weeks, how often have you been bothered by any of the following problems? 1. Little interest or pleasure in doing things: not at all 2. Feeling down, depressed, or hopeless: not at all 3. Trouble falling or staying asleep, or sleeping too much: not at all 4. Feeling tired or having little energy: not at all 5. Poor appetite or overeating: not at all 6. Feeling bad about yourself - or that you are a failure or have let yourself or your family down: not at all 7. Trouble concentrating on things, such as reading the newspaper or watching television: nearly every day 8. Moving or speaking so slowly that other people could have noticed. Or the opposite - being so fidgety or restless that you have been moving around a lot more than usual: not at all 9. Thoughts that you would be better off or of hurting yourself in some way: not at all Total score: 3 Depression Screening Interpretation: Negative Depression Screening Done: Yes Source: Developed by Drs. Shorty Chin, Carmen Ramon, Zachary Schuster and colleagues, with an educational greg from [employer]. Thrive Questionnaire Date Thrive assessed: 10/27/24 I am a: Patient What is your living situation today?: I have a steady place to live Within the past 12 months, did the food you bought not last and you didn't have the money to get more?: I choose not to answer this question Within the past 12 months, did you worry whether your food would run out before you got money to buy more?: Often true Do you have trouble paying for medicines?: I choose not to answer this question Do you have trouble getting transportation to medical appointments?: I choose not to answer this question Do you have trouble paying your heating and electricity bill?: Yes Do you have trouble taking care of your child, family member or friend?: No Do you have trouble with day-to-day activities such as bathing, preparing meals, shopping, managing finances, etc.?: No Are you currently unemployed and looking for a job?: No Are you interested in more education?: No Please select the resources that you would like help with: None Currently or been in a relationship where the following occur: I choose not to answer THRIVE Score: 2 AUDIT C Alcohol Use Questionnaire (AUDIT-C) 1. How often do you have a drink containing alcohol?: Never 3. How often do you have six or more drinks on one occasion?: Never Total Score: 0 VICTORIA-7 AMB Questionnaire VICTORIA-7 Date VICTORIA - 7 assessed: 10/27/24 Feeling nervous, anxious, or on edge: 3 = Nearly every day Not being able to stop or control worryin = Several days Worrying too much about different things: 1 = Several days Trouble relaxin = Nearly every day Being so restless that it is hard to sit still: 3 = Nearly every day Becoming easily annoyed or irritable: 1 = Several days Feeling afraid as if something awful might happen: 0 = Not at all Total VICTORIA-7 score (0-4 normal; 5-9 mild; 10-14 moderate; 15-21 severe): 12 Source: Developed by Drs. Shorty Chin, Carmen Ramon, Zachary Schuster and colleagues, with an educational greg from [employer]. Physical exam (Primary Care) Vital Signs: Last Vital Signs Temp 97.3 F 12/18/24 13:41 Pulse 74 12/18/24 13:41 BP 118/70 12/18/24 13:41 Pulse Ox 99 12/18/24 13:41 Oxygen Delivery Method Room Air 12/18/24 13:41 BMI result Body Mass Index 27.0 Tobacco/Smoking Status: Tobacco use Status Tobacco use date assessed 12/18/24 12/18/24 13:47 Patient Tobacco Use Status Never used Tobacco 12/18/24 13:47 Tobacco use type Smokeless Tobacco 12/18/24 13:47 e-Cigarette/Vaping Use Currently Using 12/18/24 13:47 PHQ-9: PHQ-9 Score PHQ-9: Total score 3 12/18/24 13:47 Depression Screening Interpretation: Negative Thrive Assessment: Date of Thrive Assessment Date Thrive assessed 10/27/24 12/18/24 13:47 Currently or been in a relationship where the following occur: I choose not to a nswer Const General: alert; No acute distress Eyes Conjunctivae: conjunctivae normal Resp Auscultation: clear to auscultation bilaterally Cardio Rate: regular rate Rhythm: regular rhythm GI Inspection: Yes normal to inspection Extrem General: Yes normal to inspection and No edema Results AMB Hemoglobin A1c AMB Hemoglobin A1c 5.4 % Last Edit by Sneha Kapadia CMA on 12/18/24 13:52 Results Reviewed Results Reviewed: Laboratory Last Values Hgb A1c (Clinic) 5.4 % (4.0-6.0) 12/18/24 13:47 Coding Level of Care Code Est Pt Level 4 (19050) Complex EM visit Add On G2211 Diagnoses Type 2 diabetes mellitus with hyperglycemia, without long-term current use of insulin E11.65 Diabetes mellitus prison insulin use: without intermediate designer use Hypercholesterolemia E78.00 Essential hypertension I10 Hypertension type: essential hypertension Generalized anxiety disorder with panic attacks F41.1; F41.0 Gastroesophageal reflux disease, unspecified whether esophagitis present K21.9 Esophagitis presence: esophagitis presence not specified Current every day vaping Z72.89 Assessment & Plan Assessment & Plan (1) Type 2 diabetes mellitus with hyperglycemia: Code(s): E11.65 - Type 2 diabetes mellitus with hyperglycemia Category: Medical Qualifiers: Diabetes mellitus prison insulin use: without prison use Qualif ied Code(s): E11.65 - Type 2 diabetes mellitus with hyperglycemia Plan: Decrease the amount of carbohydrate intake, pasta, bread, rice and potatoes are all sugar and that is aside from all the sweet stuff, remember that fruits are good but they are Sweet also. Hemoglobin A1c goal of less than 6.5. Patient is diet controlled (2) Hypercholesterolemia: Code(s): E78.00 - Pure hypercholesterolemia, unspecified Category: Medical Plan: Avoid fried foods, chicken skin, eggs, butter margarine, pastries and meat. Be it pork or beef they have a lot of cholesterol LDL goal of less than 100 and triglyceride of less than 150 on simvastatin 20 mg at bedtime patient needs a repeat blood work (3) Hypertension: Code(s): I10 - Essential (primary) hypertension Category: Medical Qualifiers: Hypertension type: essential hypertension Qualified Code(s): I10 - Essential (primary) hypertension Plan: Continue with blood pressure medication. Decrease salt intake and exercise continue with lisinopril 5 mg once a day (4) Generalized anxiety disorder with panic attacks: Code(s): F41.1 - Generalized anxiety disorder; F41.0 - Panic disorder [episodic paroxysmal anxiety] Category: Medical Plan: Continue with alprazolam as needed on Topamax zolpidem (5) GERD (gastroesophageal reflux disease): Code(s): K21.9 - Gastro-esophageal reflux disease without esophagitis Category: Medical Qualifiers: Esophagitis presence: esophagitis presence not specified Qualified Code(s): K21.9 - Gastro-esophageal reflux disease without esophagitis Plan: Avoid the foods that causes that usually spicy foods, tomato products, juices, coffee, soda and foods that your sensitive to. After eating do not lie down, allow 3-4 hours before in lie down. And keep the head of bed above 30 degrees to avoid the acid from going up. (6) Current every day vaping: Code(s): Z72.89 - Other problems related to lifestyle Category: Social Hx Plan: dsicussion on the need to stop. Plan History of Present Illness The patient is a 54-year-old female presenting for a follow-up visit. She has a history of hypertension, hypercholesterolemia, insomnia, gastroesophageal reflux disease, nephrolithiasis, diabetes mellitus, and generalized anxiety disorder. The patient reports a recent weight gain of 6 pounds and has been managing her diabetes with diet control, aiming for a hemoglobin A1c goal of less than 6.5%. Her last hemoglobin A1c was 5.7%, and her blood sugar was 138 mg/dL in August 2024. The patient's cholesterol management includes an LDL goal of less than 100 mg/dL, with her last LDL recorded at 114 mg/dL. She is currently on simvastatin 20 mg. Her blood pressure is managed with lisinopril 5 mg daily. She also takes alprazo lee as needed for anxiety and is on Topamax and Zolpidem for insomnia. The patient has a history of osteoarthritis in the left knee, confirmed by a leg x-ray. Preventative care includes a mammogram in March 2024 and a colonoscopy in September 2024. Health Maintenance - Mammogram completed in March 2024 - Colonoscopy completed in September 2024 - Blood work in August 2024 showed normal blood count, normal electrolytes, and good renal function - Liver function tests were normal, but LDL cholesterol was elevated at 114 mg/dL Social History - Substance Use: Patient reports vaping, which she is attempting to quit. Review of Systems - General: Reports weight gain of 6 pounds - Musculoskeletal: Reports osteoarthritis in the left knee Physical Exam Results - Labs: Blood work in August 2024 showed normal blood count, normal electrolytes, and good renal function - Labs: Blood sugar was 138 mg/dL with a hemoglobin A1c of 5.7% - Labs: LDL cholesterol was elevated at 114 mg/dL - Imaging: Leg x-ray revealed osteoarthritis of the left knee Plan Patient was informed and verbally consented to the use of an ambient scribe for clinic note documentation during this visit. 1. Hypertension The patient's hypertension is managed with lisinopril 5 mg daily. 2. Hypercholesterolemia The patient is on simvastatin 20 mg, with an LDL goal of less than 100 mg/dL. 3. Diabetes Mellitus The patient's diabetes is diet-controlled with a hemoglobin A1c goal of less than 6.5%. 4. Osteoarthritis Of The Left Knee The patient has osteoarthritis in the left knee, confirmed by x-ray. 5. Generalized Anxiety Disorder The patient takes alprazolam as needed for anxiety. 6. Insomnia The patient is on Topamax and Zolpidem for insomnia management. 7. Gastroesophageal Reflux Disease (Gerd) The patient requested a refill for omeprazole for GERD management. Discussion Notes Patient Instructions - Continue lisinopril 5 mg daily for blood pressure management. - Take simvastatin 20 mg as prescribed for cholesterol management. - Follow a diet plan to maintain hemoglobin A1c below 6.5%. - Use alprazolam as needed for anxiety. - Take Topamax and Zolpidem for insomnia as prescribed. - Refill omeprazole for GERD management. - Schedule repeat blood work in January for cholesterol monitoring. Orders: Orders AMB Hemoglobin A1c Today Z13.9 - Encounter for screening, unspecified Medications: New tirzepatide (Mounjaro) for 4 weeks 2.5 mg (0.5 mL) subcut QWEEK 2 mL 0RF Refilled omeprazole 20 mg PO DAILY 90 caps 1RF K21.9 - Gastro-esophageal reflux disease without esophagitis
[2024-12-18 13:41] VITALS: BP 118/70; PULSE 74; TEMP 36.3; O2SAT 99; BMI 27.0
== END 2024-12-18 14:00 | disposition home or self-care (01) ==
LOC: HO.HMCH 13:26
PROVIDERS: PCP Internal Medicine; Visit Provider Internal Medicine
DX: E11.65 Type 2 diabetes mellitus with hyperglycemia (principal); E78.00 Pure hypercholesterolemia, unspecified; I10 Essential (primary) hypertension; F41.1 Generalized anxiety disorder; F41.0 Panic disorder [episodic paroxysmal anxiety]; K21.9 Gastro-esophageal reflux disease without esophagitis; Z72.89 Other problems related to lifestyle; Z13.9 Encounter for screening, unspecified

== ENCOUNTER → 2024-12-18 13:25 | Outpatient (BNVA) | payer OTHER, SELFPAY | PROVIDERS: PCP Internal Medicine; Visit Provider Internal Medicine | DX: E11.65 Type 2 diabetes mellitus with hyperglycemia (principal); E78.00 Pure hypercholesterolemia, unspecified; I10 Essential (primary) hypertension; F41.1 Generalized anxiety disorder; F41.0 Panic disorder [episodic paroxysmal anxiety]; K21.9 Gastro-esophageal reflux disease without esophagitis; G47.00 Insomnia, unspecified; M17.12 Unilateral primary osteoarthritis, left knee; Z72.89 Other problems related to lifestyle | CPT/HCPCS: 83036; 99212 ==

== ENCOUNTER 2024-12-21 13:43 | Outpatient (AMB) | payer OTHER, SELFPAY ==
--- NOTE | 2024-12-21 13:48 | A.OFFVIS_ITS ---
Vital Signs 12/21/24 13:54 Height 5 ft 7 in Weight 171 lb 15.369 oz BMI 26.9 BP 114/78 Blood Pressure Location Rt brachial Position Sitting Pulse 64 Pulse Source Pulse Oximeter Pulse Oximetry (%) 100 Oxygen Delivery Method Room Air Intake Visit Reasons: Type 2 diabetes mellitus with hyperglycemia Intake Note: NEW Patient presents today to establish treatment for Type 2 Diabetes Mellitus: Last Diabetic eye exam was on: DUE, patient needs a referral Last Podiatry exam was on: Patient does not see a Business Test Analyst Most recent HbA1c: 5.4%, 12/18/2024 Random Glucose: 64 mg/dL Re-check Random Glucose: 95 mg/dL Orderlies Teacher Required: No Accompanied by: Self / Same As Patient Allergies morphine (MORPHINE) Allergy (Severe, Verified 12/21/24 13:55) REDNESS, RASH, ITCHING, rash metformin Adverse Reaction (Intermediate, Verified 12/21/24 13:55) constipation HPI Comments Details: 54 year old female presenting for DM2 Medical history: HTN, GERD, intestinal obstruction Diagnosed in 1999 Micro and macrovascular complications: none Diabetes medications: Mounjaro 2.5mg weekly for the past 8 weeks Previously on ozempic-not covered anymore. Januvia was too expensive. Intolerant metformin 2/2 GI side effects Sister and mom were diabetics Prior medication: metformin-intolerant 2/2 GI SE Symptoms reported: numbness, tingling, cramping in lower extremities Hypoglycemia: denies, but she is low today and treated Hyperglycemia: + urinary frequency, denies nocturia, Blood glucose monitoring: checks fasting am. Diet: Breakfast: rice cake with peanut butter or fruit, Lunch: scrambled egg with vegetables Dinner: salad with chicken , Snacks: fruit , Drinks throughout day: water, 1 coffee in am, 1 dominik tea She does skip meals on the day she is working Exercise: walking 1 hour (-Wednesday) Superintendent Maintenance - CDE education: denies Business Test Analyst: no Last ophthalmology evaluation: due Other specialists: director of software development [facility] Medical History Right hip pain Bilateral hand pain Diabetes mellitus type 2, controlled, without complications Type 2 diabetes mellitus with hyperglycemia History of renal calculi GERD (gastroesophageal reflux disease) Insomnia Obesity (BMI 30-39.9) Hypertension Hypercholesterolemia Tobacco abuse Surgical History H/O colonoscopy Hx of abdominal surgery History of kidney surgery History of tubal ligation Diverticulitis Family History Father Hypertension Mother Colon cancer Diabetes Sister Diabetes Lymphoma Family/Other Mental health disorder Social History Household Members: Spouse and Children Housing: House Are you a primary customer care associate to a significant other at home: No Do you presently have visiting nurse or other home services: No Alcohol intake: current Alcohol intake frequency: holidays/special occasions only Patient Tobacco Use Status: Never used Tobacco Tobacco use type: Smokeless Tobacco Years Smoked: 2004 but vaping e-Cigarette/Vaping Use: Currently Using Second Hand Smoke Exposure: No service: No Current occupational status: employed Current occupational exposures/hazards: No Cognitive needs: No Hearing needs: No Vision needs: Yes Physical Exam Vital Signs: Last Vital Signs Pulse 64 12/21/24 13:54 BP 114/78 12/21/24 13:54 Pulse Ox 100 12/21/24 13:54 Oxygen Delivery Method Room Air 12/21/24 13:54 BMI result Body Mass Index 26.9 Results Reviewed Results Reviewed: Laboratory Last Values Glucose (Clinic) 95 mg/dL (60-115) 12/21/24 14:20 Assessment & Plan Assessment & Plan (1) Type 2 diabetes mellitus with hyperglycemia: Code(s): E11.65 - Type 2 diabetes mellitus with hyperglycemia Category: Medical Qualifiers: Diabetes mellitus manager intermediate insulin use: without manager intermediate use Qualified Code(s): E11.65 - Type 2 diabetes mellitus with hyperglycemia (2) Overweight (BMI 25.0-29.9): Code(s): E66.3 - Overweight Category: Medical Plan Type 2 diabetes, controlled Increase mounjaro 5mg daily for optimized glycemic control Discussed that she needs to avoid skipping meals, always have glucose tabs, snacks on hand Treat hypoglycemia by rules of 15s She can return in 3 months or sooner as needed Orders: Referrals Ophthalmology Referral E11.65 - Type 2 diabetes mellitus with hyperglycemia Medications: New tirzepatide (Mounjaro) 5 mg (0.5 mL) subcut QWEEK 6 mL 3RF E11.65 - Type 2 diabetes mellitus with hyperglycemia Discontinued tirzepatide (Mounjaro) for 4 weeks Discontinued Reason: Doctor's Order 2.5 mg (0.5 mL) subcut QWEEK 2 mL 0RF Coding Level of Care Code Est Pt Level 4 (45995) Diagnoses Type 2 diabetes mellitus with hyperglycemia, without long-term current use of insulin E11.65 Diabetes mellitus penitentiary insulin use: without manager intermediate use Overweight (BMI 25.0-29.9) E66.3
[2024-12-21 13:54] VITALS: BP 114/78; PULSE 64; O2SAT 100; BMI 26.9
[2024-12-21 14:03] LABS: Glucose, Whole Blood 64 mg/dL (60-115)
[2024-12-21 14:23] LABS: Glucose, Whole Blood 95 mg/dL (60-115)
== END 2024-12-21 14:24 | disposition home or self-care (01) ==
LOC: HO.ENCR 13:43
PROVIDERS: PCP Internal Medicine; Visit Provider Internal Medicine
DX: E11.65 Type 2 diabetes mellitus with hyperglycemia (principal); E66.3 Overweight

== ENCOUNTER → 2024-12-21 13:43 | Outpatient (BNVA) | payer OTHER, SELFPAY | PROVIDERS: PCP Internal Medicine; Visit Provider Internal Medicine | DX: E11.65 Type 2 diabetes mellitus with hyperglycemia (principal); E66.3 Overweight | CPT/HCPCS: 82947; 99212 ==

== ENCOUNTER 2025-02-12 14:12 | Outpatient (AMB) | payer OTHER, SELFPAY ==
[2025-02-12 14:33] VITALS: BP 110/90; PULSE 88; TEMP 36.8; O2SAT 94; BMI 26.2
--- NOTE | 2025-02-12 14:33 | A.OFFPC_ITS ---
Vital Signs 02/12/25 14:33 02/12/25 15:03 Height 5 ft 7 in Weight 167 lb 8 oz BMI 26.2 BP 110/90 H 110/80 Blood Pressure Location Lt brachial Lt brachial Position Sitting Sitting Pulse 88 Pulse Source Pulse Oximeter Temp 98.3 F Temp Source Temporal Artery Scan Pulse Oximetry (%) 94 Oxygen Delivery Method Room Air Intake Visit Reasons: annual exam Allergies morphine (MORPHINE) Allergy (Severe, Verified 02/12/25 14:52) REDNESS, RASH, ITCHING, rash metformin Adverse Reaction (Intermediate, Verified 02/12/25 14:52) constipation Medication List - Last Reconciled 02/12/25 by Magdalene William PA-C alprazolam (Xanax) 0.5 mg PO BID PRN compress.stocking,knee,reg,med As directed 20-30 mm HG desonide 0.05% 1 appl topical DAILY hydrochlorothiazide 12.5 mg PO DAILY hydrocortisone 2.5% (Proctosol HC) 1 appl MO BID-QID PRN lactobacillus combination no.4 (Probiotic) 1 lisinopril 5 mg PO DAILY nicotine (polacrilex) 4 mg buccal Q2H omeprazole 20 mg PO DAILY simvastatin 20 mg PO BEDTIME tirzepatide (Mounjaro) 5 mg (0.5 mL) subcut QWEEK topiramate 25 mg PO BEDTIME zolpidem 5 mg PO BEDTIME 90 days Tobacco use date assessed: 12/18/24 Dental Screening Dental Screen Date: 12/18/24 Did you have a dental visit in the last 12 months?: Yes Did you have a dental problem in the last 6 months where you did not have access to dental care?: No Was dental information given to patient?: Patient has dentist HPI annual exam HPI Details 55 year old female with past medical his tory of hypercholesterolemia, HTN, insomnia, GERD, diabetes mellitus, VICTORIA, PVD last seen 11/2024 coming in for annual exam. In review of the notes, patient was seen by cesar 11/2024 Areli nicolas as increased and f/u in 3 months. Presenting for an annual physical exam. Patient is feeling generally well and has no acute concerns today. mammogram: 03/2024 colonoscopy: 09/2024 pap smear: [place] vaccines: PCV and chingles UTD and flu given today PFSH Medical History Right hip pain Bilateral hand pain Diabetes mellitus type 2, controlled, without complications Type 2 diabetes mellitus with hyperglycemia History of renal calculi GERD (gastroesophageal reflux disease) Insomnia Obesity (BMI 30-39.9) Hypertension Hypercholesterolemia Tobacco abuse Surgical History H/O colonoscopy Hx of abdominal surgery History of kidney surgery History of tubal ligation Diverticulitis Family History Father Hypertension Mother Colon cancer Diabetes Sister Diabetes Lymphoma Family/Other Mental health disorder Social History Household Members: Spouse and Children Housing: House Are you a primary career services assistant to a significant other at home: No Do you presently have visiting nurse or other home services: No Alcohol intake: current Alcohol intake frequency: holidays/special occasions only Patient Tobacco Use Status: Never used Tobacco Tobacco use type: Smokeless Tobacco Years Smoked: 2004 but vaping e-Cigarette/Vaping Use: Currently Using Second Hand Smoke Exposure: No service: No Current occupational status: employed Current occupational exposures/hazards: No Cognitive needs: No Hearing needs: No Vision needs: Yes Questionnaire PHQ-9 Over the last 2 weeks, how often have you been bothered by any of the following problems? 1. Little interest or pleasure in doing things: not at all 2. Feeling down, depressed, or hopeless: not at all 3. Trouble falling or staying asleep, or sleeping too much: not at all 4. Feeling tired or having little energy: not at all 5. Poor appetite or overeating: not at all 6. Feeling bad about yourself - or that you are a failure or have let yourself or your family down: not at all 7. Trouble concentrating on things, such as reading the newspaper or watching television: nearly every day 8. Moving or speaking so slowly that other people could have noticed. Or the opposite - being so fidgety or restless that you have been moving around a lot more than usual: not at all 9. Thoughts that you would be better off or of hurting yourself in some way: not at all Total score: 3 Depression Screening Interpretation: Negative Depression Screening Done: Yes Source: Developed by Drs. Shorty Chin, Carmen Ramon, Zachary Schuster and colleagues, with an educational greg from [employer]. Thrive Questionnaire Date Thrive assessed: 08/18/24 I am a: Patient What is your living situation today?: I have a steady place to live Within the past 12 months, did the food you bought not last and you didn't have the money to get more?: I choose not to answer this question Within the past 12 months, did you worry whether your food would run out before you got money to buy more?: Often true Do you have trouble paying for medicines?: I choose not to answer this question Do you have trouble getting transportation to medical appointments?: I choose not to answer this question Do you have trouble paying your heating and electricity bill?: Yes Do you have trouble taking care of your child, family member or friend?: No Do you have trouble with day-to-day activities such as bathing, preparing meals, shopping, managing finances, etc.?: No Are you currently unemployed and looking for a job?: No Are you interested in more education?: No Please select the resources that you would like help with: None Currently or been in a relationship where the following occur: I choose not to answer THRIVE Score: 2 AUDIT C Alcohol Use Questionnaire (AUDIT-C) 1. How often do you have a drink containing alcohol?: Never 3. How often do you have six or more drinks on one occasion?: Never Total Score: 0 VICTORIA-7 AMB Questionnaire VICTORIA-7 Date VICTORIA - 7 assessed: 10/27/24 Feeling nervous, anxious, or on edge: 3 = Nearly every day Not being able to stop or control worryin = Several days Worrying too much about different things: 1 = Several days Trouble relaxin = Nearly every day Being so restless that it is hard to sit still: 3 = Nearly every day Becoming easily annoyed or irritable: 1 = Several days Feeling afraid as if something awful might happen: 0 = Not at all Total VICTORIA-7 score (0-4 normal; 5-9 mild; 10-14 moderate; 15-21 severe): 12 Source: Developed by Drs. Shorty Chin, Carmen Ramon, Zachary Schuster and colleagues, with an educational greg from [employer]. VICTORIA-7 Assessment Billing VICTORIA-7 Assessment Tool: VICTORIA-7 Assessment 15947 Review of Systems Const Denies body aches, Denies fatigue, Denies fever(s), Denies frequent falls, Denies headache(s) and Denies weakness Eyes Reports no additional complaints and Denies change in vision ENT Denies dysphagia, Denies dizziness, Denies facial pain, Denies headache(s), Denies nasal congestion and Denies odynophagia Card Denies chest pain, Denies syncope, Denies irregular heart rhythm, Denies leg edema, Denies lightheadedness and Denies dyspnea Resp Denies cough and Denies dyspnea GI Denies constipation, Denies dysphagia, Denies dyspepsia, Denies diarrhea, Denies nausea, Denies odynophagia and Denies vomiting Denies urinary frequency, Denies dysuria, Denies urinary hesitancy and Denies urinary urgency Musc Denies back pain and Denies myalgias Skin/Breast Reports system reviewed and no additional complaints, except as documented Neuro Denies dizziness, Denies syncope, Denies frequent falls, Denies headache(s) and Denies weakness Psych Reports no additional complaints Endo Denies fatigue Physical exam (Primary Care) Vital Signs: Last Vital Signs Temp 98.3 F 02/12/25 14:33 Pulse 88 02/12/25 14:33 BP 110/80 02/12/25 15:03 Pulse Ox 94 02/12/25 14:33 Oxygen Delivery Method Room Air 02/12/25 14:33 BMI result Body Mass Index 26.2 Tobacco/Smoking Status: Tobacco use Status Tobacco use date assessed 12/18/24 02/12/25 14:41 Patient Tobacco Use Status Never used Tobacco 02/12/25 14:41 Tobacco use type Smokeless Tobacco 02/12/25 14:41 e-Cigarette/Vaping Use Currently Using 02/12/25 14:41 PHQ-9: PHQ-9 Score PHQ-9: Total score 3 02/12/25 15:27 Depression Screening Interpretation: Negative Thrive Assessment: Date of Thrive Assessment Date Thrive assessed 08/18/24 02/12/25 14:41 Currently or been in a relationship where the following occur: I choose not to answer Const General: cooperative, healthy appearing, comfortable and no acute distress Orientation/consciousness: patient oriented x3 HENIL Head: Yes normocephalic Ears: hearing grossly normal bilaterally, external ears normal, TM's normal bilaterally and EAC's normal General nose exam: Normal external nose present Face and sinus: Yes normal facial exam and Yes sinuses nontender Mouth: Normal oral and palatal mucosa present and tongue normal Throat: Yes posterior oropharynx normal Eyes General: appearance normal, both eyes and all related structures Conjunctivae: conjunctivae normal Pupils: Equal, round and reactive pupils present EOM: EOMs intact bilaterally and No Nystagmus present Neck Neck: Yes normal visual inspection, Yes full ROM and Yes no lymphadenopathy Chest Chest palpation & inspection: normal inspection of the chest Resp Effort & Inspection: normal respiratory effort Auscultation: clear to auscultation bilaterally, no crackles, no rales, no rhonchi, no wheezes and breath sounds present Cardio Rate: regular rate Rhythm: regular rhythm Peripheral pulses: radial pulses present and dorsalis pedis present GI Inspection: Yes normal to inspection and No Abdominal wall edema Palpation (GI): Soft to palpation, not firm and nontender Auscultation: normal bowel sounds Rectal Exam - Female: deferred General: Yes no CVA tenderness Back/Spine/Pelvis Back: no CVA tenderness Skin General skin exam: no rashes or lesions noted Neuro General: patient oriented x3 Cranial nerves: Yes Equal, round and reactive pupils present, Yes Midline tongue present, Yes Ability to bilaterally elevate shoulders present and No Nystagmus present Gait exam (Neuro): Normal gait present Extrem General: Yes normal to inspection, Yes full ROM, No no pedal edema and No edema Psych Speech and movement: Normal speech and movement present Affect: normal affect Insight: Good insight present (Psych) Judgement: Good judgement present (Psych) Office Procedures Flu Questionnaire Does the patient have a severe egg allergy?: No Does the patient have severe life threatening allergies?: No Does the patient have a fever or illness today?: No Has the patient ever had Guillain-[place] Syndrome?: No Has the patient ever had any past reaction to a flu shot?: No Immunizations Fluarix 1512-2624 (PF) 45 mcg (15 mcg x 3)/0.5 mL IM syringe Performing Provider: Magdalene William PA-C Performing Location: [facility] Administered by: JHONNY Galicia on 02/12/25 15:25 Dose Route Admin Location Dispensed Lot Number Expiration Date NDC Language Path 0.5 mL IM Left Deltoid 0.5 mL [id number] 09/25/25 [id number] GLAXO SMITHKLINE VIS Given Date VIS Provided VIS Publication Date 02/12/25 Single Vaccine 24 Eligibility Eligibility Date Funding Source Not VFC Eligible 02/12/25 Private Tenivac (PF) 5 Lf unit-2 Lf unit/0.5 mL intramuscular syringe Performing Provider: Magdalene William PA-C Performing Location: [facility] Administered by: JHONNY Galicia on 02/12/25 15:25 Dose Route Admin Location Dispensed Lot Number Expiration Date ND Language Path 0.5 mL IM Left Deltoid 0.5 mL [id number] 11/27/26 [id number] [employer]PA[employer] Total Dispensed Waste 0.5 mL 0 % VIS Given Date VIS Provided VIS Publication Date 02/12/25 Single Vaccine 20 Eligibility Eligibility Date Funding Source Not VFC Eligible 02/12/25 Private Coding Level of Care Code Est Pt Prev Care 40-64y(88645) Diagnoses Annual physical exam Z00.00 Generalized anxiety disorder with panic attacks F41.1; F41.0 Essential hypertension I10 Hypertension type: essential hypertension Hypercholesterolemia E78.00 Type 2 diabetes mellitus with hyperglycemia, without long-term current use of insulin E11.65 Diabetes mellitus termite renewal inspector insulin use: without termite renewal inspector use Obesity (BMI 30-39.9) E66.9 Gastroesophageal reflux disease, unspecified whether esophagitis present K21.9 Esophagitis presence: esophagitis presence not specified Insomnia G47.00 Additional Codes VICTORIA-7 Assessment Billing - VICTORIA-7 Assessment Tool: VICTORIA-7 Assessment 51125 ([id number]) Assessment & Plan Assessment & Plan (1) Annual physical exam: Code(s): Z00.00 - Encounter for general adult medical examination without abnormal findings Category: Medical Plan: Patient is up-to-date on all recommended routine screenings and vaccinations for her age. Healthy diet and regular exercise is encouraged. Blood work is up-to- date has been reviewed with the patient today. Tetanus and flu vaccine given today (2) Generalized anxiety disorder with panic attacks: Code(s): F41.1 - Generalized anxiety disorder; F41.0 - Panic disorder [episodic paroxysmal anxiety] Category: Medical Plan: She feels good on current medication regimen. Declines counseling today. (3) Hypertension: Code(s): I10 - Essential (primary) hypertension Category: Medical Qualifiers: Hypertension type: essential hypertension Qualified Code(s): I10 - Essential (primary) hypertension Plan: Continue on current blood pressure medication. Avoid salt intake and encourage healthy diet and regular exercise. (4) Hypercholesterolemia: Code(s): E78.00 - Pure hypercholesterolemia, unspecified Category: Medical Plan: Avoid foods that are high in cholesterol such as red meat, fried foods, eggs and baked goods. Triglyceride goal of less than 150 and LDL goal of less than 100. (5) Type 2 diabetes mellitus with hyperglycemia: Code(s): E11.65 - Type 2 diabetes mellitus with hyperglycemia Category: Medical Qualifiers: Diabetes mellitus [facility] insulin use: without termite renewal inspector use Qualified Code(s): E11.65 - Type 2 diabetes mellitus with hyperglycemia Plan: Decrease the amount of carbohydrates such as pasta, bread, rice, and potatoes and limit the amount of sweets. Although fruits are generally healthy they should be eaten in moderation as they are still high in sugar. Hemoglobin A1c goal of less than 7%. Continue with endo (6) Obesity (BMI 30-39.9): Code(s): E66.9 - Obesity, unspecified Category: Medical Plan: Healthy diet and regular exercise is encouraged. (7) GERD (gastroesophageal reflux disease): Code(s): K21.9 - Gastro-esophageal reflux disease without esophagitis Category: Medical Qualifiers: Esophagitis presence: esophagitis presence not specified Qualified Code(s): K21.9 - Gastro-esophageal reflux disease without esophagitis Plan: Avoid trigger foods such as citrus, tomato products, soda, caffeine, spicy foods and other foods that may be irritating to your stomach. Avoid laying flat 3-4 hours after eating and elevate the head of the bed 30 degrees to prevent acid from moving into the esophagus. (8) Insomnia: Code(s): G47.00 - Insomnia, unspecified Category: Medical Plan: Has been using Ambien with good benefit. Plan This note was constructed using voice recognition software. While every effort has been made to ensure accuracy and public area attendant, still areas may have been included sometimes these areas may affect the content or meeting of the given symptoms. Total time spent caring for the patient today was 30 minutes. This includes time spent before the visit reviewing the chart, time spent during the visit, and time spent after the visit and documentation. Patient was informed and verbally consented to the use of an ambient scribe for clinic note documentation during this visit. Orders: Orders Influenza [id number] Immunization Today Z23 - Encounter for immunization Td Immunization Today Z23 - Encounter for immunization
[2025-02-12 15:03] VITALS: BP 110/80
--- OUTSIDE RECORDS SUMMARY | 2025-02-13 04:06 | XMS_ITS | Clinical Summary ---
Author Organization [facility] it Address [address] [place] [address] Care Team Providers Care Windows Deployment Technician Name Role Phone Jamal Oliva MD Primary Care Provider [phone] Surgical History Surgery Date Site/Laterality Comments TUBAL LIGATION PROCEDURE: HISTORICAL TUBAL LIGATION OTHER SURGICAL HISTORY PROCEDURE: HI COLONOSCOPY FLX W/ENDOSCOPIC MUCOSAL RESECTION COLONOSCOPY 11/20/2020 [...] 06/29/2022 8:41 AM EDT Plan of Treatment Upcoming Encounters Date Type Department Care Team (Late st Contact Info) Description 05/29/2025 2:45 PM EST Consult Bariatric Surgery - [address] [place] [address] Rico Crawford MD [address] [place] [phone] Health Maintenance Due Date Last Done Comments Breast Cancer Screening 1971 Colorectal Cancer Screening: Colonoscopy 1971 DTaP,Tdap,and Td Vaccines (1 - Tdap) 1990 Hepatitis B Vaccines (1 of 3 - 19+ 3-dose series) 1990 Cervical Cancer Screening: P ap Smear 01/25/1992 Pneumococcal Vaccine: 50+ Ye ars (1 of 1 - PCV) 2021 Zoster Vaccines (1 of 2) 2021 Cholesterol Screening (Lipid Panel) 02/28/2022 HIV Screening 02/28/2022 Hepatitis C Screening 02/28/2022 Social Influencers of Health Screening 02/28/2022 Hypertension/CHF/CAD Annual BMP Blood Test 03/14/2022 Depression Screening 03/29/2024 COVID-19 Vaccine ( - 2024-2 6 season) 2024 Influenza Vaccine (#1) 2024 RSV Immunization Adult Patie nts (1 - 1-dose 75+ series) 2046 HIB Vaccines Aged Out No longer eligi [...] on patient's age to complete this topic Insurance MEDICAID - [place] Care Teams Windows Deployment Technician Relationship Specialty Start Date End Date Jamal Oliva MD [address] [place] [address] [address] [facility] [place] [address] PCP - General Internal Medicine 03/01/19
== END 2025-02-12 15:30 | disposition home or self-care (01) ==
LOC: HO.HMCH 14:13
PROVIDERS: PCP Internal Medicine
DX: Z00.00 Encounter for general adult medical examination without abnormal findings (principal); E11.65 Type 2 diabetes mellitus with hyperglycemia; E66.9 Obesity, unspecified; Z68.26 Body mass index [BMI] 26.0-26.9, adult; F41.1 Generalized anxiety disorder; F41.0 Panic disorder [episodic paroxysmal anxiety]; I10 Essential (primary) hypertension; E78.00 Pure hypercholesterolemia, unspecified; K21.9 Gastro-esophageal reflux disease without esophagitis; G47.00 Insomnia, unspecified; Z23 Encounter for immunization

== ENCOUNTER → 2025-02-12 14:12 | Outpatient (BNVA) | payer OTHER, SELFPAY | PROVIDERS: PCP Internal Medicine | DX: Z00.00 Encounter for general adult medical examination without abnormal findings (principal); I10 Essential (primary) hypertension; E78.00 Pure hypercholesterolemia, unspecified; K21.9 Gastro-esophageal reflux disease without esophagitis; E11.9 Type 2 diabetes mellitus without complications; F41.1 Generalized anxiety disorder; F41.0 Panic disorder [episodic paroxysmal anxiety]; E11.65 Type 2 diabetes mellitus with hyperglycemia; G47.00 Insomnia, unspecified; Z23 Encounter for immunization | CPT/HCPCS: 90471; 90472; 90656; 90714; 96127; 99396 ==

== ENCOUNTER 2025-02-14 08:11 | Outpatient (REF) | payer OTHER, SELFPAY ==
[2025-02-14 09:05] LABS: Alanine Aminotransferase 30 U/L (0-31); Albumin Level 4.4 g/dL (3.5-5.0); Alkaline Phosphatase 75 U/L (39-117); Anion Gap 11 (12-20); Aspartate Amino Transferase 22 U/L (5-31); Blood Urea Nitrogen 15 mg/dL (9-16); Calcium 9.2 mg/dL (8.4-10.2); Carbon Dioxide 27 mmol/L (22-29); Chloride 104 mmol/L (96-108); Cholesterol 174 mg/dL (<200); Estimated Glomerular Filt Rate > 60; HDL Cholesterol 46 mg/dL (>40); Potassium 3.8 mmol/L (3.3-5.1); Sodium 138 mmol/L (135-145); Total Protein 7.6 g/dL (6.5-8.0); Triglycerides 111 mg/dL (<150)
== END 2025-02-14 08:12 | disposition home or self-care (01) ==
LOC: HO.LAB 08:11
PROVIDERS: PCP Internal Medicine; Visit Provider Internal Medicine
DX: E11.65 Type 2 diabetes mellitus with hyperglycemia (principal); M79.604 Pain in right leg; M79.605 Pain in left leg; E78.00 Pure hypercholesterolemia, unspecified
CPT/HCPCS: 36415; 80053; 80061; 82550; 82570; 83036; 85652

== ENCOUNTER 2025-02-20 15:43 | Outpatient (AMB) | payer OTHER, SELFPAY ==
[2025-02-20 15:46] VITALS: BP 112/80; PULSE 75; TEMP 36.1; O2SAT 99; BMI 26.3
--- NOTE | 2025-02-20 15:46 | MHC.PC.OV ---
Vital Signs 02/20/25 15:46 Height 5 ft 7 in Weight 168 lb BMI 26.3 BP 112/80 Blood Pressure Location Lt brachial Position Sitting Pulse 75 Pulse Source Pulse Oximeter Temp 97.0 F Temp Source Temporal Artery Scan Pulse Oximetry (%) 99 Oxygen Delivery Method Room Air Intake Visit Reasons: cholesterol Allergies morphine (MORPHINE) Allergy (Severe, Verified 02/20/25 15:46) REDNESS, RASH, ITCHING, rash metformin Adverse Reaction (Intermediate, Verified 02/20/25 15:46) constipation Tobacco use date assessed: 02/20/25 Dental Screening Dental Screen Date: 02/20/25 Did you have a dental visit in the last 12 months?: Yes Did you have a dental problem in the last 6 months where you did not have access to dental care?: No Was dental information given to patient?: Patient has dentist HPI HPI Comments History of Present Illness Details History of Present Illness The patient is a 55-year-old individual presenting for a follow-up visit. The last visit was for a physical exam on February 12. The patient is noted to be overweight and has a medical history of hypertension, hypercholesterolemia, GERD, diabetes mellitus, a history of nephrolithiasis, and generalized anxiety disorder. Recent blood work was completed. The patient is prescribed alprazolam for as-needed use and has been placed on Mounjaro 5 mg once a week for diabetes. Health Maintenance The patient is scheduled for a mammogram in March 2024 and a colonoscopy in September 2024. Social History Results - Labs: - Sedimentation rate: Mildly elevated at 28. - Electrolytes: Normal. - Renal function: Good. - Blood sugar: Normal. - Hemoglobin A1c: Normal. - Liver function: Fine. - Creatine Kinase (CK): 463 (from 3 months prior). - LDL: 106 mg/dL. [facility] Medical History Right hip pain Bilateral hand pain Diabetes mellitus type 2, controlled, without complications Type 2 diabetes mellitus with hyperglycemia History of renal calculi GERD (gastroesophageal reflux disease) Insomnia Obesity (BMI 30-39.9) Hypertension Hypercholesterolemia Tobacco abuse Surgical History H/O colonoscopy Hx of abdominal surgery History of kidney surgery History of tubal ligation Diverticulitis Family History Father Hypertension Mother Colon cancer Diabetes Sister Diabetes Lymphoma Family/Other Mental health disorder Social History Household Members: Spouse and Children Housing: House Are you a primary vision care associate to a significant other at home: No Do you presently have visiting nurse or other home services: No Alcohol intake: current Alcohol intake frequency: holidays/special occasions only Patient Tobacco Use Status: Never used Tobacco Tobacco use type: Smokeless Tobacco Years Smoked: 2004 but vaping e-Cigarette/Vaping Use: Currently Using Second Hand Smoke Exposure: No service: No Current occupational status: employed Current occupational exposures/hazards: No Cognitive needs: No Hearing needs: No Vision needs: Yes Questionnaire PHQ-9 Over the last 2 weeks, how often have you been bothered by any of the following problems? 1. Little interest or pleasure in doing things: not at all 2. Feeling down, depressed, or hopeless: not at all 3. Trouble falling or staying asleep, or sleeping too much: not at all 4. Feeling tired or having little energy: not at all 5. Poor appetite or overeating: not at all 6. Feeling bad about yourself - or that you are a failure or have let yourself or your family down: not at all 7. Trouble concentrating on things, such as reading the newspaper or watching television: nearly every day 8. Moving or speaking so slowly that other people could have noticed. Or the opposite - being so fidgety or restless that you have been moving around a lot more than usual: not at all 9. Thoughts that you would be better off or of hurting yourself in some way: not at all Total score: 3 Depression Screening Interpretation: Negative Depression Screening Done: Yes Source: Developed by Drs. Shorty Chin, Carmen Ramon, Zachary Schuster and colleagues, with an educational greg from [employer]. Thrive Questionnaire Date Thrive assessed: 08/18/24 I am a: Patient What is your living situation today?: I have a steady place to live Within the past 12 months, did the food you bought not last and you didn't have the money to get more?: I choose not to answer this question Within the past 12 months, did you worry whether your food would run out before you got money to buy more?: Often true Do you have trouble paying for medicines?: I choose not to answer this question Do you have trouble getting transportation to medical appointments?: I choose not to answer this question Do you have trouble paying your heating and electricity bill?: Yes Do you have trouble taking care of your child, family member or friend?: No Do you have trouble with day-to-day activities such as bathing, preparing meals, shopping, managing finances, etc.?: No Are you currently unemployed and looking for a job?: No Are you interested in more education?: No Please select the resources that you would like help with: None Currently or been in a relationship where the following occur: I choose not to answer THRIVE Score: 2 AUDIT C Alcohol Use Questionnaire (AUDIT-C) 1. How often do you have a drink containing alcohol?: Never 3. How often do you have six or more drinks on one occasion?: Never Total Score: 0 VICTORIA-7 AMB Questionnaire VICTORIA-7 Date VICTORIA - 7 assessed: 10/27/24 Feeling nervous, anxious, or on edge: 3 = Nearly every day Not being able to stop or control worryin = Several days Worrying too much about different things: 1 = Several days Trouble relaxin = Nearly every day Being so restless that it is hard to sit still: 3 = Nearly every day Becoming easily annoyed or irritable: 1 = Several days Feeling afraid as if something awful might happen: 0 = Not at all Total VICTORIA-7 score (0-4 normal; 5-9 mild; 10-14 moderate; 15-21 severe): 12 Source: Developed by Drs. Shorty Chin, Carmen Ramon, Zachary Schuster and colleagues, with an educational greg from [employer]. Review of Systems Narrative Review of Systems Physical exam (Primary Care) Vital Signs: Last Vital Signs Temp 97.0 F 02/20/25 15:46 Pulse 75 02/20/25 15:46 BP 112/80 02/20/25 15:46 Pulse Ox 99 02/20/25 15:46 Oxygen Delivery Method Room Air 02/20/25 15:46 BMI result Body Mass Index 26.3 Tobacco/Smoking Status: Tobacco use Status Tobacco use date assessed 02/20/25 02/20/25 15:53 Patient Tobacco Use Status Never used Tobacco 02/20/25 15:53 Tobacco use type Smokeless Tobacco 02/20/25 15:53 e-Cigarette/Vaping Use Currently Using 02/20/25 15:53 PHQ-9: PHQ-9 Score PHQ-9: Total score 3 02/20/25 15:58 Depression Screening Interpretation: Negative Thrive Assessment: Date of Thrive Assessment Date Thrive assessed 08/18/24 02/20/25 15:53 Currently or been in a relationship where the following occur: I choose not to answer Narrative Physical Exam - Constitutional: Overweight. Const General: alert; No acute distress Eyes Conjunctivae: conjunctivae normal Resp Auscultation: clear to auscultation bilaterally Cardio Rate: regular rate Rhythm: regular rhythm GI Inspection: Yes normal to inspection Extrem General: Yes normal to inspection and No edema Coding Level of Care Code Est Pt Level 4 (75969) Diagnoses Generalized anxiety disorder with panic attacks F41.1; F41.0 Type 2 diabetes mellitus with hyperglycemia, without long-term current use of insulin E11.65 Diabetes mellitus custodial insulin use: without custodial use Gastroesophageal reflux disease, unspecified whether esophagitis present K21.9 Esophagitis presence: esophagitis presence not specified Assessment & Plan Assessment & Plan (1) Generalized anxiety disorder with panic attacks: Code(s): F41.1 - Generalized anxiety disorder; F41.0 - Panic disorder [episodic paroxysmal anxiety] Category: Medical Plan: Patient on alprazolam as needed (2) Type 2 diabetes mellitus with hyperglycemia: Code(s): E11.65 - Type 2 diabetes mellitus with hyperglycemia Category: Medical Qualifiers: Diabetes mellitus custodial insulin use: without longwall foreman use Qualified Code(s): E11.65 - Type 2 diabetes mellitus with hyperglycemia Plan: Decrease the amount of carbohydrate intake, pasta, bread, rice and potatoes are all sugar and that is aside from all the sweet stuff, remember that fruits are good but they are Sweet also. Placed on Mounjaro 5 mg once a week (3) GERD (gastroesophageal reflux disease): Code(s): K21.9 - Gastro-esophageal reflux disease without esophagitis Category: Medical Qualifiers: Esophagitis presence: esophagitis presence not specified Qualified Code(s): K21.9 - Gastro-esophageal reflux disease without esophagitis Plan: Avoid the foods that causes that usually spicy foods, tomato products, juices, coffee, soda and foods that your sensitive to. After eating do not lie down, allow 3-4 hours before in lie down. And keep the head of bed above 30 degrees to avoid the acid from going up. Plan Plan Patient was informed and verbally consented to the use of an ambient scribe for clinic note documentation during this visit. 1. Diabetes Mellitus The patient will be started on Mounjaro 5 mg once a week. 2. Generalized Anxiety Disorder Continue alprazolam as needed. Discussion Notes Patient Instructions - You will start taking Mounjaro 5 mg once a week for your diabetes. - Continue taking alprazolam as needed for anxiety. Orders: Orders Complete Blood Count Auto Diff 6 Months E11. - Type 2 diabetes mellitus with hyperglycemia Free T4 (Free Thyroxine) 6 Months E11. - Type 2 diabetes mellitus with hyperglycemia Lipid Panel 6 Months E11. - Type 2 diabetes mellitus with hyperglycemia, E78.00 - Pure hypercholesterolemia, unspecified Vitamin D 25-OH Total 6 Months E11. - Type 2 diabetes mellitus with hyperglycemia Hemoglobin A1c 6 Months E11. - Type 2 diabetes mellitus with hyperglycemia Comprehensive Met. Panel 6 Months E11. - Type 2 diabetes mellitus with hyperglycemia Thyroid Stimulating Hormone 6 Months E11. - Type 2 diabetes mellitus with hyperglycemia Vitamin B12 and Folate 6 Months E11. - Type 2 diabetes mellitus with hyperglycemia Microalbumin, Random (w Creat) 6 Months E11. - Type 2 diabetes mellitus with hyperglycemia Creatinine Urine 6 Months E11. - Type 2 diabetes mellitus with hyperglycemia Referrals Ophthalmology Referral E11.65 - Type 2 diabetes mellitus with hyperglycemia
--- OUTSIDE RECORDS SUMMARY | 2025-02-20 19:11 | XMS_ITS | Clinical Summary ---
Author Organization [facility] it Address [address] [place] [address] Care Team Providers Care Farm Mechanic Apprentice Name Role Phone Jamal Oliva MD Primary Care Provider [phone] Surgical History Surgery Date Site/Laterality Comments TUBAL LIGATION PROCEDURE: HISTORICAL TUBAL LIGATION OTHER SURGICAL HISTORY PROCEDURE: [place] COLONOSCOPY FLX W/ENDOSCOPIC MUCOSAL RESECTION COLONOSCOPY 11/20/2020 [...] 2:45 PM EST Consult Bariatric Surgery - [address] [place] [address] Rico Crawford MD [address] [place] [phone] Health Maintenance Due Date Last Done [...] topic Insurance MEDICAID - [place] Care Teams Farm Mechanic Apprentice Relationship Specialty Start Date End Date Jamal Oliva MD [address] [place] [address] [address] [facility] [place] [address] PCP - General Internal Medicine 03/01/19
== END 2025-02-20 16:13 | disposition home or self-care (01) ==
LOC: HO.HMCH 15:44
PROVIDERS: PCP Internal Medicine; Visit Provider Internal Medicine
DX: F41.1 Generalized anxiety disorder (principal); F41.0 Panic disorder [episodic paroxysmal anxiety]; E11.65 Type 2 diabetes mellitus with hyperglycemia; K21.9 Gastro-esophageal reflux disease without esophagitis

== ENCOUNTER → 2025-02-20 15:43 | Outpatient (BNVA) | payer OTHER, SELFPAY | PROVIDERS: PCP Internal Medicine; Visit Provider Internal Medicine | DX: I10 Essential (primary) hypertension (principal); E78.00 Pure hypercholesterolemia, unspecified; K21.9 Gastro-esophageal reflux disease without esophagitis; E11.9 Type 2 diabetes mellitus without complications; F41.1 Generalized anxiety disorder; F41.0 Panic disorder [episodic paroxysmal anxiety]; E11.65 Type 2 diabetes mellitus with hyperglycemia | CPT/HCPCS: 99212 ==